=== PATIENT | male | born 1965 | race Caucasian/White ===

== ENCOUNTER 2018-09-25 23:33 | Emergency (ER) | payer SELFPAY ==
--- NOTE | 2018-09-25 23:53 | EDM.PDOC ---
ED HPI GENERAL MEDICAL PROBLEM - General Chief Complaint: Back Pain or Injury Stated Complaint: BACK PAIN Time Seen by Provider: 09/25/18 23:48 - History of Present Illness INITIAL COMMENTS - FREE TEXT/NARRATIVE: HISTORY AND PHYSICAL: History of present illness: History 23-year-old male history of chronic back pain was diagnosed in 2018 with a L1 compression fracture he denies any recent trauma and chief complaint is low back pain Review of systems: As per history of present illness and below otherwise all systems reviewed and negative. Past medical history: As per history of present illness and as reviewed below otherwise noncontributory. Surgical history: As per history of present illness and as reviewed below otherwise noncontributory. Social history: No reported history of drug or alcohol abuse. Family history: As per history of present illness and as reviewed below otherwise noncontributory. Physical exam: HEENT: Atraumatic, normocephalic, pupils reactive, negative for conjunctival pallor or scleral icterus, mucous membranes moist, throat clear, neck supple, nontender, trachea midline. Lungs: Clear to auscultation, breath sounds equal bilaterally, chest nontender. Heart: S1S2, regular, negative for clicks, rubs, or JVD. Abdomen: Soft, nondistended, nontender. Negative for masses or hepatosplenomegaly. Negative for costovertebral tenderness. Pelvis: Stable nontender. Genitourinary: Deferred. Rectal: Deferred. Extremities: Atraumatic, negative for cords or calf pain. Neurovascular unremarkable. Neuro: Awake, alert, oriented. Cranial nerves II through XII unremarkable. Cerebellum unremarkable. Motor and sensory unremarkable throughout. Exam nonfocal. Back: Patient is mild paravertebral tenderness level lumbar spine no vertebral body or point tenderness he is able stand on his toes back on his heels deep tendon reflex motor sensory are normal Diagnostics: CT lumbar spine Therapeutics: Tylenol 975 mg by mouth Impression: #1 chronic back pain #2 L1 compression fracture Definitive disposition and diagnosis as appropriate pending reevaluation and review of above. Lower Back Pain Score (Numeric/FACES): 8 - Related Data Allergies Allergy/AdvReac Type Severity Reaction Status Date / Time No Known Allergies Allergy Verified 09/25/18 23:47 Home Meds: Home Meds . [No Known Home Meds] 09/25/18 [History] Past Medical History HEENT History: Reports: Impaired Vision, Other (See Below) Other HEENT History: uses corrective glasses Cardiovascular History: Reports: None Respiratory History: Reports: None Gastrointestinal History: Reports: Cholelithiasis Genitourinary History: Reports: Prostate Disorder, Other (See Below) Other Genitourinary History: unable to see urologist- no insurance Musculoskeletal History: Reports: None Neurological History: Reports: None Psychiatric History: Reports: Addiction, Other (See Below) Other Psychiatric History: Alcoholic. seasonal depression Endocrine/Metabolic History: Reports: None Hematologic History: Reports: None Immunologic History: Reports: None Oncologic (Cancer) History: Reports: None Dermatologic History: Reports: None, Other (See Below) Other Dermatologic History: claimed he has "acne all over his body" - Infectious Disease History Infectious Disease History: Reports: Chicken Pox - Past Surgical History Head Surgeries/Procedures: Reports: None HEENT Surgical History: Reports: None GI Surgical History: Reports: Cholecystectomy Male Surgical History: Reports: None Musculoskeletal Surgical History: Reports: None Social & Family History - Family History Family Medical History: Noncontributory - Caffeine Use Caffeine Use: Reports: Soda ED ROS GENERAL - Review of Systems Review Of Systems: ROS reveals no pertinent complaints other than HPI. ED EXAM, GENERAL - Physical Exam Exam: See Below (See dictation) Course - Vital Signs Last Recorded V/S: Last Vital Signs Temp 36.4 C 09/26/18 01:59 Pulse 92 09/26/18 01:59 Resp 18 09/26/18 01:59 BP 126/89 09/26/18 01:59 Pulse Ox 97 09/26/18 01:59 - Orders/Labs/Meds Meds: Medications Discontinued Medications Generic Name Dose Route Start Last Admin Trade Name Grabiel PRN Reason Stop Dose Admin Acetaminophen 975 mg 09/25/18 23:51 09/26/18 00:18 Tylenol PO 09/25/18 23:52 Not Given NOW ONE Departure - Departure Time of Disposition: 02:53 Disposition: Home, Self-Care 01 Condition: Good Clinical Impression: Chronic back pain - Discharge Information Instructions: Chronic Back Pain Referrals: PCP,None [Primary Care Provider] - Forms: ED Department Discharge Additional Instructions: The following information is given to patients seen in the emergency department who are being discharged to home. This information is to outline your options for follow-up care. We provide all patients seen in our emergency department with a follow-up referral. The need for follow-up, as well as the timing and circumstances, are variable depending upon the specifics of your emergency department visit. If you don't have a primary care physician on staff, we will provide you with a referral. We always advise you to contact your personal physician following an emergency department visit to inform them of the circumstance of the visit and for follow-up with them and/or the need for any referrals to a consulting specialist. The emergency department will also refer you to a specialist when appropriate. This referral assures that you have the opportunity for followup care with a specialist. All of these measure are taken in an effort to provide you with optimal care, which includes your followup. Under all circumstances we always encourage you to contact your private physician who remains a resource for coordinating your care. When calling for followup care, please make the office aware that this follow-up is from your recent emergency room visit. If for any reason you are refused follow-up, please contact the [facility] emergency department at and asked to speak to the emergency department charge nurse. Follow-up primary medical doctor as needed as discussed Tylenol as directed return as needed as discussed
[2018-09-26] MEDS: Acetaminophen 325 MG Tab PO ONE ×2 (00:16→00:18)
--- NOTE | 2018-09-26 01:02 | CT ---
INDICATION: Back pain. CT LUMBAR SPINE WITHOUT CONTRAST TECHNIQUE: Multidetector axial CT imaging was performed through the lumbar spine, without contrast. Sagittal and coronal reconstructions were generated. FINDINGS: There is an age-indeterminate [id number] compression fracture of the L1 vertebral body which is favored to be subacute to chronic. This fracture is associated with approximately 7 millimeters of retropulsion resulting in mild spinal stenosis at L1. No other fractures are identified. Disc spaces appear preserved. Endplate spurring is seen at L1-2 and L5-S1. Mild degenerative changes are seen in the lower lumbar facet joints and in the right sacroiliac joint. Spondylosis produces mild spinal stenosis at L4-5. Osseous alignment is within normal limits and no subluxation is seen. Paravertebral soft tissues are unremarkable. There is incompletely imaged fatty infiltration of the liver, retroperitoneal fat stranding, and intraperitoneal fluid. Trace right pleural effusion is also noted. IMPRESSION: 1. No acute fracture identified. 2. Moderate to severe compression fracture of L1, favored to be subacute to chronic. 3. Mild lumbar spondylosis as noted above. 4. Incompletely imaged retroperitoneal fat stranding, intraperitoneal free fluid, and small right pleural effusion. CT of the abdomen and pelvis should be considered for further evaluation. MICHELLE MYRICK MD [employer] Dictated by Dandre Myrick MD @ 09/26/2018 12:59:47 AM Dictated by: Dandre Myrick MD @ 09/26/2018 01:00:51 (Electronically Signed)
[2018-09-26 02:10] VITALS: BP 126/89
== END 2018-09-26 02:00 | disposition home or self-care (01) ==
LOC: MW.ED 23:33
DX: M48.56XA Collapsed vertebra, not elsewhere classified, lumbar region, initial encounter for fracture (principal)
CPT/HCPCS: 72131; 72131-26; 99283; 99283-25; A9270-GY

== ENCOUNTER 2018-12-12 16:29 | Observation (INO) | payer OTHER, MEDICAID ==
--- NOTE | 2018-12-12 16:56 | EDM.PDOC ---
ED HPI GENERAL MEDICAL PROBLEM - General Chief Complaint: Abdominal Pain Stated Complaint: STOMACH PAIN AND SWELLING Time Seen by Provider: 12/12/18 16:33 Source of Information: Reports: Patient History Limitations: Reports: No Limitations - History of Present Illness INITIAL COMMENTS - FREE TEXT/NARRATIVE: HISTORY AND PHYSICAL: History of present illness: Patient is a 53-year-old male presents to the ED today with concern of abdominal pain, abdominal swelling, and bilateral lower leg swelling 4 days. Patient states he is a chronic alcohol user since high school and has drank off and on. Patient states he hasn't drink the last 2 days because he does not have an appetite. Patient states he drinks approximately 12 shots a day of hard alcohol. Patient states he is also a smoker and has been since he was a teenager and smoke about half pack a day. Patient states he's never been diagnosed with any health history and is not on any medications. Patient states he's had his abdomen and his lower legs swell in the past but has resolved quickly unlike this time which has been now for 4 days. Patient states he has not been eating and drinking because he does not feel hungry. Patient states he has lost a lot of weight over the past couple weeks but is unsure of how much weight he has lost. Patient denies any other symptoms or concerns. Patient denies fever, chills, chest pain, shortness of breath, or cough. Denies headache, neck stiff ness, change in vision, syncope, or near syncope. Denies nausea, vomiting, diarrhea, constipation, or dysuria. Has not noted any blood in urine or stool. Review of systems: As per history of present illness and below otherwise all systems reviewed and negative. Past medical history: As per history of present illness and as reviewed below otherwise noncontributory. Surgical history: As per history of present illness and as reviewed below otherwise noncontributory. Social history: See social history for further information Family history: As per history of present illness and as reviewed below otherwise noncontributory. Physical exam: General: Patient is alert, oriented, and in no acute distress. Patient laying comfortably on exam table. Patient appears older than stated age and chronically ill / disheveled. HEENT: Atraumatic, normocephalic, pupils equal and reactive bilaterally, negative for conjunctival pallor but positive for bilateral scleral icterus, mucous membranes dry, TMs normal bilaterally, throat clear, neck supple, nontender, trachea midline. No drooling or trismus noted. No meningeal signs. No hot potato voice noted. Lungs: Clear to auscultation, breath sounds equal bilaterally, chest nontender. Heart: S1S2, regular rate and rhythm without overt murmur Abdomen: Exam is limited due to distention. Firm, distended, generalized moderate tenderness to palpation. Negative for costovertebral tenderness. Pelvis: Stable nontender. Genitourinary: Deferred. Rectal: Deferred. Skin: Generalized jaundice. Extremities: Atraumatic, negative for cords or calf pain. Neurovascular unremarkable. 3+ pitting edema of bilateral lower extremities to the knees. Neuro: Awake, alert, oriented. Cranial nerves II through XII unremarkable. Cerebellum unremarkable. Motor and sensory unremarkable throughout. Exam nonfocal. Notes: Dr. Durham consulted on patient Voices understanding and is agreeable to plan of care. Denies any further questions or concerns at this time. Diagnostics: CBC, CMP, UA, EKG, chest x-ray, troponin, amylase, lipase, BMP, PT/INR, ammonia , abdominal pelvic CT Therapeutics: Lactulose Impression: Liver cirrhosis with ascites Elevated Ammonia Pancreatitis Plan: Definitive disposition and diagnosis as appropriate pending reevaluation and review of above. - Related Data Allergies Allergy/AdvReac Type Severity Reaction Status Date / Time No Known Allergies Allergy Verified 09/25/18 23:47 Home Meds: Home Meds . [No Known Home Meds] 09/25/18 [History] Past Medical History HEENT History: Reports: Impaired Vision, Other (See Below) Other HEENT History: uses corrective glasses Cardiovascular History: Reports: None Respiratory History: Reports: None Gastrointestinal History: Reports: Cholelithiasis Genitourinary History: Reports: Prostate Disorder, Other (See Below) Other Genitourinary History: unable to see urologist- no insurance Musculoskeletal History: Reports: None Neurological History: Reports: None Psychiatric History: Reports: Addiction, Other (See Below) Other Psychiatric History: Alcoholic. seasonal depression Endocrine/Metabolic History: Reports: None Hematologic History: Reports: None Immunologic History: Reports: None Oncologic (Cancer) History: Reports: None Dermatologic History: Reports: None, Other (See Below) Other Dermatologic History: claimed he has "acne all over his body" - Infectious Disease History Infectious Disease History: Reports: Chicken Pox - Past Surgical History Head Surgeries/Procedures: Reports: None HEENT Surgical History: Reports: None GI Surgical History: Reports: Cholecystectomy Male Surgical History: Reports: None Musculoskeletal Surgical History: Reports: None Social & Family History - Family History Family Medical History: Noncontributory - Caffeine Use Caffeine Use: Reports: Soda ED ROS GENERAL - Review of Systems Review Of Systems: ROS reveals no pertinent complaints other than HPI. ED EXAM, GENERAL - Physical Exam Exam: See Below (see dictation) Course - Vital Signs Last Recorded V/S: Last Vital Signs Temp 36.4 C 12/12/18 16:41 Pulse 88 12/12/18 20:40 Resp 20 12/12/18 20:40 BP 133/86 12/12/18 20:40 Pulse Ox 97 12/12/18 20:40 - Orders/Labs/Meds Orders: Active Orders 24 hr Category Date Time Status EKG Documentation Completion [RC] STAT Care 12/12/18 16:49 Active Medication Orders Docusate Sodium (Colace) 100 mg PO BID PRN PRN Reason: Constipation Furosemide (Lasix) 20 mg IVPUSH DAILY JOE Heparin Sodium (Porcine) (Heparin Sodium) 5,000 units SUBCUT Q8H JOE Ibuprofen (Motrin) 400 mg PO Q6H PRN PRN Reason: Pain (mild 1-3) Ondansetron HCl (Zofran Odt) 4 mg PO Q4H PRN PRN Reason: nausea, able to take PO Oxycodone HCl (Oxycodone) 5 mg PO Q4H PRN PRN Reason: Pain (moderate 4-6) Labs: Laboratory Tests 12/12/18 12/12/18 12/12/18 Range/Units 16:45 16:45 16:45 WBC 7.59 (4.0-11.0) K/uL RBC 3.63 L (4.50-5.90) M/uL Hgb 12.9 L (13.0-17.0) g/dL Hct 37.8 L (38.0-50.0) % MCV 104.1 H (80.0-98.0) fL MCH 35.5 H (27.0-32.0) pg MCHC 34.1 (31.0-37.0) g/dL RDW Std Deviation 53.5 (28.0-62.0) fl RDW Coeff of Qing 14 (11.0-15.0) % Plt Count 149 L (150-400) K/uL MPV 11.60 (7.40-12.00) fL Neut % (Auto) 66.6 (48.0-80.0) % Lymph % (Auto) 20.0 (16.0-40.0) % Boone % (Auto) 9.6 (0.0-15.0) % Eos % (Auto) 3.3 (0.0-7.0) % Baso % (Auto) 0.5 (0.0-1.5) % Neut # (Auto) 5.1 (1.4-5.7) K/uL Lymph # (Auto) 1.5 (0.6-2.4) K/uL Boone # (Auto) 0.7 (0.0-0.8) K/uL Eos # (Auto) 0.3 (0.0-0.7) K/uL Baso # (Auto) 0.0 (0.0-0.1) K/uL Nucleated RBC % 0.0 /100WBC Nucleated RBCs # 0 K/uL INR Sodium 138 (136-148) mmol/L Potassium 3.8 (3.5-5.1) mmol/L Chloride 103 (98-107) mmol/L Carbon Dioxide 25.0 (21.0-32.0) mmol/L BUN 6 L (7.0-18.0) mg/dL Creatinine 0.8 (0.8-1.3) mg/dL Est Cr Clr Drug Dosing 113.79 mL/min Estimated GFR (MDRD) > 60.0 ml/min Glucose 111 H (74-106) mg/dL Calcium 9.0 (8.5-10.1) mg/dL Phosphorus (2.6-4.7) mg/dL Magnesium (1.8-2.4) mg/dL Total Bilirubin 5.3 H (0.2-1.0) mg/dL AST 79 H (15-37) IU/L ALT 38 (14-63) IU/L Alkaline Phosphatase 125 H (46-116) U/L Ammonia 96 H (19-54) ug/dL Troponin I (0.000-0.056) ng/mL B-Natriuretic Peptide (<100) PG/ML Total Protein 7.9 (6.4-8.2) g/dL Albumin 2.4 L (3.4-5.0) g/dL Globulin 5.5 H (2.6-4.0) g/dL Albumin/Globulin Ratio 0.4 L (0.9-1.6) Amylase 55 (25-115) U/L Lipase 533 H (73-393) U/L Urine Color Urine Appearance Urine pH (5.0-8.0) Ur Specific [place] (1.001-1.035) Urine Protein (NEGATIVE) mg/dL Urine Glucose (UA) (NEGATIVE) mg/dL Urine Ketones (NEGATIVE) mg/dL Urine Occult Blood (NEGATIVE) Urine Nitrite (NEGATIVE) Urine Bilirubin (NEGATIVE) Urine Ictotest Urine Urobilinogen (<2.0) EU/dL Ur Leukocyte Esterase (NEGATIVE) 12/12/18 12/12/18 12/12/18 Range/Units 16:45 16:45 16:45 WBC (4.0-11.0) K/uL RBC (4.50-5.90) M/uL Hgb (13.0-17.0) g/dL Hct (38.0-50.0) % MCV (80.0-98.0) fL MCH (27.0-32.0) pg MCHC (31.0-37.0) g/dL RDW Std Deviation (28.0-62.0) fl RDW Coeff of Qing (11.0-15.0) % Plt Count (150-400) K/uL MPV (7.40-12.00) fL Neut % (Auto) (48.0-80.0) % Lymph % (Auto) (16.0-40.0) % Boone % (Auto) (0.0-15.0) % Eos % (Auto) (0.0-7.0) % Baso % (Auto) (0.0-1.5) % Neut # (Auto) (1.4-5.7) K/uL Lymph # (Auto) (0.6-2.4) K/uL Boone # (Auto) (0.0-0.8) K/uL Eos # (Auto) (0.0-0.7) K/uL Baso # (Auto) (0.0-0.1) K/uL Nucleated RBC % /100WBC Nucleated RBCs # K/uL INR 1.34 Sodium (136-148) mmol/L Potassium (3.5-5.1) mmol/L Chloride (98-107) mmol/L Carbon Dioxide (21.0-32.0) mmol/L BUN (7.0-18.0) mg/dL Creatinine (0.8-1.3) mg/dL Est Cr Clr Drug Dosing mL/min Estimated GFR (MDRD) ml/min Glucose (74-106) mg/dL Calcium (8.5-10.1) mg/dL Phosphorus (2.6-4.7) mg/dL Magnesium (1.8-2.4) mg/dL Total Bilirubin (0.2-1.0) mg/dL AST (15-37) IU/L ALT (14-63) IU/L Alkaline Phosphatase (46-116) U/L Ammonia (19-54) ug/dL Troponin I < 0.050 (0.000-0.056) ng/mL B-Natriuretic Peptide 102 H (<100) PG/ML Total Protein (6.4-8.2) g/dL Albumin (3.4-5.0) g/dL Globulin (2.6-4.0) g/dL Albumin/Globulin Ratio (0.9-1.6) Amylase (25-115) U/L Lipase (73-393) U/L Urine Color Urine Appearance Urine pH (5.0-8.0) Ur Specific [place] (1.001-1.035) Urine Protein (NEGATIVE) mg/dL Urine Glucose (UA) (NEGATIVE) mg/dL Urine Ketones (NEGATIVE) mg/dL Urine Occult Blood (NEGATIVE) Urine Nitrite (NEGATIVE) Urine Bilirubin (NEGATIVE) Urine Ictotest Urine Urobilinogen (<2.0) EU/dL Ur Leukocyte Esterase (NEGATIVE) 12/12/18 12/12/18 Range/Units 16:45 19:00 WBC (4.0-11.0) K/uL RBC (4.50-5.90) M/uL Hgb (13.0-17.0) g/dL Hct (38.0-50.0) % MCV (80.0-98.0) fL MCH (27.0-32.0) pg MCHC (31.0-37.0) g/dL RDW Std Deviation (28.0-62.0) fl RDW Coeff of Qing (11.0-15.0) % Plt Count (150-400) K/uL MPV (7.40-12.00) fL Neut % (Auto) (48.0-80.0) % Lymph % (Auto) (16.0-40.0) % Boone % (Auto) (0.0-15.0) % Eos % (Auto) (0.0-7.0) % Baso % (Auto) (0.0-1.5) % Neut # (Auto) (1.4-5.7) K/uL Lymph # (Auto) (0.6-2.4) K/uL Boone # (Auto) (0.0-0.8) K/uL Eos # (Auto) (0.0-0.7) K/uL Baso # (Auto) (0.0-0.1) K/uL Nucleated RBC % /100WBC Nucleated RBCs # K/uL INR Sodium (136-148) mmol/L Potassium (3.5-5.1) mmol/L Chloride (98-107) mmol/L Carbon Dioxide (21.0-32.0) mmol/L BUN (7.0-18.0) mg/dL Creatinine (0.8-1.3) mg/dL Est Cr Clr Drug Dosing mL/min Estimated GFR (MDRD) ml/min Glucose (74-106) mg/dL Calcium (8.5-10.1) mg/dL Phosphorus 3.7 (2.6-4.7) mg/dL Magnesium 1.9 (1.8-2.4) mg/dL Total Bilirubin (0.2-1.0) mg/dL AST (15-37) IU/L ALT (14-63) IU/L Alkaline Phosphatase (46-116) U/L Ammonia (19-54) ug/dL Troponin I (0.000-0.056) ng/mL B-Natriuretic Peptide (<100) PG/ML Total Protein (6.4-8.2) g/dL Albumin (3.4-5.0) g/dL Globulin (2.6-4.0) g/dL Albumin/Globulin Ratio (0.9-1.6) Amylase (25-115) U/L Lipase (73-393) U/L Urine Color YELLOW Urine Appearance CLEAR Urine pH 7.5 (5.0-8.0) Ur Specific [place] 1.010 (1.001-1.035) Urine Protein NEGATIVE (NEGATIVE) mg/dL Urine Glucose (UA) NEGATIVE (NEGATIVE) mg/dL Urine Ketones NEGATIVE (NEGATIVE) mg/dL Urine Occult Blood NEGATIVE (NEGATIVE) Urine Nitrite NEGATIVE (NEGATIVE) Urine Bilirubin SMALL H (NEGATIVE) Urine Ictotest NEGATIVE Urine Urobilinogen 2.0 H (<2.0) EU/dL Ur Leukocyte Esterase NEGATIVE (NEGATIVE) Meds: Medications Generic Name Dose Route Start Last Admin Trade Name Freq PRN Reason Stop Dose Admin Docusate Sodium 100 mg 12/12/18 19:41 Colace PO BID PRN Constipation Furosemide 20 mg 12/13/18 09:00 Lasix IVPUSH DAILY [facility] Heparin Sodium (Porcine) 5,000 units 12/12/18 19:45 Heparin Sodium SUBCUT Q8H JOE Ibuprofen 400 mg 12/12/18 19:41 Motrin PO Q6H PRN Pain (mild 1-3) Ondansetron HCl 4 mg 12/12/18 19:41 Zofran Odt PO Q4H PRN nausea, able to take PO Oxycodone HCl 5 mg 12/12/18 19:41 Oxycodone PO Q4H PRN Pain (moderate 4-6) Discontinued Medications Generic Name Dose Route Start Last Admin Trade Name Freq PRN Reason Stop Dose Admin Iopamidol 95 ml 12/12/18 18:48 12/12/18 18:49 Isovue Multipack-370 (76%) IVPUSH 12/12/18 18:49 95 ml ONETIME ONE Administration Lactulose 20 gm 12/12/18 19:13 12/12/18 19:24 Chronulac PO 12/12/18 19:14 20 gm ONETIME ONE Administration Departure - Departure Time of Disposition: 21:05 Disposition: Refer to Observation Clinical Impression: Pancreatitis Qualifiers: Chronicity: acute Pancreatitis type: alcohol induced Acute pancreatitis complication: unspecified Qualified Code(s): K85.20 - Alcohol induced acute pancreatitis without necrosis or infection Alcoholic cirrhosis Qualifiers: Ascites presence: with ascites Qualified Code(s): K70.31 - Alcoholic cirrhosis of liver with ascites - Discharge Information - My Orders Last 24 Hours: My Active Orders 12/12/18 16:49 EKG Documentation Completion [RC] STAT - Assessment/Plan Last 24 Hours: My Active Orders 12/12/18 16:49 EKG Documentation Completion [RC] STAT
[2018-12-12 17:18] LABS: BLOOD UREA NITROGEN,BUN 6 mg/dL (7.0-18.0); CHLORIDE,CL 103 mmol/L (98-107); GLUCOSE RANDOM 111 mg/dL (74-106); LIPASE 533 U/L (73-393); POTASSIUM,K 3.8 mmol/L (3.5-5.1); SODIUM,NA 138 mmol/L (136-148)
--- NOTE | 2018-12-12 18:33 | US ---
INDICATION: Back pain TECHNIQUE: Ultrasound abdomen limited. Sonographic images of the right upper quadrant were obtained using ziegler-scale and color Doppler images. COMPARISON: March 30, 2018 FINDINGS: Liver: The liver has a nodular appearance. The liver measures 19.2 cm in length. No focal masses. No intrahepatic biliary dilatation. Gallbladder: Status post cholecystectomy. Common bile duct: Only the proximal common bile duct is visualized and measures 0.5 cm in diameter. Pancreas: Normal. Right kidney: 13.7 cm. Normal echotexture and cortex. No masses, stones, or hydronephrosis. Moderate amount of ascites. IMPRESSION: Status post cholecystectomy. Only the proximal common bile duct is visualized and is normal in diameter. Consider MRCP for further evaluation if clinically indicated. Moderate amount of ascites. The liver has a nodular appearance and there is mild hepatomegaly. Correlate with clinical history and LFTs. Dictated by Delmy Fernandez MD @ Dec 12 2018 6:28PM Signed by Dr. Delmy Fernandez @ Dec 12 2018 6:32PM
[2018-12-12] MEDS ORDERED: Iopamidol 755 MG/ML 500 ML Multipack Bottle IVPUSH ONE (18:48)
--- NOTE | 2018-12-12 18:48 | CT ---
INDICATION: Pain and swelling TECHNIQUE: CT abdomen and pelvis acquired with 95 cc Isovue 370 intravenous contrast. COMPARISON: Right upper quadrant ultrasound 12/12/2018 FINDINGS: Lower chest: Coronary atherosclerosis. Calcified mediastinal and hilar lymph nodes with bilateral calcified pulmonary nodules. Trace left pleural effusion with minimal dependent atelectasis left lower lobe. Discoid atelectasis right lower lobe. Liver: Liver has mild nodularity was contour consistent with a cirrhotic morphology with hepatic cysts, largest measuring 2.2 centimeters. Recanalized paraumbilical vein demonstrated. Portal vein patent. Gallbladder and bile ducts: Status post cholecystectomy. Pancreas: Unremarkable. No mass or inflammation. Spleen: Calcifications within the spleen consistent with old granulomatous disease. Adrenal glands: Unremarkable. No nodules. Kidneys: Unremarkable. No masses, stones, or hydronephrosis. GI tract: The stomach is decompressed and unremarkable. There is no definite evidence of obstruction. No dilated loops of large or small intestine. Vasculature: Atherosclerosis without abdominal aortic aneurysm. Left upper quadrant varices. Omentum/Peritoneum/Abdominal Wall: [id number] amount of ascites which is low density. Pelvis: Bladder unremarkable. Bones: Old compression fracture L1. IMPRESSION: 1. Nodular contour of the liver consistent with a cirrhotic morphology with recanalized paraumbilical vein and upper abdominal varices. 2. Moderate to large amount of ascites, presumed secondary to portal hypertension. 3. Trace left pleural effusion. 4. Old granulomatous disease. Please note that all CT scans at this facility use dose modulation, iterative reconstruction, and/or weight-based dosing when appropriate to reduce radiation dose to as low as reasonably achievable. Dictated by David Roth MD @ Dec 12 2018 6:38PM Signed by Dr. David Roth @ Dec 12 2018 6:47PM
--- NOTE | 2018-12-12 18:48 | CR ---
INDICATION: Retaining fluid TECHNIQUE: Chest 1 view. COMPARISON: 03/29/2018 FINDINGS: Cardiovascular and mediastinum: Heart size and vasculature are normal in caliber and appearance. Mediastinum is within normal limits. Lungs and pleural space: Elevation right hemidiaphragm with adjacent atelectasis. No sign of infiltrate or mass. No sign of pleural effusion. No pneumothorax. Bones and soft tissues: No significant findings. IMPRESSION: Unremarkable chest. Dictated by Sabino Hammonds MD @ 12/12/2018 6:47:16 PM Dictated by: Sabino Hammonds MD @ 12/12/2018 18:47:25 (Electronically Signed)
[2018-12-12] MEDS ORDERED: Lactulose Soln 10 GM/15 ML 15 ML UD Cup PO ONE (19:13)
[2018-12-12] MEDS ORDERED: Ondansetron 4 MG Tab.DIS PO PRN (19:41)
[2018-12-12] MEDS ORDERED: oxyCODONE 5 MG Tab PO PRN (19:41)
[2018-12-12] MEDS ORDERED: Ibuprofen 400 MG Tab PO PRN (19:41)
[2018-12-12] MEDS ORDERED: Docusate Sodium 100 MG Cap PO PRN (19:41)
[2018-12-12] MEDS ORDERED: Heparin Sodium 5,000 Units/ML Vial SUBCUT SCH (19:45)
--- NOTE | 2018-12-12 19:50 | PCM.HP.2 ---
H&P History of Present Illness - General Date of Service: 12/12/18 Admit Problem/Dx: Admission Diagnosis/Problem Admission Diagnosis/Problem Pancreatitis Source of Information: Patient History Limitations: Reports: No Limitations - History of Present Illness Initial Comments - Free Text/Narative: The patient is a 53-year-old gentleman who presented to the emergency department with a complaint of abdominal pain and swelling. The patient says that his abdominal pain is been generalized and he is feeling bloated. He does not have any specific aggravating or relieving factors. The patient says he has not had any hematemesis or easy bruising. The patient was last in hospital in April of this year. This was for alcohol-related seizure disorder. The patient reports that his last drink was probably 2-3 days ago. He has denied any nausea or vomiting. He has not taking any medications chronically. Patient says that he has not been diagnosed with any medical problems. The patient also elicits a poor appetite. The patient has denied any fever or chills. Onset of Symptoms: Reports: Unknown/Unsure Duration of Symptoms: Reports: Week(s):, Chronic, Getting Worse Location: Reports: Abdomen Quality: Reports: Ache, Pressure Severity: Moderate Improves with: Reports: None Worsens with: Reports: Movement Context: Reports: Other (Heavy alcohol use.) Associated Symptoms: Reports: No Other Symptoms - Related Data Allergies/Adverse Reactions: Allergies Allergy/AdvReac Type Severity Reaction Status Date / Time No Known Allergies Allergy Verified 12/12/18 21:34 Home Medications: Home Meds . [No Known Home Meds] 09/25/18 [History] Past Medical History HEENT History: Reports: Impaired Vision, Other (See Below) Other HEENT History: uses corrective glasses Cardiovascular History: Reports: None Respiratory History: Reports: None Gastrointestinal History: Reports: Cholelithiasis Genitourinary History: Reports: Prostate Disorder, Other (See Below) Other Genitourinary History: unable to see urologist- no insurance Musculoskeletal History: Reports: None Neurological History: Reports: None Psychiatric History: Reports: Addiction, Other (See Below) Other Psychiatric History: Alcoholic. seasonal depression Endocrine/Metabolic History: Reports: None Hematologic History: Reports: None Immunologic History: Reports: None Oncologic (Cancer) History: Reports: None Dermatologic History: Reports: None, Other (See Below) Other Dermatologic History: claimed he has "acne all over his body" - Infectious Disease History Infectious Disease History: Reports: Chicken Pox - Past Surgical History Head Surgeries/Procedures: Reports: None HEENT Surgical History: Reports: None GI Surgical History: Reports: Cholecystectomy Male Surgical History: Reports: None Musculoskeletal Surgical History: Reports: None Social & Family History - Family History Family Medical History: Noncontributory - Tobacco Use Smoking Status *Q: Current Every Day Smoker Years of Tobacco use: 33 Packs/Tins Daily: 1 - Caffeine Use Caffeine Use: Reports: Soda - Recreational Drug Use Recreational Drug Use: No - Living Situation & Occupation Living situation: Reports: Single Occupation: Unemployed H&P Review of Systems - Review of Systems: Review Of Systems: See Below General: Reports: Decreased Appetite, Weight Loss HEENT: Reports: No Symptoms Pulmonary: Reports: No Symptoms Cardiovascular: Reports: No Symptoms Gastrointestinal: Reports: Abdominal Pain, Distension, Other (Bloating). Denies : Hematemesis, Hematochezia Genitourinary: Reports: No Symptoms Musculoskeletal: Reports: No Symptoms Skin: Reports: No Symptoms Psychiatric: Reports: No Symptoms Neurological: Reports: No Symptoms Hematologic/Lymphatic: Reports: No Symptoms Immunologic: Reports: No Symptoms Exam - Exam Exam: See Below - Vital Signs Vital Signs: Last Vital Signs Temp 36.4 C 12/12/18 16:41 Pulse 84 12/12/18 18:56 Resp 18 12/12/18 18:56 BP 134/91 H 12/12/18 18:56 Pulse Ox 98 12/12/18 18:56 Weight: 77.111 kg - Exam Quality Assessment: Other (Significant upper body muscle wasting). No: Supplemental Oxygen General: Alert, Oriented, Cooperative HEENT: Conjunctiva Clear, EACs Clear, EOMI, Pupils Equal, Scleral Icterus, PERRLA. No: Mucosa Moist & [place] (Dry) Neck: Supple, Trachea Midline, Carotid Bruit Lungs: Clear to Auscultation Cardiovascular: Regular Rate, Regular Rhythm GI/Abdominal Exam: Normal Bowel Sounds, Soft, Distended, Tender (Epigastrium), Other (Ascites) Back Exam: No: Normal Inspection (Decrease musculature) Extremities: Pedal Edema (+3 pitting edema). No: Normal Inspection Skin: Warm, Dry, Intact Neurological: Cranial Nerves Intact Neuro Extensive - Mental Status: Alert, Oriented x3, Normal Mood/Affect Psychiatric: Alert, Normal Affect, Normal Mood - Patient Data Lab Results Last 24 hrs: Laboratory Results - last 24 hr 12/12/18 12/12/18 12/12/18 Range/Units 16:45 16:45 16:45 WBC 7.59 (4.0-11.0) K/uL RBC 3.63 L (4.50-5.90) M/uL Hgb 12.9 L (13.0-17.0) g/dL Hct 37.8 L (38.0-50.0) % MCV 104.1 H (80.0-98.0) fL MCH 35.5 H (27.0-32.0) pg MCHC 34.1 (31.0-37.0) g/dL RDW Std Deviation 53.5 (28.0-62.0) fl RDW Coeff of Qing 14 (11.0-15.0) % Plt Count 149 L (150-400) K/uL MPV 11.60 (7.40-12.00) fL Neut % (Auto) 66.6 (48.0-80.0) % Lymph % (Auto) 20.0 (16.0-40.0) % [place]ila % (Auto) 9.6 (0.0-15.0) % Eos % (Auto) 3.3 (0.0-7.0) % Baso % (Auto) 0.5 (0.0-1.5) % Neut # (Auto) 5.1 (1.4-5.7) K/uL Lymph # (Auto) 1.5 (0.6-2.4) K/uL [place]ila # (Auto) 0.7 (0.0-0.8) K/uL Eos # (Auto) 0.3 (0.0-0.7) K/uL Baso # (Auto) 0.0 (0.0-0.1) K/uL Nucleated RBC % 0.0 /100WBC Nucleated RBCs # 0 K/uL INR Sodium 138 (136-148) mmol/L Potassium 3.8 (3.5-5.1) mmol/L Chloride 103 (98-107) mmol/L Carbon Dioxide 25.0 (21.0-32.0) mmol/L BUN 6 L (7.0-18.0) mg/dL Creatinine 0.8 (0.8-1.3) mg/dL Est Cr Clr Drug Dosing 113.79 mL/min Estimated GFR (MDRD) > 60.0 ml/min Glucose 111 H (74-106) mg/dL Calcium 9.0 (8.5-10.1) mg/dL Total Bilirubin 5.3 H (0.2-1.0) mg/dL AST 79 H (15-37) IU/L ALT 38 (14-63) IU/L Alkaline Phosphatase 125 H (46-116) U/L Ammonia 96 H (19-54) ug/dL Troponin I (0.000-0.056) ng/mL B-Natriuretic Peptide (<100) PG/ML Total Protein 7.9 (6.4-8.2) g/dL Albumin 2.4 L (3.4-5.0) g/dL Globulin 5.5 H (2.6-4.0) g/dL Albumin/Globulin Ratio 0.4 L (0.9-1.6) Amylase 55 (25-115) U/L Lipase 533 H (73-393) U/L Urine Color Urine Appearance Urine pH (5.0-8.0) Ur Specific [place] (1.001-1.035) Urine Protein (NEGATIVE) mg/dL Urine Glucose (UA) (NEGATIVE) mg/dL Urine Ketones (NEGATIVE) mg/dL Urine Occult Blood (NEGATIVE) Urine Nitrite (NEGATIVE) Urine Bilirubin (NEGATIVE) Urine Ictotest Urine Urobilinogen (<2.0) EU/dL Ur Leukocyte Esterase (NEGATIVE) 12/12/18 12/12/18 12/12/18 Range/Units 16:45 16:45 16:45 WBC (4.0-11.0) K/uL RBC (4.50-5.90) M/uL Hgb (13.0-17.0) g/dL Hct (38.0-50.0) % MCV (80.0-98.0) fL MCH (27.0-32.0) pg MCHC (31.0-37.0) g/dL RDW Std Deviation (28.0-62.0) fl RDW Coeff of Qing (11.0-15.0) % Plt Count (150-400) K/uL MPV (7.40-12.00) fL Neut % (Auto) (48.0-80.0) % Lymph % (Auto) (16.0-40.0) % Gila % (Auto) (0.0-15.0) % Eos % (Auto) (0.0-7.0) % Baso % (Auto) (0.0-1.5) % Neut # (Auto) (1.4-5.7) K/uL Lymph # (Auto) (0.6-2.4) K/uL Gila # (Auto) (0.0-0.8) K/uL Eos # (Auto) (0.0-0.7) K/uL Baso # (Auto) (0.0-0.1) K/uL Nucleated RBC % /100WBC Nucleated RBCs # K/uL INR 1.34 Sodium (136-148) mmol/L Potassium (3.5-5.1) mmol/L Chloride (98-107) mmol/L Carbon Dioxide (21.0-32.0) mmol/L BUN (7.0-18.0) mg/dL Creatinine (0.8-1.3) mg/dL Est Cr Clr Drug Dosing mL/min Estimated GFR (MDRD) ml/min Glucose (74-106) mg/dL Calcium (8.5-10.1) mg/dL Total Bilirubin (0.2-1.0) mg/dL AST (15-37) IU/L ALT (14-63) IU/L Alkaline Phosphatase (46-116) U/L Ammonia (19-54) ug/dL Troponin I < 0.050 (0.000-0.056) ng/mL B-Natriuretic Peptide 102 H (<100) PG/ML Total Protein (6.4-8.2) g/dL Albumin (3.4-5.0) g/dL Globulin (2.6-4.0) g/dL Albumin/Globulin Ratio (0.9-1.6) Amylase (25-115) U/L Lipase (73-393) U/L Urine Color Urine Appearance Urine pH (5.0-8.0) Ur Specific [place] (1.001-1.035) Urine Protein (NEGATIVE) mg/dL Urine Glucose (UA) (NEGATIVE) mg/dL Urine Ketones (NEGATIVE) mg/dL Urine Occult Blood (NEGATIVE) Urine Nitrite (NEGATIVE) Urine Bilirubin (NEGATIVE) Urine Ictotest Urine Urobilinogen (<2.0) EU/dL Ur Leukocyte Esterase (NEGATIVE) 12/12/18 Range/Units 19:00 WBC (4.0-11.0) K/uL RBC (4.50-5.90) M/uL Hgb (13.0-17.0) g/dL Hct (38.0-50.0) % MCV (80.0-98.0) fL MCH (27.0-32.0) pg MCHC (31.0-37.0) g/dL RDW Std Deviation (28.0-62.0) fl RDW Coeff of Qing (11.0-15.0) % Plt Count (150-400) K/uL MPV (7.40-12.00) fL Neut % (Auto) (48.0-80.0) % Lymph % (Auto) (16.0-40.0) % [place]ila % (Auto) (0.0-15.0) % Eos % (Auto) (0.0-7.0) % Baso % (Auto) (0.0-1.5) % Neut # (Auto) (1.4-5.7) K/uL Lymph # (Auto) (0.6-2.4) K/uL [place] # (Auto) (0.0-0.8) K/uL Eos # (Auto) (0.0-0.7) K/uL Baso # (Auto) (0.0-0.1) K/uL Nucleated RBC % /100WBC Nucleated RBCs # K/uL INR Sodium (136-148) mmol/L Potassium (3.5-5.1) mmol/L Chloride (98-107) mmol/L Carbon Dioxide (21.0-32.0) mmol/L BUN (7.0-18.0) mg/dL Creatinine (0.8-1.3) mg/dL Est Cr Clr Drug Dosing mL/min Estimated GFR (MDRD) ml/min Glucose (74-106) mg/dL Calcium (8.5-10.1) mg/dL Total Bilirubin (0.2-1.0) mg/dL AST (15-37) IU/L ALT (14-63) IU/L Alkaline Phosphatase (46-116) U/L Ammonia (19-54) ug/dL Troponin I (0.000-0.056) ng/mL B-Natriuretic Peptide (<100) PG/ML Total Protein (6.4-8.2) g/dL Albumin (3.4-5.0) g/dL Globulin (2.6-4.0) g/dL Albumin/Globulin Ratio (0.9-1.6) Amylase (25-115) U/L Lipase (73-393) U/L Urine Color YELLOW Urine Appearance CLEAR Urine pH 7.5 (5.0-8.0) Ur Specific [place] 1.010 (1.001-1.035) Urine Protein NEGATIVE (NEGATIVE) mg/dL Urine Glucose (UA) NEGATIVE (NEGATIVE) mg/dL Urine Ketones NEGATIVE (NEGATIVE) mg/dL Urine Occult Blood NEGATIVE (NEGATIVE) Urine Nitrite NEGATIVE (NEGATIVE) Urine Bilirubin SMALL H (NEGATIVE) Urine Ictotest NEGATIVE Urine Urobilinogen 2.0 H (<2.0) EU/dL Ur Leukocyte Esterase NEGATIVE (NEGATIVE) Result Diagrams: 12/13/18 06:05 12/12/18 16:45 *Q Meaningful Use (ADM) - VTE *Q VTE Mechanical Contraindications *Q: Bilateral Lower Edema - Problem List (1) Altered mental state SNOMED Code(s): 881415196 ICD Code: R41.82 - ALTERED MENTAL STATUS, UNSPECIFIED Status: Acute Current Visit: No Problem Details: Secondary to hyperammonemia Qualifiers: Altered mental status type: disorientation Qualified Code(s): R41.0 - Disorientation, unspecified (2) Ascites SNOMED Code(s): 947194518 ICD Code: R18.8 - OTHER ASCITES Status: Chronic Priority: High Current Visit: Yes Qualifiers: Ascites type: due to alcoholic cirrhosis Qualified Code(s): K70.31 - Alcoholic cirrhosis of liver with ascites (3) Cirrhosis, alcoholic SNOMED Code(s): 426245001 ICD Code: K70.30 - ALCOHOLIC CIRRHOSIS OF LIVER WITHOUT ASCITES Status: Chronic Priority: High Current Visit: Yes Qualifiers: Ascites presence: with ascites Qualified Code(s): K70.31 - Alcoholic cirrhosis of liver with ascites (4) Hyperammonemia SNOMED Code(s): 4141821 ICD Code: E72.20 - DISORDER OF UREA CYCLE METABOLISM, UNSPECIFIED Status: Chronic Priority: High Current Visit: Yes (5) Hyperbilirubinemia SNOMED Code(s): 65162280 ICD Code: E80.6 - OTHER DISORDERS OF BILIRUBIN METABOLISM Status: Chronic Priority: Medium Current Visit: Yes (6) Portal hypertension with esophageal varices SNOMED Code(s): 35414030 ICD Code: K76.6 - PORTAL HYPERTENSION; I85.00 - ESOPHAGEAL VARICES WITHOUT BLEEDING Status: Chronic Priority: High Current Visit: Yes (7) Thrombocytopenia SNOMED Code(s): 411083425 ICD Code: D69.6 - THROMBOCYTOPENIA, UNSPECIFIED Status: Acute Current Visit: Yes (8) Alcohol abuse SNOMED Code(s): 98018952 ICD Code: F10.10 - ALCOHOL ABUSE, UNCOMPLICATED Status: Chronic Priority : High Current Visit: Yes (9) Severe protein-calorie malnutrition SNOMED Code(s): 603599659, 513834394, 334155361 ICD Code: E43 - UNSPECIFIED SEVERE PROTEIN-CALORIE MALNUTRITION Status: Chronic Priority: Medium Current Visit: Yes Problem List Initiated/Reviewed/Updated: Yes Orders Last 24hrs: Active Orders 24 hr Category Date Time Status Admission Status [Patient Status] [ADT] Stat ADT 12/12/18 19:33 Active EKG Documentation Completion [RC] STAT Care 12/12/18 16:49 Active Notify Provider Consults [RC] ASDIRECTED Care 12/12/18 19:48 Ordered Oxygen Therapy [RC] PRN Care 12/12/18 19:41 Ordered Up With Assistance [RC] ASDIRECTED Care 12/12/18 19:41 Ordered VTE/DVT Education [RC] PER UNIT ROUTINE Care 12/12/18 19:41 Ordered Vital Signs [RC] Q4H Care 12/12/18 19:41 Ordered Consult to Physician [CONS] Routine Cons 12/12/18 19:41 Ordered Regular Diet [DIET] Diet 12/13/18 Breakfast Ordered AMMONIA VENOUS [CHEM] Stat Lab 12/13/18 05:11 Ordered CBC WITH AUTO DIFF [HEME] AM Lab 12/13/18 05:11 Ordered COMPREHENSIVE METABOLIC PN,CMP [CHEM] AM Lab 12/13/18 05:11 Ordered MAGNESIUM [CHEM] Routine Lab 12/12/18 19:41 Ordered PHOSPHORUS [CHEM] Routine Lab 12/12/18 19:41 Ordered Docusate Sodium [Colace] Med 12/12/18 19:41 Ordered 100 mg PO BID PRN Heparin Sodium Med 12/12/18 19:45 Ordered 5,000 units SUBCUT Q8H Ibuprofen [Motrin] Med 12/12/18 19:41 Ordered 400 mg PO Q6H PRN Ondansetron [Zofran ODT] Med 12/12/18 19:41 Ordered 4 mg PO Q4H PRN oxyCODONE Med 12/12/18 19:41 Ordered 5 mg PO Q4H PRN VTE Mechanical Contraindications [AST] Per Unit Routine Oth 12/12/18 19:41 Ordered Resuscitation Status Routine Resus Stat 12/12/18 19:41 Ordered Medication Orders Docusate Sodium (Colace) 100 mg PO BID PRN PRN Reason: Constipation Heparin Sodium (Porcine) (Heparin Sodium) 5,000 units SUBCUT Q8H JOE Ibuprofen (Motrin) 400 mg PO Q6H PRN PRN Reason: Pain (mild 1-3) Ondansetron HCl (Zofran Odt) 4 mg PO Q4H PRN PRN Reason: nausea, able to take PO Oxycodone HCl (Oxycodone) 5 mg PO Q4H PRN PRN Reason: Pain (moderate 4-6) Assessment/Plan Comment:: The patient is a chronically ill 53-year-old gentleman who had been admitted secondary to abdominal pain. The patient does have elevation in his lipase which is likely chronic secondary to his alcohol use. The patient also has significant ascites and surgery has been consulted for paracentesis. CT scan had indicated that the patient had nodular liver contours consistent with cirrhosis. The esophageal varices that had been noted is also an indicator of portal hypertension. The patient does not have any indication of severe thrombocytopenia or coagulopathy at this time. The patient has been admitted primarily to observation and he will have a regular diet as tolerated. The patient does have significant pedal edema emesis secondary to the patient's nutritional status. He does have severe protein calorie malnutrition and this is a consideration to his alcohol consumption and chronic cirrhosis. All indications at this time indicate that this patient is likely suffering from end -stage cirrhosis. Patient's prognosis is guarded at this time. - Mortality Measure Prognosis:: Poor
[2018-12-12] MEDS: Heparin Sodium 5,000 Units/ML Vial SUBCUT SCH (22:30)
[2018-12-13] MEDS: Heparin Sodium 5,000 Units/ML Vial SUBCUT SCH ×2 (06:02→15:10)
[2018-12-13 07:29] LABS: BLOOD UREA NITROGEN,BUN 6 mg/dL (7.0-18.0); CARBON DIOXIDE,CO2 23.3 mmol/L (21.0-32.0); CHLORIDE,CL 102 mmol/L (98-107); GLUCOSE RANDOM 87 mg/dL (74-106); POTASSIUM,K 4.5 mmol/L (3.5-5.1); SODIUM,NA 139 mmol/L (136-148)
[2018-12-13] MEDS ORDERED: LORazepam 2 MG/ML SDV IVPUSH ONE ×3 (08:59→14:45)
[2018-12-13] MEDS ORDERED: Propranolol 20 MG Tab PO SCH (09:00)
[2018-12-13] MEDS ORDERED: Pantoprazole 40 MG Vial IVPUSH SCH (09:00)
[2018-12-13] MEDS ORDERED: Furosemide 20 MG/2 ML VIAL IVPUSH SCH (09:00)
--- NOTE | 2018-12-13 09:56 | PCM.DCSUM1 ---
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 Hospital course: Patient is a 53-year-old male presenting last night with increasing abdominal pain and discomfort with swelling 2-3 days; states for the past week he has been drinking large volumes of vodka; 9-10 Shots per night, after which he noticed some swelling and abdominal discomfort. On presentation to [facility] ED labs showed hyperbilirubinemia, transaminitis, CT abdomen and pelvis: large volume ascites, esophageal varices, liver cirrhosis, meld score 16. Patient was initiated on Lasix, lactulose, propranolol, Ativan per CIWAA scores. General surgery was consulted for possible paracentesis; however , was ultimately decided to discharge transfer patient to high-level care secondary to complex medical picture and worsening bilirubin. Physical examination: scleral icterus, positive fluid wave, asterixis. No current altered mental status. +3+4 pitting edema lower extremity with redness secondary to possible venous congestion. Sensation intact. Mentation intact. Follow-up: transfer to higher level care [facility]. Discharge instructions: transfer to [facility]. - Discharge Data Discharge Date: 12/13/18 Discharge Disposition: DC/Tfer to Acute Hospital 02 Condition: Fair - Referral to Home Health Primary Care Physician: PCP None - Patient Summary/Data Consults: Consultations 12/12/18 19:41 Consult to Physician [CONS] Routine - Discharge Plan *PRESCRIPTION DRUG MONITORING PROGRAM REVIEWED*: Yes *COPY OF PRESCRIPTION DRUG MONITORING REPORT IN PATIENT MIKE: Yes Home Medications: Home Meds . [No Known Home Meds] 09/25/18 [History] - Discharge Summary/Plan Comment DC Time >30 min.: No - Patient Data Vitals - Most Recent: Last Vital Signs Temp 98.2 F 12/13/18 08:36 Pulse 103 H 12/13/18 08:36 Resp 18 12/13/18 08:36 BP 130/73 12/13/18 08:36 Pulse Ox 93 L 12/13/18 08:36 Weight - Most Recent: 170 lb I&O - Last 24 hours: Intake & Output 12/12/18 12/13/18 12/13/18 22:59 06:59 14:59 Intake Total 500 Balance 500 Lab Results - Last 24 hrs: Laboratory Results - last 24 hr 12/12/18 12/12/18 12/12/18 Range/Units 16:45 16:45 16:45 WBC 7.59 (4.0-11.0) K/uL RBC 3.63 L (4.50-5.90) M/uL Hgb 12.9 L (13.0-17.0) g/dL Hct 37.8 L (38.0-50.0) % MCV 104.1 H (80.0-98.0) fL MCH 35.5 H (27.0-32.0) pg MCHC 34.1 (31.0-37.0) g/dL RDW Std Deviation 53.5 (28.0-62.0) fl RDW Coeff of Qing 14 (11.0-15.0) % Plt Count 149 L (150-400) K/uL MPV 11.60 (7.40-12.00) fL Neut % (Auto) 66.6 (48.0-80.0) % Lymph % (Auto) 20.0 (16.0-40.0) % [place] % (Auto) 9.6 (0.0-15.0) % Eos % (Auto) 3.3 (0.0-7.0) % Baso % (Auto) 0.5 (0.0-1.5) % Neut # (Auto) 5.1 (1.4-5.7) K/uL Lymph # (Auto) 1.5 (0.6-2.4) K/uL [place] # (Auto) 0.7 (0.0-0.8) K/uL Eos # (Auto) 0.3 (0.0-0.7) K/uL Baso # (Auto) 0.0 (0.0-0.1) K/uL Nucleated RBC % 0.0 /100WBC Nucleated RBCs # 0 K/uL INR Sodium 138 (136-148) mmol/L Potassium 3.8 (3.5-5.1) mmol/L Chloride 103 (98-107) mmol/L Carbon Dioxide 25.0 (21.0-32.0) mmol/L BUN 6 L (7.0-18.0) mg/dL Creatinine 0.8 (0.8-1.3) mg/dL Est Cr Clr Drug Dosing 113.79 mL/min Estimated GFR (MDRD) > 60.0 ml/min Glucose 111 H (74-106) mg/dL Calcium 9.0 (8.5-10.1) mg/dL Phosphorus (2.6-4.7) mg/dL Magnesium (1.8-2.4) mg/dL Total Bilirubin 5.3 H (0.2-1.0) mg/dL AST 79 H (15-37) IU/L ALT 38 (14-63) IU/L Alkaline Phosphatase 125 H (46-116) U/L Ammonia 96 H (19-54) ug/dL Troponin I (0.000-0.056) ng/mL B-Natriuretic Peptide (<100) PG/ML Total Protein 7.9 (6.4-8.2) g/dL Albumin 2.4 L (3.4-5.0) g/dL Globulin 5.5 H (2.6-4.0) g/dL Albumin/Globulin Ratio 0.4 L (0.9-1.6) Amylase 55 (25-115) U/L Lipase 533 H (73-393) U/L Urine Color Urine Appearance Urine pH (5.0-8.0) Ur Specific [place] (1.001-1.035) Urine Protein (NEGATIVE) mg/dL Urine Glucose (UA) (NEGATIVE) mg/dL Urine Ketones (NEGATIVE) mg/dL Urine Occult Blood (NEGATIVE) Urine Nitrite (NEGATIVE) Urine Bilirubin (NEGATIVE) Urine Ictotest Urine Urobilinogen (<2.0) EU/dL Ur Leukocyte Esterase (NEGATIVE) 12/12/18 12/12/18 12/12/18 Range/Units 16:45 16:45 16:45 WBC (4.0-11.0) K/uL RBC (4.50-5.90) M/uL Hgb (13.0-17.0) g/dL Hct (38.0-50.0) % MCV (80.0-98.0) fL MCH (27.0-32.0) pg MCHC (31.0-37.0) g/dL RDW Std Deviation (28.0-62.0) fl RDW Coeff of Qing (11.0-15.0) % Plt Count (150-400) K/uL MPV (7.40-12.00) fL Neut % (Auto) (48.0-80.0) % Lymph % (Auto) (16.0-40.0) % [place] % (Auto) (0.0-15.0) % Eos % (Auto) (0.0-7.0) % Baso % (Auto) (0.0-1.5) % Neut # (Auto) (1.4-5.7) K/uL Lymph # (Auto) (0.6-2.4) K/uL [place] # (Auto) (0.0-0.8) K/uL Eos # (Auto) (0.0-0.7) K/uL Baso # (Auto) (0.0-0.1) K/uL Nucleated RBC % /100WBC Nucleated RBCs # K/uL INR 1.34 Sodium (136-148) mmol/L Potassium (3.5-5.1) mmol/L Chloride (98-107) mmol/L Carbon Dioxide (21.0-32.0) mmol/L BUN (7.0-18.0) mg/dL Creatinine (0.8-1.3) mg/dL Est Cr Clr Drug Dosing mL/min Estimated GFR (MDRD) ml/min Glucose (74-106) mg/dL Calcium (8.5-10.1) mg/dL Phosphorus (2.6-4.7) mg/dL Magnesium (1.8-2.4) mg/dL Total Bilirubin (0.2-1.0) mg/dL AST (15-37) IU/L ALT (14-63) IU/L Alkaline Phosphatase (46-116) U/L Ammonia (19-54) ug/dL Troponin I < 0.050 (0.000-0.056) ng/mL B-Natriuretic Peptide 102 H (<100) PG/ML Total Protein (6.4-8.2) g/dL Albumin (3.4-5.0) g/dL Globulin (2.6-4.0) g/dL Albumin/Globulin Ratio (0.9-1.6) Amylase (25-115) U/L Lipase (73-393) U/L Urine Color Urine Appearance Urine pH (5.0-8.0) Ur Specific [place] (1.001-1.035) Urine Protein (NEGATIVE) mg/dL Urine Glucose (UA) (NEGATIVE) mg/dL Urine Ketones (NEGATIVE) mg/dL Urine Occult Blood (NEGATIVE) Urine Nitrite (NEGATIVE) Urine Bilirubin (NEGATIVE) Urine Ictotest Urine Urobilinogen (<2.0) EU/dL Ur Leukocyte Esterase (NEGATIVE) 12/12/18 12/12/18 12/13/18 Range/Units 16:45 19:00 06:05 WBC 6.17 (4.0-11.0) K/uL RBC 3.29 L (4.50-5.90) M/uL Hgb 11.6 L (13.0-17.0) g/dL Hct 34.6 L (38.0-50.0) % MCV 105.2 H (80.0-98.0) fL MCH 35.3 H (27.0-32.0) pg MCHC 33.5 (31.0-37.0) g/dL RDW Std Deviation 54.6 (28.0-62.0) fl RDW Coeff of Qing 14 (11.0-15.0) % Plt Count 121 L (150-400) K/uL MPV 11.30 (7.40-12.00) fL Neut % (Auto) 60.9 (48.0-80.0) % Lymph % (Auto) 22.5 (16.0-40.0) % [place] % (Auto) 11.5 (0.0-15.0) % Eos % (Auto) 4.5 (0.0-7.0) % Baso % (Auto) 0.6 (0.0-1.5) % Neut # (Auto) 3.8 (1.4-5.7) K/uL Lymph # (Auto) 1.4 (0.6-2.4) K/uL [place] # (Auto) 0.7 (0.0-0.8) K/uL Eos # (Auto) 0.3 (0.0-0.7) K/uL Baso # (Auto) 0.0 (0.0-0.1) K/uL Nucleated RBC % 0.0 /100WBC Nucleated RBCs # 0 K/uL INR Sodium (136-148) mmol/L Potassium (3.5-5.1) mmol/L Chloride (98-107) mmol/L Carbon Dioxide (21.0-32.0) mmol/L BUN (7.0-18.0) mg/dL Creatinine (0.8-1.3) mg/dL Est Cr Clr Drug Dosing mL/min Estimated GFR (MDRD) ml/min Glucose (74-106) mg/dL Calcium (8.5-10.1) mg/dL Phosphorus 3.7 (2.6-4.7) mg/dL Magnesium 1.9 (1.8-2.4) mg/dL Total Bilirubin (0.2-1.0) mg/dL AST (15-37) IU/L ALT (14-63) IU/L Alkaline Phosphatase (46-116) U/L Ammonia (19-54) ug/dL Troponin I (0.000-0.056) ng/mL B-Natriuretic Peptide (<100) PG/ML Total Protein (6.4-8.2) g/dL Albumin (3.4-5.0) g/dL Globulin (2.6-4.0) g/dL Albumin/Globulin Ratio (0.9-1.6) Amylase (25-115) U/L Lipase (73-393) U/L Urine Color YELLOW Urine Appearance CLEAR Urine pH 7.5 (5.0-8.0) Ur Specific [place] 1.010 (1.001-1.035) Urine Protein NEGATIVE (NEGATIVE) mg/dL Urine Glucose (UA) NEGATIVE (NEGATIVE) mg/dL Urine Ketones NEGATIVE (NEGATIVE) mg/dL Urine Occult Blood NEGATIVE (NEGATIVE) Urine Nitrite NEGATIVE (NEGATIVE) Urine Bilirubin SMALL H (NEGATIVE) Urine Ictotest NEGATIVE Urine Urobilinogen 2.0 H (<2.0) EU/dL Ur Leukocyte Esterase NEGATIVE (NEGATIVE) 12/13/18 12/13/18 Range/Units 06:05 06:05 WBC (4.0-11.0) K/uL RBC (4.50-5.90) M/uL Hgb (13.0-17.0) g/dL Hct (38.0-50.0) % MCV (80.0-98.0) fL MCH (27.0-32.0) pg MCHC (31.0-37.0) g/dL RDW Std Deviation (28.0-62.0) fl RDW Coeff of Qing (11.0-15.0) % Plt Count (150-400) K/uL MPV (7.40-12.00) fL Neut % (Auto) (48.0-80.0) % Lymph % (Auto) (16.0-40.0) % [place] % (Auto) (0.0-15.0) % Eos % (Auto) (0.0-7.0) % Baso % (Auto) (0.0-1.5) % Neut # (Auto) (1.4-5.7) K/uL Lymph # (Auto) (0.6-2.4) K/uL [place] # (Auto) (0.0-0.8) K/uL Eos # (Auto) (0.0-0.7) K/uL Baso # (Auto) (0.0-0.1) K/uL Nucleated RBC % /100WBC Nucleated RBCs # K/uL INR Sodium 139 (136-148) mmol/L Potassium 4.5 (3.5-5.1) mmol/L Chloride 102 (98-107) mmol/L Carbon Dioxide 23.3 (21.0-32.0) mmol/L BUN 6 L (7.0-18.0) mg/dL Creatinine 0.7 L (0.8-1.3) mg/dL Est Cr Clr Drug Dosing 130.05 mL/min Estimated GFR (MDRD) > 60.0 ml/min Glucose 87 (74-106) mg/dL Calcium 8.1 L (8.5-10.1) mg/dL Phosphorus (2.6-4.7) mg/dL Magnesium (1.8-2.4) mg/dL Total Bilirubin 5.3 H (0.2-1.0) mg/dL AST 68 H (15-37) IU/L ALT 33 (14-63) IU/L Alkaline Phosphatase 103 (46-116) U/L Ammonia 34 (19-54) ug/dL Troponin I (0.000-0.056) ng/mL B-Natriuretic Peptide (<100) PG/ML Total Protein 7.0 (6.4-8.2) g/dL Albumin 2.1 L (3.4-5.0) g/dL Globulin 4.9 H (2.6-4.0) g/dL Albumin/Globulin Ratio 0.4 L (0.9-1.6) Amylase (25-115) U/L Lipase (73-393) U/L Urine Color Urine Appearance Urine pH (5.0-8.0) Ur Specific [place] (1.001-1.035) Urine Protein (NEGATIVE) mg/dL Urine Glucose (UA) (NEGATIVE) mg/dL Urine Ketones (NEGATIVE) mg/dL Urine Occult Blood (NEGATIVE) Urine Nitrite (NEGATIVE) Urine Bilirubin (NEGATIVE) Urine Ictotest Urine Urobilinogen (<2.0) EU/dL Ur Leukocyte Esterase (NEGATIVE) Med Orders - Current: Current Medications Docusate Sodium (Colace) 100 mg PO BID PRN PRN Reason: Constipation Furosemide (Lasix) 20 mg IVPUSH DAILY [facility] Last Admin: 12/13/18 08:32 Dose: 20 mg Heparin Sodium (Porcine) (Heparin Sodium) 5,000 units SUBCUT Q8H [facility] Last Admin: 12/13/18 06:02 Dose: 5,000 units Ibuprofen (Motrin) 400 mg PO Q6H PRN PRN Reason: Pain (mild 1-3) Ondansetron HCl (Zofran Odt) 4 mg PO Q4H PRN PRN Reason: nausea, able to take PO Oxycodone HCl (Oxycodone) 5 mg PO Q4H PRN PRN Reason: Pain (moderate 4-6) Pantoprazole Sodium (Protonix Iv) 40 mg IVPUSH BID [facility] Propranolol HCl (Inderal) 20 mg PO BID [facility] Discontinued Medications Heparin Sodium (Porcine) (Heparin Sodium) 5,000 units SUBCUT Q8H [facility] Last Admin: 12/13/18 00:29 Dose: Not Given Iopamidol (Isovue Multipack-370 (76%)) 95 ml IVPUSH ONETIME ONE Stop: 12/12/18 18:49 Last Admin: 12/12/18 18:49 Dose: 95 ml Lactulose (Chronulac) 20 gm PO ONETIME ONE Stop: 12/12/18 19:14 Last Admin: 12/12/18 19:24 Dose: 20 gm Lorazepam (Ativan) 1 mg IVPUSH ONETIME ONE; Protocol Stop: 12/13/18 09:00 *Q Meaningful Use (DIS) - VTE *Q VTE Mechanical Contraindications *Q: Bilateral Lower Edema
[2018-12-13 12:27] VITALS: BP 88/50; PULSE 73
== END 2018-12-13 14:45 ==
LOC: MW.ED 16:29 → MW.MS 19:33
PROVIDERS: ADMIT Internal Medicine; ATTEND Internal Medicine
DX: R10.84 Generalized abdominal pain (principal); K70.30 Alcoholic cirrhosis of liver without ascites; R18.8 Other ascites; E80.6 Other disorders of bilirubin metabolism; K76.6 Portal hypertension; D69.6 Thrombocytopenia, unspecified; F10.10 Alcohol abuse, uncomplicated; F17.210 Nicotine dependence, cigarettes, uncomplicated; R41.82 Altered mental status, unspecified; E43 Unspecified severe protein-calorie malnutrition; R74.0 Nonspecific elevation of levels of transaminase and lactic acid dehydrogenase [LDH]; D50.9 Iron deficiency anemia, unspecified
CPT/HCPCS: 36415; 71045; 74177; 76705; 80053; 81003; 82140; 82150; 83690; 83735; 83880; 84100; 84484; 85025; 85610; 93005; 96372; 96374; 96375; 96376; 99285; A9270; C9113; G0378; J1644; J2060; Q9967

== ENCOUNTER 2019-03-30 21:10 | Inpatient (IN) | payer MEDICAID ==
[2019-03-30] MEDS ORDERED: LORazepam 2 MG/ML SDV IVPUSH ONE (21:14)
[2019-03-30] MEDS ORDERED: Sodium Chloride 0.9% 1,000 ML IV ONE (21:15)
[2019-03-30 22:22] LABS: BLOOD UREA NITROGEN,BUN 6 mg/dL (7.0-18.0); CARBON DIOXIDE,CO2 19.6 mmol/L (21.0-32.0); CHLORIDE,CL 101 mmol/L (98-107); GLUCOSE RANDOM 87 mg/dL (74-106); POTASSIUM,K 3.6 mmol/L (3.5-5.1); SODIUM,NA 137 mmol/L (136-148)
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
[2019-03-31] MEDS ORDERED: Bacitracin Oint 1 GM U/D Packet TOP ONE (00:29)
--- NOTE | 2019-03-31 00:54 | EDM.PDOC ---
ED HPI GENERAL MEDICAL PROBLEM - General Chief Complaint: Trauma Stated Complaint: ACCIDENT mid back area Pain Score (Numeric/FACES): 8 - Related Data Allergies Allergy/AdvReac Type Severity Reaction Status Date / Time No Known Allergies Allergy Verified 03/30/19 23:06 Home Meds: Home Meds . [No Known Home Meds] 09/25/18 [History] Past Medical History HEENT History: Reports: Impaired Vision, Other (See Below) Other HEENT History: uses corrective glasses Cardiovascular History: Reports: None Respiratory History: Reports: None Gastrointestinal History: Reports: Cholelithiasis Genitourinary History: Reports: Prostate Disorder, Other (See Below) Other Genitourinary History: unable to see urologist- no insurance Musculoskeletal History: Reports: None Neurological History: Reports: None Psychiatric History: Reports: Addiction, Other (See Below) Other Psychiatric History: Alcoholic. seasonal depression Endocrine/Metabolic History: Reports: None Insulin Pump Model and Vet Tech: None Hematologic History: Reports: None Immunologic History: Reports: None Oncologic (Cancer) History: Reports: None Dermatologic History: Reports: None, Other (See Below) Other Dermatologic History: claimed he has "acne all over his body" - Infectious Disease History Infectious Disease History: Reports: Chicken Pox - Past Surgical History Head Surgeries/Procedures: Reports: None HEENT Surgical History: Reports: None GI Surgical History: Reports: Cholecystectomy Male Surgical History: Reports: None Musculoskeletal Surgical History: Reports: None Social & Family History - Family History Family Medical History: Noncontributory - Tobacco Use Smoking Status *Q: Current Every Day Smoker Years of Tobacco use: 20 Packs/Tins Daily: 1 - Caffeine Use Caffeine Use: Reports: Soda - Recreational Drug Use Recreational Drug Use: No - Living Situation & Occupation Living situation: Reports: Single Occupation: Unemployed Course - Vital Signs Last Recorded V/S: Last Vital Signs Temp 36.9 C 03/30/19 21:10 Pulse 106 H 03/30/19 21:10 Resp 18 03/30/19 21:10 BP 173/98 H 03/30/19 21:10 Pulse Ox 98 03/30/19 21:10 - Orders/Labs/Meds Labs: Laboratory Tests 03/30/19 03/30/19 03/30/19 Range/Units 21:53 21:53 21:53 WBC 6.66 (4.0-11.0) K/uL RBC 4.11 L (4.50-5.90) M/uL Hgb 13.2 (13.0-17.0) g/dL Hct 38.4 (38.0-50.0) % MCV 93.4 (80.0-98.0) fL MCH 32.1 H (27.0-32.0) pg MCHC 34.4 (31.0-37.0) g/dL RDW Std Deviation 49.2 (28.0-62.0) fl RDW Coeff of Qing 15 (11.0-15.0) % Plt Count 110 L (150-400) K/uL MPV 10.80 (7.40-12.00) fL Neut % (Auto) 77.1 (48.0-80.0) % Lymph % (Auto) 11.1 L (16.0-40.0) % [place] % (Auto) 10.7 (0.0-15.0) % Eos % (Auto) 0.5 (0.0-7.0) % Baso % (Auto) 0.6 (0.0-1.5) % Neut # (Auto) 5.1 (1.4-5.7) K/uL Lymph # (Auto) 0.7 (0.6-2.4) K/uL [place] # (Auto) 0.7 (0.0-0.8) K/uL Eos # (Auto) 0.0 (0.0-0.7) K/uL Baso # (Auto) 0.0 (0.0-0.1) K/uL Nucleated RBC % 0.0 /100WBC Nucleated RBCs # 0 K/uL INR 1.31 Sodium 137 (136-148) mmol/L Potassium 3.6 (3.5-5.1) mmol/L Chloride 101 (98-107) mmol/L Carbon Dioxide 19.6 L (21.0-32.0) mmol/L BUN 6 L (7.0-18.0) mg/dL Creatinine 0.8 (0.8-1.3) mg/dL Est Cr Clr Drug Dosing TNP Estimated GFR (MDRD) > 60.0 ml/min Glucose 87 (74-106) mg/dL Calcium 8.9 (8.5-10.1) mg/dL Total Bilirubin 2.5 H (0.2-1.0) mg/dL AST 70 H (15-37) IU/L ALT 35 (14-63) IU/L Alkaline Phosphatase 116 (46-116) U/L Troponin I < 0.050 (0.000-0.056) ng/mL Total Protein 8.3 H (6.4-8.2) g/dL Albumin 3.4 (3.4-5.0) g/dL Globulin 4.9 H (2.6-4.0) g/dL Albumin/Globulin Ratio 0.7 L (0.9-1.6) Meds: Medications Discontinued Medications Generic Name Dose Route Start Last Admin Trade Name Freq PRN Reason Stop Dose Admin Sodium Chloride 1,000 mls @ 999 mls/hr 03/30/19 21:15 03/30/19 21:48 Normal Saline IV 03/30/19 22:15 999 mls/hr BOLUS ONE Administration Lorazepam 2 mg 03/30/19 21:14 03/30/19 21:49 Ativan IVPUSH 03/30/19 21:15 2 mg ONETIME ONE Administration Departure - Discharge Information Sepsis Event Note - Evaluation Sepsis Screening Result: No Definite Risk - Focused Exam Vital Signs: Vital Signs Temp Pulse Resp BP Pulse Ox 03/30/19 21:10 36.9 C 106 H 18 173/98 H 98 Date Exam was Performed: 03/31/19 Time Exam was Performed: 00:05
[2019-03-31] MEDS: Folic Acid 1 MG Tab PO SCH ×2 (01:49→09:07)
[2019-03-31] MEDS: Thiamine 100 MG Tab PO SCH ×2 (01:49→09:06)
[2019-03-31] MEDS ORDERED: Magnesium Sulfate/Water 2 GM in Premix Bag 1 BAG IV ONE (02:16)
[2019-03-31] MEDS: LORazepam 2 MG/ML SDV IVPUSH PRN ×2 (05:44→19:15)
[2019-03-31 07:06] LABS: BLOOD UREA NITROGEN,BUN 7 mg/dL (7.0-18.0); CARBON DIOXIDE,CO2 24.1 mmol/L (21.0-32.0); CHLORIDE,CL 100 mmol/L (98-107); GLUCOSE RANDOM 99 mg/dL (74-106); POTASSIUM,K 3.3 mmol/L (3.5-5.1); SODIUM,NA 135 mmol/L (136-148)
[2019-03-31] MEDS ORDERED: Potassium Chloride 20 MEQ Tab.ER PO ONE (08:02)
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
[2019-04-01 06:35] LABS: BLOOD UREA NITROGEN,BUN 12 mg/dL (7.0-18.0); CARBON DIOXIDE,CO2 23.7 mmol/L (21.0-32.0); CHLORIDE,CL 104 mmol/L (98-107); GLUCOSE RANDOM 113 mg/dL (74-106); POTASSIUM,K 3.8 mmol/L (3.5-5.1); SODIUM,NA 138 mmol/L (136-148)
[2019-04-01] MEDS: Folic Acid 1 MG Tab PO SCH (09:04)
[2019-04-01] MEDS: Thiamine 100 MG Tab PO SCH (09:04)
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
[2019-04-02 06:15] LABS: BLOOD UREA NITROGEN,BUN 15 mg/dL (7.0-18.0); CHLORIDE,CL 101 mmol/L (98-107); GLUCOSE RANDOM 93 mg/dL (74-106); POTASSIUM,K 4.2 mmol/L (3.5-5.1); SODIUM,NA 133 mmol/L (136-148)
[2019-04-02] MEDS: Folic Acid 1 MG Tab PO SCH (08:13)
[2019-04-02] MEDS: Thiamine 100 MG Tab PO SCH (08:13)
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
[2019-04-02 12:22] VITALS: BP 97/67; PULSE 84
== END 2019-04-02 14:15 | disposition home or self-care (01) | DRG 897 ==
LOC: MW.ED 21:10 → MW.MS 03-31 00:31 → OBSVTOIN 03-31 12:50 → MW.MS 03-31 22:16
PROVIDERS: ADMIT Internal Medicine; ATTEND Internal Medicine
DX: F10.231 Alcohol dependence with withdrawal delirium (principal); M48.56XA Collapsed vertebra, not elsewhere classified, lumbar region, initial encounter for fracture; M48.54XA Collapsed vertebra, not elsewhere classified, thoracic region, initial encounter for fracture; R44.3 Hallucinations, unspecified; R56.9 Unspecified convulsions; H54.7 Unspecified visual loss; F32.9 Major depressive disorder, single episode, unspecified; F17.210 Nicotine dependence, cigarettes, uncomplicated; E87.6 Hypokalemia; S00.91XA Abrasion of unspecified part of head, initial encounter; G89.29 Other chronic pain; M54.9 Dorsalgia, unspecified; R74.0 Nonspecific elevation of levels of transaminase and lactic acid dehydrogenase [LDH]; Z79.899 Other long term (current) drug therapy; Z90.49 Acquired absence of other specified parts of digestive tract; V49.9XXA Car occupant (driver) (passenger) injured in unspecified traffic accident, initial encounter; W22.10XA Striking against or struck by unspecified automobile airbag, initial encounter
CPT/HCPCS: 36415; 70450; 70450-26; 71250; 71250-26; 72125; 72125-26; 72128; 72128-26; 72131; 72131-26; 80048; 80053; 83735; 84100; 84484; 85025; 85610; 93005; 96361; 96374; 99285-25; A9270-GY; J2060; J3475; J7030

== ENCOUNTER 2019-06-03 18:45 | Observation (INO) | payer MEDICAID ==
[2019-06-03] MEDS ORDERED: Sodium Chloride 0.9% 2.5 ML Syringe FLUSH PRN (18:52)
[2019-06-03] MEDS ORDERED: Sodium Chloride 0.9% 1,000 ML IV ONE (18:52)
[2019-06-03] MEDS ORDERED: Sodium Chloride 0.9% 10 ML Syringe FLUSH PRN (18:52)
[2019-06-03] MEDS ORDERED: LORazepam 2 MG/ML SDV IVPUSH ONE ×2 (18:54→20:17)
--- NOTE | 2019-06-03 19:08 | EDM.PDOC ---
<MarcusDarrel Hieu - Last Filed: 06/03/19 19:03> ED HPI GENERAL MEDICAL PROBLEM - General Chief Complaint: Cardiovascular Problem Stated Complaint: SICK Time Seen by Provider: 06/03/19 19:01 Source of Information: Reports: Patient History Limitations: Reports: No Limitations - History of Present Illness INITIAL COMMENTS - FREE TEXT/NARRATIVE: Pt with reported alcoholism presents to the ed with his heart racing. Pt reports feeling that he is having a pain attack. Pt reports that his last drink was tuesday night and he was trying to quit again. Pt reports nausea and anxiety. He also reports marijuana use this morning. Pt reports prior withdrawal with seizures in the past. - Related Data Allergies Allergy/AdvReac Type Severity Reaction Status Date / Time No Known Allergies Allergy Verified 06/03/19 18:52 Home Meds: Home Meds Folic Acid 1 mg PO DAILY tablet 04/02/19 [Rx] Thiamine [Vitamin B-1] 100 mg PO DAILY tablet 04/02/19 [Rx] Past Medical History HEENT History: Reports: Impaired Vision, Other (See Below) Other HEENT History: uses corrective glasses Cardiovascular History: Reports: None Respiratory History: Reports: None Gastrointestinal History: Reports: Cholelithiasis Genitourinary History: Reports: Prostate Disorder, Other (See Below) Other Genitourinary History: unable to see urologist- no insurance Musculoskeletal History: Reports: None Neurological History: Reports: None Psychiatric History: Reports: Addiction, Other (See Below) Other Psychiatric History: Alcoholic. seasonal depression Endocrine/Metabolic History: Reports: None Insulin Pump Model and Hearing Officer: None Hematologic History: Reports: None Immunologic History: Reports: None Oncologic (Cancer) History: Reports: None Dermatologic History: Reports: None, Other (See Below) Other Dermatologic History: claimed he has "acne all over his body" - Infectious Disease History Infectious Disease History: Reports: Chicken Pox - Past Surgical History Head Surgeries/Procedures: Reports: None HEENT Surgical History: Reports: None GI Surgical History: Reports: Cholecystectomy Male Surgical History: Reports: None Musculoskeletal Surgical History: Reports: None Social & Family History - Family History Family Medical History: Noncontributory - Tobacco Use Smoking Status *Q: Current Every Day Smoker Years of Tobacco use: 40 Packs/Tins Daily: 1 - Caffeine Use Caffeine Use: Reports: Coffee - Recreational Drug Use Recreational Drug Use: Yes Recreational Drug Type: Reports: Marijuana/Hashish - Living Situation & Occupation Living situation: Reports: Single Occupation: Unemployed ED ROS GENERAL - Review of Systems Review Of Systems: See Below Constitutional: Reports: Decreased Appetite Cardiovascular: Reports: Palpitations. Denies: Chest Pain GI/Abdominal: Reports: Nausea Skin: Reports: No Symptoms Psychiatric: Reports: Anxiety ED EXAM, GENERAL - Physical Exam Exam: See Below Exam Limited By: No Limitations General Appearance: Alert, Anxious Head: Atraumatic, Normocephalic Respiratory/Chest: No Respiratory Distress, Lungs Clear, Normal Breath Sounds Cardiovascular: Regular Rate, Rhythm (Tachycardic), No JVD, No Murmur, Tachycardia GI/Abdominal: Soft, Non-Tender, No Distention Back Exam: Normal Inspection Extremities: Normal Inspection Neurological: Alert, Oriented Skin Exam: Dry EKG INTERPRETATION Rhythm: Other (Sinus tachcardia) ST-T: Other (no STEMI) Course - Vital Signs Last Recorded V/S: Last Vital Signs Temp 36.6 C 06/03/19 20:11 Pulse 107 H 06/03/19 20:11 Resp 14 06/03/19 20:11 BP 146/83 H 06/03/19 20:11 Pulse Ox 98 06/03/19 20:11 - Orders/Labs/Meds Orders: Active Orders 24 hr Category Date Time Status EKG Documentation Completion [RC] STAT Care 06/03/19 18:53 Active Magnesium Sulfate [Magnesium Sulfate 50%] Med 06/03/19 20:18 Stat 1 gm IV ONETIME STA Sodium Chloride 0.9% [Saline Flush] Med 06/03/19 18:52 Active 10 ml FLUSH ASDIRECTED PRN Sodium Chloride 0.9% [Saline Flush] Med 06/03/19 18:52 Active 2.5 ml FLUSH ASDIRECTED PRN Saline Lock Insert [OM.PC] Stat Oth 06/03/19 18:52 Ordered Medication Orders Magnesium Sulfate (Magnesium Sulfate 50%) 1 gm IV ONETIME STA Stop: 06/03/19 20:19 Sodium Chloride (Saline Flush) 10 ml FLUSH ASDIRECTED PRN PRN Reason: Keep Vein Open Last Admin: 06/03/19 18:56 Dose: 10 ml Sodium Chloride (Saline Flush) 2.5 ml FLUSH ASDIRECTED PRN PRN Reason: Keep Vein Open Last Admin: 06/03/19 18:56 Dose: 2.5 ml Labs: Laboratory Tests 06/03/19 06/03/19 06/03/19 Range/Units 18:50 18:50 18:50 WBC 9.95 (4.0-11.0) K/uL RBC 4.69 (4.50-5.90) M/uL Hgb 14.8 (13.0-17.0) g/dL Hct 43.0 (38.0-50.0) % MCV 91.7 (80.0-98.0) fL MCH 31.6 (27.0-32.0) pg MCHC 34.4 (31.0-37.0) g/dL RDW Std Deviation 48.7 (28.0-62.0) fl RDW Coeff of Qing 15 (11.0-15.0) % Plt Count 165 (150-400) K/uL MPV 11.30 (7.40-12.00) fL Neut % (Auto) 62.8 (48.0-80.0) % Lymph % (Auto) 20.7 (16.0-40.0) % [place] % (Auto) 14.8 (0.0-15.0) % Eos % (Auto) 1.2 (0.0-7.0) % Baso % (Auto) 0.5 (0.0-1.5) % Neut # (Auto) 6.3 H (1.4-5.7) K/uL Lymph # (Auto) 2.1 (0.6-2.4) K/uL [place] # (Auto) 1.5 H (0.0-0.8) K/uL Eos # (Auto) 0.1 (0.0-0.7) K/uL Baso # (Auto) 0.1 (0.0-0.1) K/uL Nucleated RBC % 0.0 /100WBC Nucleated RBCs # 0 K/uL Sodium 138 (136-148) mmol/L Potassium 3.4 L (3.5-5.1) mmol/L Chloride 98 (98-107) mmol/L Carbon Dioxide 24.4 (21.0-32.0) mmol/L BUN 9 (7.0-18.0) mg/dL Creatinine 1.0 (0.8-1.3) mg/dL Est Cr Clr Drug Dosing 85.68 mL/min Estimated GFR (MDRD) > 60.0 ml/min Glucose 169 H (74-106) mg/dL Calcium 9.7 (8.5-10.1) mg/dL Magnesium (1.8-2.4) mg/dL Total Bilirubin 1.4 H (0.2-1.0) mg/dL AST 55 H (15-37) IU/L ALT 36 (14-63) IU/L Alkaline Phosphatase 118 H (46-116) U/L Troponin I < 0.050 (0.000-0.056) ng/mL Total Protein 8.4 H (6.4-8.2) g/dL Albumin 3.9 (3.4-5.0) g/dL Globulin 4.5 H (2.6-4.0) g/dL Albumin/Globulin Ratio 0.9 (0.9-1.6) Lipase 188 (73-393) U/L Urine Opiates Screen (NEGATIVE) Ur Oxycodone Screen (NEGATIVE) Urine Methadone Screen (NEGATIVE) Ur Barbiturates Screen (NEGATIVE) Ur Phencyclidine Scrn (NEGATIVE) Ur Amphetamine Screen (NEGATIVE) U Methamphetamines Scrn (NEGATIVE) U Benzodiazepines Scrn (NEGATIVE) U Cocaine Metab Screen (NEGATIVE) U Marijuana (THC) Screen (NEGATIVE) Ethyl Alcohol <3 mg/dL 06/03/19 06/03/19 Range/Units 18:59 19:20 WBC (4.0-11.0) K/uL RBC (4.50-5.90) M/uL Hgb (13.0-17.0) g/dL Hct (38.0-50.0) % MCV (80.0-98.0) fL MCH (27.0-32.0) pg MCHC (31.0-37.0) g/dL RDW Std Deviation (28.0-62.0) fl RDW Coeff of Qing (11.0-15.0) % Plt Count (150-400) K/uL MPV (7.40-12.00) fL Neut % (Auto) (48.0-80.0) % Lymph % (Auto) (16.0-40.0) % [place] % (Auto) (0.0-15.0) % Eos % (Auto) (0.0-7.0) % Baso % (Auto) (0.0-1.5) % Neut # (Auto) (1.4-5.7) K/uL Lymph # (Auto) (0.6-2.4) K/uL [place] # (Auto) (0.0-0.8) K/uL Eos # (Auto) (0.0-0.7) K/uL Baso # (Auto) (0.0-0.1) K/uL Nucleated RBC % /100WBC Nucleated RBCs # K/uL Sodium (136-148) mmol/L Potassium (3.5-5.1) mmol/L Chloride (98-107) mmol/L Carbon Dioxide (21.0-32.0) mmol/L BUN (7.0-18.0) mg/dL Creatinine (0.8-1.3) mg/dL Est Cr Clr Drug Dosing mL/min Estimated GFR (MDRD) ml/min Glucose (74-106) mg/dL Calcium (8.5-10.1) mg/dL Magnesium 1.7 L (1.8-2.4) mg/dL Total Bilirubin (0.2-1.0) mg/dL AST (15-37) IU/L ALT (14-63) IU/L Alkaline Phosphatase (46-116) U/L Troponin I (0.000-0.056) ng/mL Total Protein (6.4-8.2) g/dL Albumin (3.4-5.0) g/dL Globulin (2.6-4.0) g/dL Albumin/Globulin Ratio (0.9-1.6) Lipase (73-393) U/L Urine Opiates Screen NEGATIVE (NEGATIVE) Ur Oxycodone Screen NEGATIVE (NEGATIVE) Urine Methadone Screen NEGATIVE (NEGATIVE) Ur Barbiturates Screen NEGATIVE (NEGATIVE) Ur Phencyclidine Scrn NEGATIVE (NEGATIVE) Ur Amphetamine Screen NEGATIVE (NEGATIVE) U Methamphetamines Scrn NEGATIVE (NEGATIVE) U Benzodiazepines Scrn NEGATIVE (NEGATIVE) U Cocaine Metab Screen NEGATIVE (NEGATIVE) U Marijuana (THC) Screen NEGATIVE (NEGATIVE) Ethyl Alcohol mg/dL Meds: Medications Generic Name Dose Route Start Last Admin Trade Name Freq PRN Reason Stop Dose Admin Magnesium Sulfate 1 gm 06/03/19 20:18 Magnesium Sulfate 50% IV 06/03/19 20:19 ONETIME STA Sodium Chloride 10 ml 06/03/19 18:52 06/03/19 18:56 Saline Flush FLUSH 10 ml ASDIRECTED PRN Administration Keep Vein Open Sodium Chloride 2.5 ml 06/03/19 18:52 06/03/19 18:56 Saline Flush FLUSH 2.5 ml ASDIRECTED PRN Administration Keep Vein Open Discontinued Medications Generic Name Dose Route Start Last Admin Trade Name Grabiel PRN Reason Stop Dose Admin Sodium Chloride 1,000 mls @ 999 mls/hr 06/03/19 18:52 06/03/19 18:56 Normal Saline IV 06/03/19 19:52 999 mls/hr BOLUS ONE Administration Lorazepam 1 mg 06/03/19 18:54 06/03/19 19:08 Ativan IVPUSH 06/03/19 18:55 1 mg ONETIME ONE Administration Lorazepam 1 mg 06/03/19 20:17 Ativan IVPUSH 06/03/19 20:18 ONETIME ONE Departure - Departure Disposition: Admitted As Inpatient 64 Clinical Impression: Alcohol withdrawal Qualifiers: Complication of substance-induced condition: uncomplicated Qualified Code(s): F10.230 - Alcohol dependence with withdrawal, uncomplicated Referrals: PCP,Unobtain [Primary Care Provider] - Forms: ED Department Discharge Sepsis Event Note - Evaluation Sepsis Screening Result: No Definite Risk - Focused Exam Vital Signs: Vital Signs Temp Pulse Resp BP Pulse Ox 06/03/19 20:11 36.6 C 107 H 14 146/83 H 98 06/03/19 18:51 36.3 C 145 H 16 138/86 98 Date Exam was Performed: 06/03/19 Time Exam was Performed: 19:03 - My Orders Last 24 Hours: My Active Orders 06/03/19 20:18 Magnesium Sulfate [Magnesium Sulfate 50%] 1 gm IV ONETIME STA - Assessment/Plan Last 24 Hours: My Active Orders 06/03/19 20:18 Magnesium Sulfate [Magnesium Sulfate 50%] 1 gm IV ONETIME STA <Kedar Tapia - Last Filed: 06/03/19 20:25> ED HPI GENERAL MEDICAL PROBLEM - History of Present Illness INITIAL COMMENTS - FREE TEXT/NARRATIVE: I assumed care from Dr. Velazquez. Patient's labs have come back and they show no serum alcohol and slightly low magnesium patient is still lightheaded and tachycardic. CBC chemistries are all at the patient's baseline serum alcohol is negative. Patient's heart rate is 101 at this time blood pressure stable. I believe the patient is withdrawing and will admit him to the hospitalist service for medical detoxification Case discussed with Dr. Villatoro who accepts this patient to his service Departure - Departure Time of Disposition: 20:24 Condition: Good Sepsis Event Note - Focused Exam Date Exam was Performed: 06/03/19 Time Exam was Performed: 20:21
--- NOTE | 2019-06-03 19:16 | CR ---
Chest: Frontal view of the chest was obtained. Comparison: Prior chest x-ray of 12/12/18. Small nodule is noted within the right mid to lower lung measuring approximately 6 mm. This is not identified on prior study with certainty. There is a nodule being seen within the left midlung which is stable from prior exam. Lungs otherwise are clear. Slight tortuosity of the thoracic aorta is noted. Bony structures are grossly intact. Impression: 1. Nodule within the right mid chest which is an interval change from prior chest x-ray. Noncontrast chest CT recommended to further evaluate. 2. Nodule within the left mid chest which is stable from prior chest x-ray and most likely represents a granuloma. 3. Nothing acute is otherwise seen on frontal chest x-ray. Diagnostic code #9 This report was dictated in [place] Standard Time
[2019-06-03 19:27] LABS: BLOOD UREA NITROGEN,BUN 9 mg/dL (7.0-18.0); CARBON DIOXIDE,CO2 24.4 mmol/L (21.0-32.0); CHLORIDE,CL 98 mmol/L (98-107); GLUCOSE RANDOM 169 mg/dL (74-106); LIPASE 188 U/L (73-393); POTASSIUM,K 3.4 mmol/L (3.5-5.1); SODIUM,NA 138 mmol/L (136-148)
[2019-06-03] MEDS ORDERED: Magnesium Sulfate (4.06 MEQ/ML) 5 GM/10 ML SDV IV STA (20:18)
[2019-06-03] MEDS ORDERED: Magnesium Sulfate/Water 2 GM in Premix Bag 1 BAG IV ONE (20:45)
[2019-06-03] MEDS ORDERED: Potassium Chloride 20 MEQ Tab.ER PO ONE (22:38)
[2019-06-03] MEDS ORDERED: LORazepam 2 MG/ML SDV IVPUSH PRN (22:39)
[2019-06-03] MEDS: Folic Acid 50 MG/10 ML MDV SUBCUT SCH (23:21)
[2019-06-03] MEDS ORDERED: Ondansetron 4 MG Tab.DIS PO PRN (23:47)
[2019-06-04] MEDS: Thiamine 100 MG in Sodium Chloride 0.9% 100 ML IV SCH ×2 (00:02→09:20)
[2019-06-04] MEDS: Sodium Chloride 0.9% 1,000 ML IV SCH ×2 (00:08→09:21)
--- NOTE | 2019-06-04 00:57 | PCM.HP.2 ---
H&P History of Present Illness - General Date of Service: 06/04/19 Admit Problem/Dx: Admission Diagnosis/Problem Admission Diagnosis/Problem Alcohol withdrawal syndrome - History of Present Illness Initial Comments - Free Text/Narative: 53 yo male with pmh of alcohol abuse. He was last admitted for alcohol withdrawal two months ago when he was experiencing hallucinations and siezures. Patient reports he has been drinking about a liter every other day. He presented to the ED with complaints of palpitations and tremors. His last drink was two days ago. - Related Data Allergies/Adverse Reactions: Allergies Allergy/AdvReac Type Severity Reaction Status Date / Time No Known Allergies Allergy Verified 06/03/19 21:39 Home Medications: Home Meds Folic Acid 1 mg PO DAILY tablet 04/02/19 [Rx] Thiamine [Vitamin B-1] 100 mg PO DAILY tablet 04/02/19 [Rx] Calcium Carbonate [Calcium] 500 mg PO BID 06/03/19 [History] Past Medical History HEENT History: Reports: Impaired Vision, Other (See Below) Other HEENT History: uses corrective glasses Cardiovascular History: Reports: None Respiratory History: Reports: None Gastrointestinal History: Reports: Cholelithiasis, Cirrhosis, Other (See Below) Other Gastrointestinal History: Had Paracentesis done twice November or December 2018 Genitourinary History: Reports: Prostate Disorder, Other (See Below) Other Genitourinary History: unable to see urologist- no insurance. Difficulty emptying his bladder. Stated "it takes forever to empty it." Musculoskeletal History: Reports: None Neurological History: Reports: None Psychiatric History: Reports: Addiction, Depression, Other (See Below) Other Psychiatric History: Alcoholic. seasonal depression Endocrine/Metabolic History: Reports: None Insulin Pump Model and Axle Inspector: None Hematologic History: Reports: None Immunologic History: Reports: None Oncologic (Cancer) History: Reports: None Dermatologic History: Reports: Other (See Below) Other Dermatologic History: claimed he has "acne all over his body" - Infectious Disease History Infectious Disease History: Reports: Chicken Pox - Past Surgical History Head Surgeries/Procedures: Reports: None HEENT Surgical History: Reports: None GI Surgical History: Reports: Cholecystectomy Male Surgical History: Reports: None Musculoskeletal Surgical History: Reports: None Social & Family History - Family History Family Medical History: Noncontributory - Tobacco Use Smoking Status *Q: Current Every Day Smoker Years of Tobacco use: 35 Packs/Tins Daily: 1 - Caffeine Use Caffeine Use: Reports: Coffee Other Caffeine Use: 1 cup coffee - Alcohol Use Days Per Week of Alcohol Use: 7 Number of Drinks Per Day: 20 Total Drinks Per Week: 140 Date of Last Drink: 06/01/19 Time of Last Drink: 23:00 - Recreational Drug Use Recreational Drug Use: Yes Drug Use in Last 12 Months: Yes Recreational Drug Type: Reports: Marijuana/Hashish Recreational Drug Use Frequency: Rarely - Living Situation & Occupation Living situation: Reports: Single Occupation: Unemployed H&P Review of Systems - Review of Systems: Review Of Systems: Comprehensive ROS is negative, except as noted in HPI. Exam - Exam Exam: See Below - Vital Signs Vital Signs: Last Vital Signs Temp 36.4 C 06/03/19 23:59 Pulse 79 06/03/19 23:59 Resp 18 06/03/19 23:59 BP 134/72 06/03/19 23:59 Pulse Ox 96 06/03/19 23:59 Weight: 73.8 kg - Exam General: Alert, Oriented HEENT: Mucosa Moist & [place] Neck: Supple Lungs: Clear to Auscultation, Normal Respiratory Effort Cardiovascular: Regular Rate, Regular Rhythm GI/Abdominal Exam: Normal Bowel Sounds, Soft, Non-Tender Extremities: Non-Tender, No Pedal Edema Skin: Warm, Dry, Intact - Patient Data Lab Results Last 24 hrs: Laboratory Results - last 24 hr 06/03/19 06/03/19 06/03/19 Range/Units 18:50 18:50 18:50 WBC 9.95 (4.0-11.0) K/uL RBC 4.69 (4.50-5.90) M/uL Hgb 14.8 (13.0-17.0) g/dL Hct 43.0 (38.0-50.0) % MCV 91.7 (80.0-98.0) fL MCH 31.6 (27.0-32.0) pg MCHC 34.4 (31.0-37.0) g/dL RDW Std Deviation 48.7 (28.0-62.0) fl RDW Coeff of Qing 15 (11.0-15.0) % Plt Count 165 (150-400) K/uL MPV 11.30 (7.40-12.00) fL Neut % (Auto) 62.8 (48.0-80.0) % Lymph % (Auto) 20.7 (16.0-40.0) % [place] % (Auto) 14.8 (0.0-15.0) % Eos % (Auto) 1.2 (0.0-7.0) % Baso % (Auto) 0.5 (0.0-1.5) % Neut # (Auto) 6.3 H (1.4-5.7) K/uL Lymph # (Auto) 2.1 (0.6-2.4) K/uL [place] # (Auto) 1.5 H (0.0-0.8) K/uL Eos # (Auto) 0.1 (0.0-0.7) K/uL Baso # (Auto) 0.1 (0.0-0.1) K/uL Nucleated RBC % 0.0 /100WBC Nucleated RBCs # 0 K/uL Sodium 138 (136-148) mmol/L Potassium 3.4 L (3.5-5.1) mmol/L Chloride 98 (98-107) mmol/L Carbon Dioxide 24.4 (21.0-32.0) mmol/L BUN 9 (7.0-18.0) mg/dL Creatinine 1.0 (0.8-1.3) mg/dL Est Cr Clr Drug Dosing 85.68 mL/min Estimated GFR (MDRD) > 60.0 ml/min Glucose 169 H (74-106) mg/dL Calcium 9.7 (8.5-10.1) mg/dL Magnesium (1.8-2.4) mg/dL Total Bilirubin 1.4 H (0.2-1.0) mg/dL AST 55 H (15-37) IU/L ALT 36 (14-63) IU/L Alkaline Phosphatase 118 H (46-116) U/L Troponin I < 0.050 (0.000-0.056) ng/mL Total Protein 8.4 H (6.4-8.2) g/dL Albumin 3.9 (3.4-5.0) g/dL Globulin 4.5 H (2.6-4.0) g/dL Albumin/Globulin Ratio 0.9 (0.9-1.6) Lipase 188 (73-393) U/L Urine Opiates Screen (NEGATIVE) Ur Oxycodone Screen (NEGATIVE) Urine Methadone Screen (NEGATIVE) Ur Barbiturates Screen (NEGATIVE) Ur Phencyclidine Scrn (NEGATIVE) Ur Amphetamine Screen (NEGATIVE) U Methamphetamines Scrn (NEGATIVE) U Benzodiazepines Scrn (NEGATIVE) U Cocaine Metab Screen (NEGATIVE) U Marijuana (THC) Screen (NEGATIVE) Ethyl Alcohol <3 mg/dL 06/03/19 06/03/19 Range/Units 18:59 19:20 WBC (4.0-11.0) K/uL RBC (4.50-5.90) M/uL Hgb (13.0-17.0) g/dL Hct (38.0-50.0) % MCV (80.0-98.0) fL MCH (27.0-32.0) pg MCHC (31.0-37.0) g/dL RDW Std Deviation (28.0-62.0) fl RDW Coeff of Qing (11.0-15.0) % Plt Count (150-400) K/uL MPV (7.40-12.00) fL Neut % (Auto) (48.0-80.0) % Lymph % (Auto) (16.0-40.0) % [place] % (Auto) (0.0-15.0) % Eos % (Auto) (0.0-7.0) % Baso % (Auto) (0.0-1.5) % Neut # (Auto) (1.4-5.7) K/uL Lymph # (Auto) (0.6-2.4) K/uL [place] # (Auto) (0.0-0.8) K/uL Eos # (Auto) (0.0-0.7) K/uL Baso # (Auto) (0.0-0.1) K/uL Nucleated RBC % /100WBC Nucleated RBCs # K/uL Sodium (136-148) mmol/L Potassium (3.5-5.1) mmol/L Chloride (98-107) mmol/L Carbon Dioxide (21.0-32.0) mmol/L BUN (7.0-18.0) mg/dL Creatinine (0.8-1.3) mg/dL Est Cr Clr Drug Dosing mL/min Estimated GFR (MDRD) ml/min Glucose (74-106) mg/dL Calcium (8.5-10.1) mg/dL Magnesium 1.7 L (1.8-2.4) mg/dL Total Bilirubin (0.2-1.0) mg/dL AST (15-37) IU/L ALT (14-63) IU/L Alkaline Phosphatase (46-116) U/L Troponin I (0.000-0.056) ng/mL Total Protein (6.4-8.2) g/dL Albumin (3.4-5.0) g/dL Globulin (2.6-4.0) g/dL Albumin/Globulin Ratio (0.9-1.6) Lipase (73-393) U/L Urine Opiates Screen NEGATIVE (NEGATIVE) Ur Oxycodone Screen NEGATIVE (NEGATIVE) Urine Methadone Screen NEGATIVE (NEGATIVE) Ur Barbiturates Screen NEGATIVE (NEGATIVE) Ur Phencyclidine Scrn NEGATIVE (NEGATIVE) Ur Amphetamine Screen NEGATIVE (NEGATIVE) U Methamphetamines Scrn NEGATIVE (NEGATIVE) U Benzodiazepines Scrn NEGATIVE (NEGATIVE) U Cocaine Metab Screen NEGATIVE (NEGATIVE) U Marijuana (THC) Screen NEGATIVE (NEGATIVE) Ethyl Alcohol mg/dL Result Diagrams: 06/04/19 05:05 06/04/19 05:05 Sepsis Event Note - Evaluation Sepsis Screening Result: No Definite Risk - Focused Exam Vital Signs: Vital Signs Temp Pulse Resp BP Pulse Ox 06/03/19 23:59 36.4 C 79 18 134/72 96 06/03/19 21:37 36.7 C 94 16 148/78 H 97 06/03/19 20:11 36.6 C 107 H 14 146/83 H 98 06/03/19 18:51 36.3 C 145 H 16 138/86 98 Date Exam was Performed: 06/07/19 Time Exam was Performed: 15:50 Problem List Initiated/Reviewed/Updated: Yes Orders Last 24hrs: Active Orders 24 hr Category Date Time Status Admission Diagnosis [ADT] Stat ADT 06/03/19 20:26 Ordered Admission Status [Patient Status] [ADT] Stat ADT 06/03/19 20:28 Active Antiembolic Devices [RC] PER UNIT ROUTINE Care 06/03/19 23:48 Active Oxygen Therapy [RC] PRN Care 06/03/19 23:48 Active Up ad Allyssa [RC] ASDIRECTED Care 06/03/19 23:47 Active VTE/DVT Education [RC] PER UNIT ROUTINE Care 06/03/19 23:48 Active Vital Signs [RC] Q4H Care 06/03/19 23:48 Active Regular Diet [DIET] Diet 06/03/19 Breakfast Active CBC WITH AUTO DIFF [HEME] AM Lab 06/04/19 05:11 Ordered COMPREHENSIVE METABOLIC PN,CMP [CHEM] AM Lab 06/04/19 05:11 Ordered Folic Acid Med 06/03/19 22:45 Active 1 mg SUBCUT DAILY LORazepam [Ativan] Med 06/03/19 22:39 Active See Protocol IVPUSH Q4H PRN Ondansetron [Zofran ODT] Med 06/03/19 23:47 Active 4 mg PO Q4H PRN Sodium Chloride 0.9% [Normal Saline] 1,000 ml Med 06/03/19 23:45 Active IV ASDIRECTED Sodium Chloride 0.9% [Saline Flush] Med 06/03/19 18:52 Active 10 ml FLUSH ASDIRECTED PRN Sodium Chloride 0.9% [Saline Flush] Med 06/03/19 18:52 Active 2.5 ml FLUSH ASDIRECTED PRN Thiamine [Vitamin B-1] 100 mg Med 06/03/19 22:45 Active Sodium Chloride 0.9% [Normal Saline] 100 ml IV DAILY Saline Lock Insert [OM.PC] Stat Oth 06/03/19 18:52 Ordered Sequential Compression Device [OM.PC] Per Unit Routine Oth 06/03/19 23:48 Ordered Resuscitation Status Routine Resus Stat 06/03/19 23:47 Ordered Medication Orders Folic Acid (Folic Acid) 1 mg SUBCUT DAILY [facility] Last Admin: 06/03/19 23:21 Dose: 1 mg Thiamine HCl 100 mg/ Sodium (Chloride) 101 mls @ 202 mls/hr IV DAILY [facility] Last Admin: 06/04/19 00:02 Dose: 202 mls/hr Sodium Chloride (Normal Saline) 1,000 mls @ 125 mls/hr IV ASDIRECTED [facility] Last Admin: 06/04/19 00:08 Dose: 125 mls/hr Lorazepam (Ativan) 0 mg IVPUSH Q4H PRN; Protocol PRN Reason: [email or web address] Ondansetron HCl (Zofran Odt) 4 mg PO Q4H PRN PRN Reason: nausea, able to take PO Sodium Chloride (Saline Flush) 10 ml FLUSH ASDIRECTED PRN PRN Reason: Keep Vein Open Last Admin: 06/03/19 18:56 Dose: 10 ml Sodium Chloride (Saline Flush) 2.5 ml FLUSH ASDIRECTED PRN PRN Reason: Keep Vein Open Last Admin: 06/03/19 18:56 Dose: 2.5 ml Assessment/Plan Comment:: 53 yo male admitted for alchol withdrawal. We will place on CIWAA protocol with prn ativan, thiamin and folic acid.
[2019-06-04 06:06] LABS: BLOOD UREA NITROGEN,BUN 8 mg/dL (7.0-18.0); CARBON DIOXIDE,CO2 23.8 mmol/L (21.0-32.0); CHLORIDE,CL 105 mmol/L (98-107); GLUCOSE RANDOM 91 mg/dL (74-106); POTASSIUM,K 3.7 mmol/L (3.5-5.1); SODIUM,NA 138 mmol/L (136-148)
[2019-06-04] MEDS: Folic Acid 50 MG/10 ML MDV SUBCUT SCH (09:24)
[2019-06-04 10:28] VITALS: BP 117/78; PULSE 76
--- NOTE | 2019-06-04 11:08 | PCM.DCSUM1 ---
Discharge Summary - Hospital Course Brief History: 53 yo male with pmh of alcohol abuse. He was last admitted for alcohol withdrawal two months ago when he was experiencing hallucinations and siezures. Patient reports he has been drinking about a liter every other day. He presented to the ED with complaints of palpitations and tremors. His last drink was two days ago. Diagnosis: Stroke: No - Discharge Data Discharge Date: 06/04/19 Discharge Disposition: Home, Self-Care 01 Condition: Good - Referral to Home Health Primary Care Physician: PCP Unobtainable - Patient Instructions Diet: Regular Diet as Tolerated Activity: As Tolerated, No Strenuous Activities Driving: Do Not Drive Showering/Bathing: May Shower Notify Provider of: Fever, Increased Pain, Swelling and Redness, Drainage, Nausea and/or Vomiting Other/Special Instructions: Continue Sobriety. Follow with AA meetings - Discharge Plan *PRESCRIPTION DRUG MONITORING PROGRAM REVIEWED*: Not Applicable *COPY OF PRESCRIPTION DRUG MONITORING REPORT IN PATIENT MIKE: Not Applicable Home Medications: Home Meds Folic Acid 1 mg PO DAILY tablet 04/02/19 [Rx] Thiamine [Vitamin B-1] 100 mg PO DAILY tablet 04/02/19 [Rx] Calcium Carbonate [Calcium] 500 mg PO BID 06/03/19 [History] Oxygen Therapy Mode: Room Air Patient Handouts: Alcohol Withdrawal Syndrome, [id number] Referrals: Maxx Lagunas MD [Resident] - 06/11/19 2:00 pm - Discharge Summary/Plan Comment DC Time >30 min.: No Discharge Summary/Plan Comment: Admitting Diagnoses: Tachycardia Alcohol withdrawal Discharge Diagnoses: Tachycardia- resolved Alcohol withdrawal Other PMH: Alcohol withdrawal seizures Alcohol abuse Paulo was admitted for mild alcohol withdrawal symptoms. He was given 1 dose of Ativan with improvement in symptoms. Today he is feeling better and asking to go home. He is alert and oriented. No seizures overnight. Had episode of heavy drinking then started to feel tachycardic at home. He was encouraged to continue with sobriety and continue attending AA meetings. He is to continue Thiamine and folic acid at home. Return to PCP in 1 week and return to ED or clinic if concerns should arise. - Patient Data Vitals - Most Recent: Last Vital Signs Temp 97.4 F 06/04/19 08:00 Pulse 76 06/04/19 08:00 Resp 16 06/04/19 08:00 BP 117/78 06/04/19 08:00 Pulse Ox 96 06/04/19 08:00 Weight - Most Recent: 73.8 kg I&O - Last 24 hours: Intake & Output 06/03/19 06/04/19 06/04/19 22:59 06:59 14:59 Intake Total 1462 Output Total 500 Balance 962 Lab Results - Last 24 hrs: Laboratory Results - last 24 hr 06/03/19 06/03/19 06/03/19 Range/Units 18:50 18:50 18:50 WBC 9.95 (4.0-11.0) K/uL RBC 4.69 (4.50-5.90) M/uL Hgb 14.8 (13.0-17.0) g/dL Hct 43.0 (38.0-50.0) % MCV 91.7 (80.0-98.0) fL MCH 31.6 (27.0-32.0) pg MCHC 34.4 (31.0-37.0) g/dL RDW Std Deviation 48.7 (28.0-62.0) fl RDW Coeff of Qing 15 (11.0-15.0) % Plt Count 165 (150-400) K/uL MPV 11.30 (7.40-12.00) fL Neut % (Auto) 62.8 (48.0-80.0) % Lymph % (Auto) 20.7 (16.0-40.0) % Adams % (Auto) 14.8 (0.0-15.0) % Eos % (Auto) 1.2 (0.0-7.0) % Baso % (Auto) 0.5 (0.0-1.5) % Neut # (Auto) 6.3 H (1.4-5.7) K/uL Lymph # (Auto) 2.1 (0.6-2.4) K/uL Adams # (Auto) 1.5 H (0.0-0.8) K/uL Eos # (Auto) 0.1 (0.0-0.7) K/uL Baso # (Auto) 0.1 (0.0-0.1) K/uL Nucleated RBC % 0.0 /100WBC Nucleated RBCs # 0 K/uL Sodium 138 (136-148) mmol/L Potassium 3.4 L (3.5-5.1) mmol/L Chloride 98 (98-107) mmol/L Carbon Dioxide 24.4 (21.0-32.0) mmol/L BUN 9 (7.0-18.0) mg/dL Creatinine 1.0 (0.8-1.3) mg/dL Est Cr Clr Drug Dosing 85.68 mL/min Estimated GFR (MDRD) > 60.0 ml/min Glucose 169 H (74-106) mg/dL Calcium 9.7 (8.5-10.1) mg/dL Magnesium (1.8-2.4) mg/dL Total Bilirubin 1.4 H (0.2-1.0) mg/dL AST 55 H (15-37) IU/L ALT 36 (14-63) IU/L Alkaline Phosphatase 118 H (46-116) U/L Troponin I < 0.050 (0.000-0.056) ng/mL Total Protein 8.4 H (6.4-8.2) g/dL Albumin 3.9 (3.4-5.0) g/dL Globulin 4.5 H (2.6-4.0) g/dL Albumin/Globulin Ratio 0.9 (0.9-1.6) Lipase 188 (73-393) U/L Urine Opiates Screen (NEGATIVE) Ur Oxycodone Screen (NEGATIVE) Urine Methadone Screen (NEGATIVE) Ur Barbiturates Screen (NEGATIVE) Ur Phencyclidine Scrn (NEGATIVE) Ur Amphetamine Screen (NEGATIVE) U Methamphetamines Scrn (NEGATIVE) U Benzodiazepines Scrn (NEGATIVE) U Cocaine Metab Screen (NEGATIVE) U Marijuana (THC) Screen (NEGATIVE) Ethyl Alcohol <3 mg/dL 06/03/19 06/03/19 06/04/19 Range/Units 18:59 19:20 05:05 WBC 6.34 (4.0-11.0) K/uL RBC 4.17 L (4.50-5.90) M/uL Hgb 12.8 L (13.0-17.0) g/dL Hct 37.9 L (38.0-50.0) % MCV 90.9 (80.0-98.0) fL MCH 30.7 (27.0-32.0) pg MCHC 33.8 (31.0-37.0) g/dL RDW Std Deviation 48.1 (28.0-62.0) fl RDW Coeff of Qing 14 (11.0-15.0) % Plt Count 104 L (150-400) K/uL MPV 11.70 (7.40-12.00) fL Neut % (Auto) 51.0 (48.0-80.0) % Lymph % (Auto) 32.0 (16.0-40.0) % Adams % (Auto) 12.9 (0.0-15.0) % Eos % (Auto) 3.6 (0.0-7.0) % Baso % (Auto) 0.5 (0.0-1.5) % Neut # (Auto) 3.2 (1.4-5.7) K/uL Lymph # (Auto) 2.0 (0.6-2.4) K/uL Adams # (Auto) 0.8 (0.0-0.8) K/uL Eos # (Auto) 0.2 (0.0-0.7) K/uL Baso # (Auto) 0.0 (0.0-0.1) K/uL Nucleated RBC % 0.0 /100WBC Nucleated RBCs # 0 K/uL Sodium (136-148) mmol/L Potassium (3.5-5.1) mmol/L Chloride (98-107) mmol/L Carbon Dioxide (21.0-32.0) mmol/L BUN (7.0-18.0) mg/dL Creatinine (0.8-1.3) mg/dL Est Cr Clr Drug Dosing mL/min Estimated GFR (MDRD) ml/min Glucose (74-106) mg/dL Calcium (8.5-10.1) mg/dL Magnesium 1.7 L (1.8-2.4) mg/dL Total Bilirubin (0.2-1.0) mg/dL AST (15-37) IU/L ALT (14-63) IU/L Alkaline Phosphatase (46-116) U/L Troponin I (0.000-0.056) ng/mL Total Protein (6.4-8.2) g/dL Albumin (3.4-5.0) g/dL Globulin (2.6-4.0) g/dL Albumin/Globulin Ratio (0.9-1.6) Lipase (73-393) U/L Urine Opiates Screen NEGATIVE (NEGATIVE) Ur Oxycodone Screen NEGATIVE (NEGATIVE) Urine Methadone Screen NEGATIVE (NEGATIVE) Ur Barbiturates Screen NEGATIVE (NEGATIVE) Ur Phencyclidine Scrn NEGATIVE (NEGATIVE) Ur Amphetamine Screen NEGATIVE (NEGATIVE) U Methamphetamines Scrn NEGATIVE (NEGATIVE) U Benzodiazepines Scrn NEGATIVE (NEGATIVE) U Cocaine Metab Screen NEGATIVE (NEGATIVE) U Marijuana (THC) Screen NEGATIVE (NEGATIVE) Ethyl Alcohol mg/dL 06/04/19 06/04/19 Range/Units 05:05 05:05 WBC (4.0-11.0) K/uL RBC (4.50-5.90) M/uL Hgb (13.0-17.0) g/dL Hct (38.0-50.0) % MCV (80.0-98.0) fL MCH (27.0-32.0) pg MCHC (31.0-37.0) g/dL RDW Std Deviation (28.0-62.0) fl RDW Coeff of Qing (11.0-15.0) % Plt Count (150-400) K/uL MPV (7.40-12.00) fL Neut % (Auto) (48.0-80.0) % Lymph % (Auto) (16.0-40.0) % Adams % (Auto) (0.0-15.0) % Eos % (Auto) (0.0-7.0) % Baso % (Auto) (0.0-1.5) % Neut # (Auto) (1.4-5.7) K/uL Lymph # (Auto) (0.6-2.4) K/uL Adams # (Auto) (0.0-0.8) K/uL Eos # (Auto) (0.0-0.7) K/uL Baso # (Auto) (0.0-0.1) K/uL Nucleated RBC % /100WBC Nucleated RBCs # K/uL Sodium 138 (136-148) mmol/L Potassium 3.7 (3.5-5.1) mmol/L Chloride 105 (98-107) mmol/L Carbon Dioxide 23.8 (21.0-32.0) mmol/L BUN 8 (7.0-18.0) mg/dL Creatinine 0.6 L (0.8-1.3) mg/dL Est Cr Clr Drug Dosing 145.21 mL/min Estimated GFR (MDRD) > 60.0 ml/min Glucose 91 (74-106) mg/dL Calcium 8.7 (8.5-10.1) mg/dL Magnesium 2.0 (1.8-2.4) mg/dL Total Bilirubin 1.5 H (0.2-1.0) mg/dL AST 48 H (15-37) IU/L ALT 32 (14-63) IU/L Alkaline Phosphatase 99 (46-116) U/L Troponin I (0.000-0.056) ng/mL Total Protein 7.0 (6.4-8.2) g/dL Albumin 3.2 L (3.4-5.0) g/dL Globulin 3.8 (2.6-4.0) g/dL Albumin/Globulin Ratio 0.8 L (0.9-1.6) Lipase (73-393) U/L Urine Opiates Screen (NEGATIVE) Ur Oxycodone Screen (NEGATIVE) Urine Methadone Screen (NEGATIVE) Ur Barbiturates Screen (NEGATIVE) Ur Phencyclidine Scrn (NEGATIVE) Ur Amphetamine Screen (NEGATIVE) U Methamphetamines Scrn (NEGATIVE) U Benzodiazepines Scrn (NEGATIVE) U Cocaine Metab Screen (NEGATIVE) U Marijuana (THC) Screen (NEGATIVE) Ethyl Alcohol mg/dL Med Orders - Current: Current Medications Folic Acid (Folic Acid) 1 mg SUBCUT DAILY [facility] Last Admin: 06/04/19 09:24 Dose: 1 mg Thiamine HCl 100 mg/ Sodium (Chloride) 101 mls @ 202 mls/hr IV DAILY JOE Last Admin: 06/04/19 09:20 Dose: 202 mls/hr Sodium Chloride (Normal Saline) 1,000 mls @ 125 mls/hr IV ASDIRECTED [facility] Last Admin: 06/04/19 09:21 Dose: 125 mls/hr Lorazepam (Ativan) 0 mg IVPUSH Q4H PRN; Protocol PRN Reason: ciwaa Ondansetron HCl (Zofran Odt) 4 mg PO Q4H PRN PRN Reason: nausea, able to take PO Sodium Chloride (Saline Flush) 10 ml FLUSH ASDIRECTED PRN PRN Reason: Keep Vein Open Last Admin: 06/03/19 18:56 Dose: 10 ml Sodium Chloride (Saline Flush) 2.5 ml FLUSH ASDIRECTED PRN PRN Reason: Keep Vein Open Last Admin: 06/03/19 18:56 Dose: 2.5 ml Discontinued Medications Sodium Chloride (Normal Saline) 1,000 mls @ 999 mls/hr IV BOLUS ONE Stop: 06/03/19 19:52 Last Admin: 06/03/19 18:56 Dose: 999 mls/hr Magnesium Sulfate 2 gm/ Premix 50 mls @ 50 mls/hr IV ONETIME ONE Stop: 06/03/19 21:44 Last Admin: 06/03/19 20:58 Dose: 50 mls/hr Lorazepam (Ativan) 1 mg IVPUSH ONETIME ONE Stop: 06/03/19 18:55 Last Admin: 06/03/19 19:08 Dose: 1 mg Lorazepam (Ativan) 1 mg IVPUSH ONETIME ONE Stop: 06/03/19 20:18 Last Admin: 06/03/19 20:38 Dose: 1 mg Magnesium Sulfate (Magnesium Sulfate 50%) 1 gm IV ONETIME STA Stop: 06/03/19 20:19 Potassium Chloride (Klor-Con M20) 40 meq PO ONETIME ONE Stop: 06/03/19 22:39 Last Admin: 06/03/19 23:20 Dose: 40 meq
== END 2019-06-04 13:37 | disposition home or self-care (01) ==
LOC: MW.ED 18:45 → MW.MS 20:28
PROVIDERS: ADMIT Internal Medicine; ATTEND Internal Medicine
DX: F10.230 Alcohol dependence with withdrawal, uncomplicated (principal); R00.0 Tachycardia, unspecified; F32.9 Major depressive disorder, single episode, unspecified; F17.200 Nicotine dependence, unspecified, uncomplicated; Z79.899 Other long term (current) drug therapy; Y90.0 Blood alcohol level of less than 20 mg/100 ml
CPT/HCPCS: 36415; 71045; 80053; 80305; 80307; 82962; 83690; 83735; 84484; 85025; 93005; 96361; 96374; 99284; A9270; J2060; J3411; J3475; J7030; J7050

== ENCOUNTER 2019-07-23 15:01 | Emergency (ER) | payer MEDICAID ==
--- NOTE | 2019-07-23 15:27 | EDM.PDOC ---
ED HPI GENERAL MEDICAL PROBLEM - General Chief Complaint: Behavioral/Psych Stated Complaint: MENTAL HEALTH CHECK Time Seen by Provider: 07/23/19 15:02 Source of Information: Reports: Patient History Limitations: Reports: No Limitations - History of Present Illness INITIAL COMMENTS - FREE TEXT/NARRATIVE: HISTORY AND PHYSICAL: History of present illness: Patient is a 53-year-old male who presents to the ED today for concern of mental health evaluation. Patient states that he was on the phone with a friend when they were concerned about him so they called the police. Patient states he told a friend that he was not living his life as he should as he drinks too much and the friend was concerned and called the police. Police are not at bedside. Patient states he does not have any suicidal/homicidal thoughts or ideation. Denies hallucinations/delusions. Patient states that he does drink a large amount of alcohol daily and drinks approximately 1 L of hard alcohol every day. Patient states he has been drinking today but this is normal for him. Patient denies fever, chills, chest pain, shortness of breath, or cough. Denies headache, neck stiff ness, change in vision, syncope, or near syncope. Denies nausea, vomiting, abdominal pain, diarrhea, constipation, or dysuria. Has not noted any blood in urine or stool. Patient has been eating and drinking appropriately. Review of systems: As per history of present illness and below otherwise all systems reviewed and negative. Past medical history: As per history of present illness and as reviewed below otherwise noncontributory. Surgical history: As per history of present illness and as reviewed below otherwise noncontributory. Social history: See social history for further information Family history: As per history of present illness and as reviewed below otherwise noncontributory. Physical exam: General: Patient is alert, oriented, and in no acute distress. Patient sitting comfortably on exam table. Does not appear intoxicated on exam. Answers questions appropriately. HEENT: Atraumatic, normocephalic, pupils equal and reactive bilaterally, negative for conjunctival pallor or scleral icterus, mucous membranes moist, TMs normal bilaterally, throat clear, neck supple, nontender, trachea midline. No drooling or trismus noted. No meningeal signs. No hot potato voice noted. Lungs: Clear to auscultation, breath sounds equal bilaterally, chest nontender. Heart: S1S2, regular rate and rhythm without overt murmur Abdomen: Soft, nondistended, nontender. Negative for masses or hepatosplenomegaly. Negative for costovertebral tenderness. Pelvis: Stable nontender. Genitourinary: Deferred. Rectal: Deferred. Skin: Intact, warm, dry. No lesions or rashes noted. Extremities: Atraumatic, negative for cords or calf pain. Neurovascular unremarkable. Neuro: Awake, alert, oriented. Cranial nerves II through XII unremarkable. Cerebellum unremarkable. Motor and sensory unremarkable throughout. Exam nonfocal. Notes: Both nursing staff and myself asked patient in multiple ways about suicidal ideation and patient declines. Clinically patient does not appear intoxicated and answers questions appropriately. Voices understanding and is agreeable to plan of care. Denies any further questions or concerns at this time. Diagnostics: Accucheck Therapeutics: None Prescription: None Impression: Medical screening exam Plan: 1. Follow up with a primary care provider as discussed. Return to the ED as needed and as discussed. Definitive disposition and diagnosis as appropriate pending reevaluation and review of above. - Related Data Allergies Allergy/AdvReac Type Severity Reaction Status Date / Time No Known Allergies Allergy Verified 07/23/19 15:20 Home Meds: Home Meds . [No Known Home Meds] 07/23/19 [History] Past Medical History HEENT History: Reports: Impaired Vision, Other (See Below) Other HEENT History: uses corrective glasses Cardiovascular History: Reports: None Respiratory History: Reports: None Gastrointestinal History: Reports: Cholelithiasis, Cirrhosis, Other (See Below) Other Gastrointestinal History: Had Paracentesis done twice November or December 2018 Genitourinary History: Reports: Prostate Disorder, Other (See Below) Other Genitourinary History: unable to see urologist- no insurance. Difficulty emptying his bladder. Stated "it takes forever to empty it." Musculoskeletal History: Reports: None Neurological History: Reports: None Psychiatric History: Reports: Addiction, Depression, Other (See Below) Other Psychiatric History: Alcoholic. seasonal depression Endocrine/Metabolic History: Reports: None Insulin Pump Model and Wildlife Ecology Professor: None Hematologic History: Reports: None Immunologic History: Reports: None Oncologic (Cancer) History: Reports: None Dermatologic History: Reports: Other (See Below) Other Dermatologic History: claimed he has "acne all over his body" - Infectious Disease History Infectious Disease History: Reports: Chicken Pox - Past Surgical History Head Surgeries/Procedures: Reports: None HEENT Surgical History: Reports: None GI Surgical History: Reports: Cholecystectomy Male Surgical History: Reports: None Musculoskeletal Surgical History: Reports: None Social & Family History - Family History Family Medical History: Noncontributory - Caffeine Use Caffeine Use: Reports: Coffee Other Caffeine Use: 1 cup coffee - Living Situation & Occupation Living situation: Reports: Single Occupation: Unemployed ED ROS GENERAL - Review of Systems Review Of Systems: Comprehensive ROS is negative, except as noted in HPI. ED EXAM, GENERAL - Physical Exam Exam: See Below (see dictation) Course - Vital Signs Last Recorded V/S: Last Vital Signs Temp 97.7 F 07/23/19 15:10 Pulse 101 H 07/23/19 15:10 Resp 18 07/23/19 15:10 BP 141/95 H 07/23/19 15:10 Pulse Ox 97 07/23/19 15:10 - Orders/Labs/Meds Orders: Active Orders 24 hr Category Date Time Status Glucose [Blood Glucose Check, Bedside] [RC] ONETIME Care 07/23/19 15:22 Active Labs: Laboratory Tests 07/23/19 Range/Units 15:27 POC Glucose 76 (60-110) mg/dL Departure - Departure Time of Disposition: 15:34 Disposition: Home, Self-Care 01 Clinical Impression: Encounter for medical screening examination - Discharge Information Referrals: PCP,Unknown [Primary Care Provider] - Forms: ED Department Discharge Additional Instructions: The following information is given to patients seen in the emergency department who are being discharged to home. This information is to outline your options for follow-up care. We provide all patients seen in our emergency department with a follow-up referral. The need for follow-up, as well as the timing and circumstances, are variable depending upon the specifics of your emergency department visit. If you don't have a primary care physician on staff, we will provide you with a referral. We always advise you to contact your personal physician following an emergency department visit to inform them of the circumstance of the visit and for follow-up with them and/or the need for any referrals to a consulting specialist. The emergency department will also refer you to a specialist when appropriate. This referral assures that you have the opportunity for follow-up care with a specialist. All of these measure are taken in an effort to provide you with optimal care, which includes your follow-up. Under all circumstances we always encourage you to contact your private physician who remains a resource for coordinating your care. When calling for follow-up care, please make the office aware that this follow-up is from your recent emergency room visit. If for any reason you are refused follow-up, please contact the [facility] Emergency Department at and asked to speak to the emergency department charge nurse. [facility] [address] [place] [id number] [facility] [address] [place] [address] 1. Follow up with a primary care provider as discussed. Return to the ED as needed and as discussed. Sepsis Event Note - Focused Exam Vital Signs: Vital Signs Temp Pulse Resp BP Pulse Ox 07/23/19 15:10 97.7 F 101 H 18 141/95 H 97 Date Exam was Performed: 07/23/19 Time Exam was Performed: 15:34 - My Orders Last 24 Hours: My Active Orders 07/23/19 15:22 Glucose [Blood Glucose Check, Bedside] [RC] ONETIME - Assessment/Plan Last 24 Hours: My Active Orders 07/23/19 15:22 Glucose [Blood Glucose Check, Bedside] [RC] ONETIME
[2019-07-23 15:48] VITALS: BP 128/83; PULSE 74
== END 2019-07-23 15:45 | disposition home or self-care (01) ==
LOC: MW.ED 15:01
DX: Z00.8 Encounter for other general examination (principal)
CPT/HCPCS: 82962; 99282; 99283

== ENCOUNTER 2019-12-06 15:31 | Observation (INO) | payer MEDICAID ==
[2019-12-06] MEDS ORDERED: Sodium Chloride 0.9% 2.5 ML Syringe FLUSH PRN (16:08)
[2019-12-06] MEDS ORDERED: Sodium Chloride 0.9% 1,000 ML IV ONE (16:08)
[2019-12-06] MEDS ORDERED: Sodium Chloride 0.9% 10 ML Syringe FLUSH PRN (16:08)
--- NOTE | 2019-12-06 16:08 | EDM.PDOC ---
ED HPI GENERAL MEDICAL PROBLEM - General Chief Complaint: Neuro Symptoms/Deficits Stated Complaint: LT EYE Time Seen by Provider: 12/06/19 15:54 Source of Information: Reports: Patient - History of Present Illness INITIAL COMMENTS - FREE TEXT/NARRATIVE: History of present illness: 54-year-old male presented with multiple symptoms of varying onset times. He currently has vision blurring of his left eye which he reports has been ongoing for the last 2 weeks. He was going to try to see an e learning designer but he has no money and therefore he has not been able to get in to see anybody. He also reports that he has been very weak and fatigued and dizzy over the last few days to weeks and yesterday he was only able to work a couple hours before he had to stop due to fatigue and feeling dizzy and felt off balance. That symptom has continued today. Apparently he hitchhiked to the hospital here today when he finally decided that he could wait no longer needed medical care. He does have a visible cough and reports that has been ongoing for a while to cannot say an exact start time. Does not have any difficulty breathing or chest pain. Review of systems: As per history of present illness and below otherwise all systems reviewed and negative. Past medical history: As per history of present illness and as reviewed below otherwise noncontributory. History of alcohol abuse and withdrawal Surgical history: As per history of present illness and as reviewed below otherwise noncontributory. Cholecystectomy Social history: Alcohol abuse, daily smoker, occasional marijuana Family history: As per history of present illness and as reviewed below otherwise noncontributory. Physical exam: GEN: no acute distress, chronically ill appearing HEENT: Atraumatic, normocephalic, mucous membranes dry, EOMI, left eye appears to have discharge from the eye. When he covers his left eye he sees normally from the right eye. Covering the right eye he sees blurred through the left eye. Neck: supple, nontender, trachea midline. Lungs: No respiratory distress. Coarse cough. Heart: RRR Abdomen: Soft, nondistended, nontender. Back: nontender Extremities: Atraumatic. Neurovascularly intact. Neuro: Awake, alert, oriented. Neuro Exam nonfocal. Intact strength bilaterally in both arms and legs. No facial droop. No sensory deficit. Does seem slow to answer questions, however speech is not aphasic and clear without any dysarthria. Skin: warm, dry, no lesions Psych: Appears to have normal mood and affect Diagnostics: Labs, CT, chest x-ray, UA, drug screen Therapeutics: [] MDM: Impression: [] Plan: [] Definitive disposition and diagnosis as appropriate pending reevaluation and review of above. - Related Data Allergies Allergy/AdvReac Type Severity Reaction Status Date / Time No Known Allergies Allergy Verified 12/06/19 20:02 Home Meds: Home Meds . [No Known Home Meds] 07/23/19 [History] Past Medical History HEENT History: Reports: Impaired Vision, Other (See Below) Other HEENT History: uses corrective glasses Cardiovascular History: Reports: None Respiratory History: Reports: None Gastrointestinal History: Reports: Cholelithiasis, Cirrhosis, Other (See Below) Other Gastrointestinal History: Had Paracentesis done twice November or December 2018 Genitourinary History: Reports: Prostate Disorder, Other (See Below) Other Genitourinary History: unable to see urologist- no insurance. Difficulty emptying his bladder. Stated "it takes forever to empty it." Musculoskeletal History: Reports: None Neurological History: Reports: None Psychiatric History: Reports: Addiction, Depression, Other (See Below) Other Psychiatric History: Alcoholic. seasonal depression Endocrine/Metabolic History: Reports: None Insulin Pump Model and Social Media Editor: None Hematologic History: Reports: None Immunologic History: Reports: None Oncologic (Cancer) History: Reports: None Dermatologic History: Reports: Other (See Below) Other Dermatologic History: claimed he has "acne all over his body" - Infectious Disease History Infectious Disease History: Reports: Chicken Pox - Past Surgical History Head Surgeries/Procedures: Reports: None HEENT Surgical History: Reports: None GI Surgical History: Reports: Cholecystectomy Male Surgical History: Reports: None Musculoskeletal Surgical History: Reports: None Social & Family History - Family History Family Medical History: Noncontributory - Tobacco Use Smoking Status *Q: Current Every Day Smoker Years of Tobacco use: 30 Packs/Tins Daily: 1 - Caffeine Use Caffeine Use: Reports: Coffee Other Caffeine Use: 1 cup coffee - Alcohol Use Days Per Week of Alcohol Use: 7 Number of Drinks Per Day: 20 Total Drinks Per Week: 140 - Recreational Drug Use Recreational Drug Use: Yes Drug Use in Last 12 Months: Yes Recreational Drug Type: Reports: Marijuana/Hashish Recreational Drug Use Frequency: Monthly - Living Situation & Occupation Living situation: Reports: Single Occupation: Unemployed ED ROS GENERAL - Review of Systems Review Of Systems: See Below (See HPI) ED EXAM, NEURO - Physical Exam Exam: See Below (See HPI) EKG INTERPRETATION EKG Interpretation Comments: EKG performed today at 3:57 PM, sinus rhythm, rate 79, PVCs, QTC 464, no acute ischemia, no STEMI. Independently interpreted by me. *Q Meaningful Use (ADM) - Stroke *Q Aspirin Contraindications Stroke *Q: Other (Use Special Inst) (N/A) Course - Vital Signs Text/Narrative:: Left eye blurring ongoing for 2 weeks, normal vision from the right eye. Does appear to have some clear discharge from the eye Also generally weak and dizzy/off balance. +cough Differential diagnosis: Conjunctivitis, corneal abrasion, eye trauma, vision loss due to stroke, cerebellar ischemia or hemorrhage, electrolyte abnormality, pneumonia, coronavirus, dehydration Workup largely unremarkable, Slightly low potassium and hypomagnesemia as well on labs. CT brain negative for acute findings, chest x-ray with no acute findings, COVID swab negative, EKG nonischemic with PVCs, alcohol is elevated. Drug screen negative. Will admit the patient due to confusion/weakness though no focalized neurologic deficits and no indication for TPA at this time as symptoms are longstanding/outside of any window. Discussed with admitting physician. Resident came down to evaluate the patient and reports that patient is actually slightly improved from previous hospital visit when he was here for alcohol withdrawal seizure/delirium Last Recorded V/S: Last Vital Signs Temp 97.7 F 12/07/19 07:30 Pulse 65 12/07/19 07:30 Resp 17 12/07/19 07:30 BP 154/92 H 12/07/19 07:30 Pulse Ox 98 12/07/19 07:30 - Orders/Labs/Meds Orders: Active Orders 24 hr Category Date Time Status EKG Documentation Completion [RC] STAT Care 12/06/19 16:09 Active CULTURE BLOOD [BC] Stat Lab 12/06/19 16:04 Received CULTURE BLOOD [BC] Stat Lab 12/06/19 16:52 Received Sodium Chloride 0.9% [Saline Flush] Med 12/06/19 16:08 Active 10 ml FLUSH ASDIRECTED PRN Sodium Chloride 0.9% [Saline Flush] Med 12/06/19 16:08 Active 2.5 ml FLUSH ASDIRECTED PRN Blood Culture x2 Reflex Set [OM.PC] Stat Oth 12/06/19 16:10 Ordered Saline Lock Insert [OM.PC] Stat Ot 12/06/19 16:08 Ordered Medication Orders Thiamine HCl 100 mg/ Sodium (Chloride) 101 mls @ 202 mls/hr IV DAILY JOE Last Admin: 12/06/19 22:36 Dose: 202 mls/hr Documented by: VALENTINO Pantoprazole Sodium 40 mg/ (Sodium Chloride) 10 mls @ 300 mls/hr IV Q24H JOE Last Admin: 12/06/19 20:24 Dose: 300 mls/hr Documented by: ABHILASH Lorazepam (Ativan) 0 mg IVPUSH Q4H PRN; Protocol PRN Reason: Withdrawal Symptoms Last Admin: 12/07/19 02:39 Dose: 2 mg Documented by: Admin: 12/06/19 22:42 Dose: 2 mg Documented by: VALENTINO Multivit/Ca Carb/B Cmplx/FA/Prenat (Renal Caps Softgel) 1 cap PO DAILY JOE Last Admin: 12/07/19 08:44 Dose: 1 cap Documented by: ELIZABETH Sodium Chloride (Saline Flush) 10 ml FLUSH ASDIRECTED PRN PRN Reason: Keep Vein Open Last Admin: 12/06/19 16:21 Dose: 10 ml Documented by: ARMANDO Sodium Chloride (Saline Flush) 2.5 ml FLUSH ASDIRECTED PRN PRN Reason: Keep Vein Open Last Admin: 12/06/19 16:21 Dose: 2.5 ml Documented by: ARMANDO Labs: Laboratory Tests 12/06/19 12/06/19 12/06/19 Range/Units 16:01 16:04 16:04 WBC 4.14 (4.0-11.0) K/uL RBC 4.69 (4.50-5.90) M/uL Hgb 14.8 (13.0-17.0) g/dL Hct 43.0 (38.0-50.0) % MCV 91.7 (80.0-98.0) fL MCH 31.6 (27.0-32.0) pg MCHC 34.4 (31.0-37.0) g/dL RDW Std Deviation 47.9 (28.0-62.0) fl RDW Coeff of Qing 14 (11.0-15.0) % Plt Count 138 L (150-400) K/uL MPV 11.00 (7.40-12.00) fL Neut % (Auto) 51.4 (48.0-80.0) % Lymph % (Auto) 30.9 (16.0-40.0) % [place] % (Auto) 13.3 (0.0-15.0) % Eos % (Auto) 3.4 (0.0-7.0) % Baso % (Auto) 1.0 (0.0-1.5) % Neut # (Auto) 2.1 (1.4-5.7) K/uL Lymph # (Auto) 1.3 (0.6-2.4) K/uL [place] # (Auto) 0.6 (0.0-0.8) K/uL Eos # (Auto) 0.1 (0.0-0.7) K/uL Baso # (Auto) 0.0 (0.0-0.1) K/uL Nucleated RBC % 0.0 /100WBC Nucleated RBCs # 0 K/uL INR 1.18 Sodium (136-148) mmol/L Potassium (3.5-5.1) mmol/L Chloride (98-107) mmol/L Carbon Dioxide (21.0-32.0) mmol/L BUN (7.0-18.0) mg/dL Creatinine (0.8-1.3) mg/dL Est Cr Clr Drug Dosing mL/min Estimated GFR (MDRD) ml/min Glucose (74-106) mg/dL Calcium (8.5-10.1) mg/dL Magnesium (1.8-2.4) mg/dL Total Bilirubin (0.2-1.0) mg/dL AST (15-37) IU/L ALT (14-63) IU/L Alkaline Phosphatase (46-116) U/L Creatine Kinase (26-308) U/L Troponin I (0.000-0.056) ng/mL Total Protein (6.4-8.2) g/dL Albumin (3.4-5.0) g/dL Globulin (2.6-4.0) g/dL Albumin/Globulin Ratio (0.9-1.6) TSH 3rd Generation (0.36-3.74) uIU/mL Prolactin 5.1 ng/mL Urine Color Urine Appearance Urine pH (5.0-8.0) Ur Specific [place] (1.001-1.035) Urine Protein (NEGATIVE) mg/dL Urine Glucose (UA) (NEGATIVE) mg/dL Urine Ketones (NEGATIVE) mg/dL Urine Occult Blood (NEGATIVE) Urine Nitrite (NEGATIVE) Urine Bilirubin (NEGATIVE) Urine Urobilinogen (<2.0) EU/dL Ur Leukocyte Esterase (NEGATIVE) Urine RBC (0-2/HPF) Urine WBC (0-5/HPF) Ur Epithelial Cells (NONE-FEW) Urine Bacteria (NEGATIVE) Urine Opiates Screen (NEGATIVE) Ur Oxycodone Screen (NEGATIVE) Urine Methadone Screen (NEGATIVE) Ur Barbiturates Screen (NEGATIVE) Ur Phencyclidine Scrn (NEGATIVE) Ur Amphetamine Screen (NEGATIVE) U Methamphetamines Scrn (NEGATIVE) U Benzodiazepines Scrn (NEGATIVE) U Cocaine Metab Screen (NEGATIVE) U Marijuana (THC) Screen (NEGATIVE) Ethyl Alcohol mg/dL SARS Virus RNA (PCR) (NEGATIVE) 12/06/19 12/06/19 12/06/19 Range/Units 16:04 17:44 18:10 WBC (4.0-11.0) K/uL RBC (4.50-5.90) M/uL Hgb (13.0-17.0) g/dL Hct (38.0-50.0) % MCV (80.0-98.0) fL MCH (27.0-32.0) pg MCHC (31.0-37.0) g/dL RDW Std Deviation (28.0-62.0) fl RDW Coeff of Qing (11.0-15.0) % Plt Count (150-400) K/uL MPV (7.40-12.00) fL Neut % (Auto) (48.0-80.0) % Lymph % (Auto) (16.0-40.0) % [place] % (Auto) (0.0-15.0) % Eos % (Auto) (0.0-7.0) % Baso % (Auto) (0.0-1.5) % Neut # (Auto) (1.4-5.7) K/uL Lymph # (Auto) (0.6-2.4) K/uL [place] # (Auto) (0.0-0.8) K/uL Eos # (Auto) (0.0-0.7) K/uL Baso # (Auto) (0.0-0.1) K/uL Nucleated RBC % /100WBC Nucleated RBCs # K/uL INR Sodium 142 (136-148) mmol/L Potassium 3.4 L (3.5-5.1) mmol/L Chloride 103 (98-107) mmol/L Carbon Dioxide 22.8 (21.0-32.0) mmol/L BUN 8 (7.0-18.0) mg/dL Creatinine 0.9 (0.8-1.3) mg/dL Est Cr Clr Drug Dosing 94.08 mL/min Estimated GFR (MDRD) > 60.0 ml/min Glucose 89 (74-106) mg/dL Calcium 8.9 (8.5-10.1) mg/dL Magnesium 1.5 L (1.8-2.4) mg/dL Total Bilirubin 0.9 (0.2-1.0) mg/dL AST 85 H (15-37) IU/L ALT 45 (14-63) IU/L Alkaline Phosphatase 85 (46-116) U/L Creatine Kinase 192 (26-308) U/L Troponin I < 0.050 (0.000-0.056) ng/mL Total Protein 7.9 (6.4-8.2) g/dL Albumin 3.9 (3.4-5.0) g/dL Globulin 4.0 (2.6-4.0) g/dL Albumin/Globulin Ratio 1.0 (0.9-1.6) TSH 3rd Generation 1.89 (0.36-3.74) uIU/mL Prolactin ng/mL Urine Color YELLOW Urine Appearance CLEAR Urine pH 6.0 (5.0-8.0) Ur Specific [place] 1.025 (1.001-1.035) Urine Protein TRACE H (NEGATIVE) mg/dL Urine Glucose (UA) NEGATIVE (NEGATIVE) mg/dL Urine Ketones 15 H (NEGATIVE) mg/dL Urine Occult Blood NEGATIVE (NEGATIVE) Urine Nitrite NEGATIVE (NEGATIVE) Urine Bilirubin NEGATIVE (NEGATIVE) Urine Urobilinogen 1.0 (<2.0) EU/dL Ur Leukocyte Esterase NEGATIVE (NEGATIVE) Urine RBC 0-1 (0-2/HPF) Urine WBC 0-1 (0-5/HPF) Ur Epithelial Cells RARE (NONE-FEW) Urine Bacteria RARE (NEGATIVE) Urine Opiates Screen (NEGATIVE) Ur Oxycodone Screen (NEGATIVE) Urine Methadone Screen (NEGATIVE) Ur Barbiturates Screen (NEGATIVE) Ur Phencyclidine Scrn (NEGATIVE) Ur Amphetamine Screen (NEGATIVE) U Methamphetamines Scrn (NEGATIVE) U Benzodiazepines Scrn (NEGATIVE) U Cocaine Metab Screen (NEGATIVE) U Marijuana (THC) Screen (NEGATIVE) Ethyl Alcohol 191 mg/dL SARS Virus RNA (PCR) NEGATIVE (NEGATIVE) 12/06/19 Range/Units 18:10 WBC (4.0-11.0) K/uL RBC (4.50-5.90) M/uL Hgb (13.0-17.0) g/dL Hct (38.0-50.0) % MCV (80.0-98.0) fL MCH (27.0-32.0) pg MCHC (31.0-37.0) g/dL RDW Std Deviation (28.0-62.0) fl RDW Coeff of Qing (11.0-15.0) % Plt Count (150-400) K/uL MPV (7.40-12.00) fL Neut % (Auto) (48.0-80.0) % Lymph % (Auto) (16.0-40.0) % [place] % (Auto) (0.0-15.0) % Eos % (Auto) (0.0-7.0) % Baso % (Auto) (0.0-1.5) % Neut # (Auto) (1.4-5.7) K/uL Lymph # (Auto) (0.6-2.4) K/uL [place] # (Auto) (0.0-0.8) K/uL Eos # (Auto) (0.0-0.7) K/uL Baso # (Auto) (0.0-0.1) K/uL Nucleated RBC % /100WBC Nucleated RBCs # K/uL INR Sodium (136-148) mmol/L Potassium (3.5-5.1) mmol/L Chloride (98-107) mmol/L Carbon Dioxide (21.0-32.0) mmol/L BUN (7.0-18.0) mg/dL Creatinine (0.8-1.3) mg/dL Est Cr Clr Drug Dosing mL/min Estimated GFR (MDRD) ml/min Glucose (74-106) mg/dL Calcium (8.5-10.1) mg/dL Magnesium (1.8-2.4) mg/dL Total Bilirubin (0.2-1.0) mg/dL AST (15-37) IU/L ALT (14-63) IU/L Alkaline Phosphatase (46-116) U/L Creatine Kinase (26-308) U/L Troponin I (0.000-0.056) ng/mL Total Protein (6.4-8.2) g/dL Albumin (3.4-5.0) g/dL Globulin (2.6-4.0) g/dL Albumin/Globulin Ratio (0.9-1.6) TSH 3rd Generation (0.36-3.74) uIU/mL Prolactin ng/mL Urine Color Urine Appearance Urine pH (5.0-8.0) Ur Specific [place] (1.001-1.035) Urine Protein (NEGATIVE) mg/dL Urine Glucose (UA) (NEGATIVE) mg/dL Urine Ketones (NEGATIVE) mg/dL Urine Occult Blood (NEGATIVE) Urine Nitrite (NEGATIVE) Urine Bilirubin (NEGATIVE) Urine Urobilinogen (<2.0) EU/dL Ur Leukocyte Esterase (NEGATIVE) Urine RBC (0-2/HPF) Urine WBC (0-5/HPF) Ur Epithelial Cells (NONE-FEW) Urine Bacteria (NEGATIVE) Urine Opiates Screen NEGATIVE (NEGATIVE) Ur Oxycodone Screen NEGATIVE (NEGATIVE) Urine Methadone Screen NEGATIVE (NEGATIVE) Ur Barbiturates Screen NEGATIVE (NEGATIVE) Ur Phencyclidine Scrn NEGATIVE (NEGATIVE) Ur Amphetamine Screen NEGATIVE (NEGATIVE) U Methamphetamines Scrn NEGATIVE (NEGATIVE) U Benzodiazepines Scrn NEGATIVE (NEGATIVE) U Cocaine Metab Screen NEGATIVE (NEGATIVE) U Marijuana (THC) Screen NEGATIVE (NEGATIVE) Ethyl Alcohol mg/dL SARS Virus RNA (PCR) (NEGATIVE) Meds: Medications Generic Name Dose Route Start Last Admin Trade Name Freq PRN Reason Stop Dose Admin Thiamine HCl 100 mg/ Sodium 101 mls @ 202 mls/hr 09/03/20 19:15 12/06/19 22:36 Chloride IV 202 mls/hr DAILY JOE Administration Pantoprazole Sodium 40 mg/ 10 mls @ 300 mls/hr 12/06/19 20:00 12/06/19 20:24 Sodium Chloride IV 300 mls/hr Q24H JOE Administration Lorazepam 0 mg 12/06/19 21:43 12/07/19 02:39 Ativan IVPUSH 2 mg Q4H PRN Administration Withdrawal Symptoms Protocol Multivit/Ca Carb/B Cmplx/FA/Prenat 1 cap 12/07/19 09:00 12/07/19 08:44 Renal Caps Softgel PO 1 cap DAILY JOE Administration Sodium Chloride 10 ml 12/06/19 16:08 12/06/19 16:21 Saline Flush FLUSH 10 ml ASDIRECTED PRN Administration Keep Vein Open Sodium Chloride 2.5 ml 12/06/19 16:08 12/06/19 16:21 Saline Flush FLUSH 2.5 ml ASDIRECTED PRN Administration Keep Vein Open Discontinued Medications Generic Name Dose Route Start Last Admin Trade Name Freq PRN Reason Stop Dose Admin Gadobenate Dimeglumine 20 ml 12/07/19 07:22 12/07/19 07:22 Multihance IVPUSH 12/07/19 07:23 14 ml ONETIME STA Administration Sodium Chloride 1,000 mls @ 999 mls/hr 12/06/19 16:08 12/06/19 16:21 Normal Saline IV 12/06/19 17:08 999 mls/hr .Bolus ONE Administration Magnesium Sulfate 2 gm/ Premix 50 mls @ 50 mls/hr 12/06/19 18:30 12/06/19 19:12 IV 12/06/19 19:29 50 mls/hr ONETIME ONE Administration Magnesium Sulfate 2 gm/ Premix 50 mls @ 50 mls/hr 12/07/19 07:38 12/07/19 08:44 IV 12/07/19 08:37 50 mls/hr ONETIME ONE Administration Lorazepam 0 mg 12/06/19 19:01 Ativan IVPUSH Q4H PRN Agitation Protocol Potassium Chloride 40 meq 12/06/19 19:30 12/06/19 19:41 Klor-Con M20 PO 12/06/19 19:31 40 meq ONETIME ONE Administration - Re-Assessments/Exams Free Text/Narrative Re-Assessment/Exam: 12/06/19 18:23 Dr. Villatoro called back and accepts the case. Request to put the patient under telemetry/observation. Departure - Departure Time of Disposition: 18:23 Disposition: Refer to Observation Clinical Impression: Dizziness, Blurred vision, left eye Altered mental status Qualifiers: Altered mental status type: disorientation Qualified Code(s): R41.0 - Disorientation, unspecified - Discharge Information Sepsis Event Note (ED) - Evaluation Sepsis Screening Result: No Definite Risk - My Orders Last 24 Hours: My Active Orders 12/06/19 16:04 CULTURE BLOOD [BC] Stat 12/06/19 16:08 Sodium Chloride 0.9% [Saline Flush] 10 ml FLUSH ASDIRECTED PRN Sodium Chloride 0.9% [Saline Flush] 2.5 ml FLUSH ASDIRECTED PRN Saline Lock Insert [OM.PC] Stat 12/06/19 16:09 EKG Documentation Completion [RC] STAT 12/06/19 16:10 Blood Culture x2 Reflex Set [OM.PC] Stat 12/06/19 16:52 CULTURE BLOOD [BC] Stat - Assessment/Plan Last 24 Hours: My Active Orders 12/06/19 16:04 CULTURE BLOOD [BC] Stat 12/06/19 16:08 Sodium Chloride 0.9% [Saline Flush] 10 ml FLUSH ASDIRECTED PRN Sodium Chloride 0.9% [Saline Flush] 2.5 ml FLUSH ASDIRECTED PRN Saline Lock Insert [OM.PC] Stat 12/06/19 16:09 EKG Documentation Completion [RC] STAT 12/06/19 16:10 Blood Culture x2 Reflex Set [OM.PC] Stat 12/06/19 16:52 CULTURE BLOOD [BC] Stat
--- NOTE | 2019-12-06 16:43 | CR ---
Chest: AP view of the chest was obtained. Stacy: Prior chest x-ray of 06/03/19. Stable granulomas are noted within the chest. No acute parenchymal change is seen. Heart size and mediastinum are within normal limits for AP technique. No acute parenchymal change is seen within either lung. Bony structures are grossly intact. There is a portion of the inferior left lateral chest that was not included on the study. Impression: 1. Findings as noted above. 2. Nothing acute is seen on AP chest x-ray. Diagnostic code #2 This report was dictated in MDT
[2019-12-06 16:52] LABS: BLOOD UREA NITROGEN,BUN 8 mg/dL (7.0-18.0); CARBON DIOXIDE,CO2 22.8 mmol/L (21.0-32.0); CHLORIDE,CL 103 mmol/L (98-107); GLUCOSE RANDOM 89 mg/dL (74-106); POTASSIUM,K 3.4 mmol/L (3.5-5.1); SODIUM,NA 142 mmol/L (136-148)
--- NOTE | 2019-12-06 16:55 | CT ---
Head CT Technique: Multiple axial sections through the brain were obtained. Intravenous contrast was not utilized. [place]: No prior intracranial imaging is available. Findings: Ventricles along with basal cisterns and sulci over the convexities appear within normal limits for the patient's age. No abnormal parenchymal densities are seen. No evidence of intracranial hemorrhage. No midline shift or mass-effect is seen. Right and left globes are symmetric. No discrete retrobulbar abnormality is noted. Bone window settings were reviewed. No acute calvarial finding is seen. Visualized mastoid sinuses show nothing acute. Minimal areas of scattered mucosal thickening are seen within the left frontal, ethmoid and left maxillary sinus. Impression: 1. Minimal paranasal sinus finding most likely chronic. 2. No acute intracranial abnormality is appreciated. Diagnostic code #2 This report was dictated in MDT
[2019-12-06] MEDS ORDERED: Magnesium Sulfate (4.06 MEQ/ML) 5 GM/10 ML SDV IV ONE (18:12)
[2019-12-06] MEDS ORDERED: Magnesium Sulfate/Water 2 GM in Premix Bag 1 BAG IV ONE (18:30)
--- NOTE | 2019-12-06 18:58 | PCM.HP.2 ---
H&P History of Present Illness - General Date of Service: 12/06/19 Admit Problem/Dx: Admission Diagnosis/Problem Admission Diagnosis/Problem Dizziness Source of Information: Patient History Limitations: Reports: No Limitations - History of Present Illness Initial Comments - Free Text/Narative: 54 y.o male with significant history of ETOH abuse, seizures secondary to chronic ETOH abuse and liver dysfunction; presenting today to ED with worsening fatigue and left wye blurriness. Mentions for the past week changes in vision of his left eye but mentioned today his fatigue and tiredness were getting worse and proceeded to the ED. Mentions vision change was thought to be a FB or irritant but cannot recall anything getting in there. Of note pt. endorses drinking many 12-14 ounce drinks per night for the past week and possibly longer. Denies any CP,SOB, head trauma, recent seizures, palpitations, dysuria, head aches, or other acute symptoms. ED course: CXR negative Head CT negative Mild hypokalemia Mild hypomagnesemia: received 2gms IV +AMBROSE of >120 UA + for trace protein/ketones Nothing acute appreciated. Bedside: endorses continued blurry vision. Denies nay pain. +mild non-productive cough; endorses smoking 1 PPD . +fatigue and tremulousness - Related Data Allergies/Adverse Reactions: Allergies Allergy/AdvReac Type Severity Reaction Status Date / Time No Known Allergies Allergy Verified 12/06/19 15:53 Home Medications: Home Meds . [No Known Home Meds] 07/23/19 [History] Past Medical History HEENT History: Reports: Impaired Vision, Other (See Below) Other HEENT History: uses corrective glasses Cardiovascular History: Reports: None Respiratory History: Reports: None Gastrointestinal History: Reports: Cholelithiasis, Cirrhosis, Other (See Below) Other Gastrointestinal History: Had Paracentesis done twice November or December 2018 Genitourinary History: Reports: Prostate Disorder, Other (See Below) Other Genitourinary History: unable to see urologist- no insurance. Difficulty emptying his bladder. Stated "it takes forever to empty it." Musculoskeletal History: Reports: None Neurological History: Reports: None Psychiatric History: Reports: Addiction, Depression, Other (See Below) Other Psychiatric History: Alcoholic. seasonal depression Endocrine/Metabolic History: Reports: None Insulin Pump Model and Certified Veterinary Technician: None Hematologic History: Reports: None Immunologic History: Reports: None Oncologic (Cancer) History: Reports: None Dermatologic History: Reports: Other (See Below) Other Dermatologic History: claimed he has "acne all over his body" - Infectious Disease History Infectious Disease History: Reports: Chicken Pox - Past Surgical History Head Surgeries/Procedures: Reports: None HEENT Surgical History: Reports: None GI Surgical History: Reports: Cholecystectomy Male Surgical History: Reports: None Musculoskeletal Surgical History: Reports: None Social & Family History - Family History Family Medical History: Noncontributory - Tobacco Use Smoking Status *Q: Current Every Day Smoker Years of Tobacco use: 30 Packs/Tins Daily: 1 - Caffeine Use Caffeine Use: Reports: Coffee Other Caffeine Use: 1 cup coffee - Alcohol Use Days Per Week of Alcohol Use: 7 Number of Drinks Per Day: 20 Total Drinks Per Week: 140 - Recreational Drug Use Recreational Drug Use: Yes Drug Use in Last 12 Months: Yes Recreational Drug Type: Reports: Marijuana/Hashish Recreational Drug Use Frequency: Monthly - Living Situation & Occupation Living situation: Reports: Single Occupation: Unemployed H&P Review of Systems - Review of Systems: Review Of Systems: See Below General: Reports: Weakness, Fatigue. Denies: Fever, Chills, Decreased Appetite HEENT: Reports: Glasses, Visual Changes (blurry left eye vision ). Denies: Eye Pain, Headaches, Hearing Changes, Sore Throat, Vertigo Pulmonary: Reports: Cough. Denies: Shortness of Breath, Wheezing Cardiovascular: Reports: No Symptoms Gastrointestinal: Reports: No Symptoms. Denies: Constipation, Diarrhea, Nausea Genitourinary: Reports: No Symptoms Musculoskeletal: Reports: No Symptoms Skin: Reports: No Symptoms Psychiatric: Reports: No Symptoms. Denies: Anxiety, Agitation, Hallucinations, Suicidal Ideation, Homicidal Ideation Neurological: Reports: Tremors, Difficulty Walking. Denies: Confusion, Dizziness, Headache, Seizure, Syncope, Trouble Speaking, Change in Speech, Gait Disturbance Exam - Exam Exam: See Below - Vital Signs Vital Signs: Last Vital Signs Temp 97.1 F 12/06/19 15:50 Pulse 80 12/06/19 18:04 Resp 18 12/06/19 18:04 BP 159/99 H 12/06/19 18:04 Pulse Ox 97 12/06/19 18:04 Weight: 72.575 kg - Exam Quality Assessment: No: Supplemental Oxygen General: Alert, Oriented, Cooperative HEENT: EOMI, Hearing Intact, Mucosa Moist & [place], Pupils Equal, Pupils Reactive, TMs Clear, Other (no nystagmus appreciated ), PERRLA Neck: Supple, Trachea Midline Lungs: Clear to Auscultation, Normal Respiratory Effort Cardiovascular: Regular Rate, Regular Rhythm GI/Abdominal Exam: Soft, Non-Tender, No Organomegaly Back Exam: Normal Inspection, Full Range of Motion Extremities: Normal Inspection, Normal Range of Motion, Non-Tender Skin: Warm Neurological: Cranial Nerves Intact, Reflexes Equal Bilateral, Strength Equal Bilateral, Normal Speech. No: Normal Gait, Focal Deficit Neuro Extensive - Mental Status: Alert, Oriented x3, Normal Mood/Affect, Normal Cognition, Memory Intact Neuro Extensive - Motor, Sensory, Reflexes: Abnormal Gait. No: Normal Gait Psychiatric: Alert, Normal Affect, Normal Mood - Patient Data Lab Results Last 24 hrs: Laboratory Results - last 24 hr 12/06/19 12/06/19 12/06/19 Range/Units 16:04 16:04 16:04 WBC 4.14 (4.0-11.0) K/uL RBC 4.69 (4.50-5.90) M/uL Hgb 14.8 (13.0-17.0) g/dL Hct 43.0 (38.0-50.0) % MCV 91.7 (80.0-98.0) fL MCH 31.6 (27.0-32.0) pg MCHC 34.4 (31.0-37.0) g/dL RDW Std Deviation 47.9 (28.0-62.0) fl RDW Coeff of Qing 14 (11.0-15.0) % Plt Count 138 L (150-400) K/uL MPV 11.00 (7.40-12.00) fL Neut % (Auto) 51.4 (48.0-80.0) % Lymph % (Auto) 30.9 (16.0-40.0) % [place] % (Auto) 13.3 (0.0-15.0) % Eos % (Auto) 3.4 (0.0-7.0) % Baso % (Auto) 1.0 (0.0-1.5) % Neut # (Auto) 2.1 (1.4-5.7) K/uL Lymph # (Auto) 1.3 (0.6-2.4) K/uL [place] # (Auto) 0.6 (0.0-0.8) K/uL Eos # (Auto) 0.1 (0.0-0.7) K/uL Baso # (Auto) 0.0 (0.0-0.1) K/uL Nucleated RBC % 0.0 /100WBC Nucleated RBCs # 0 K/uL INR 1.18 Sodium 142 (136-148) mmol/L Potassium 3.4 L (3.5-5.1) mmol/L Chloride 103 (98-107) mmol/L Carbon Dioxide 22.8 (21.0-32.0) mmol/L BUN 8 (7.0-18.0) mg/dL Creatinine 0.9 (0.8-1.3) mg/dL Est Cr Clr Drug Dosing 94.08 mL/min Estimated GFR (MDRD) > 60.0 ml/min Glucose 89 (74-106) mg/dL Calcium 8.9 (8.5-10.1) mg/dL Magnesium 1.5 L (1.8-2.4) mg/dL Total Bilirubin 0.9 (0.2-1.0) mg/dL AST 85 H (15-37) IU/L ALT 45 (14-63) IU/L Alkaline Phosphatase 85 (46-116) U/L Creatine Kinase 192 (26-308) U/L Troponin I < 0.050 (0.000-0.056) ng/mL Total Protein 7.9 (6.4-8.2) g/dL Albumin 3.9 (3.4-5.0) g/dL Globulin 4.0 (2.6-4.0) g/dL Albumin/Globulin Ratio 1.0 (0.9-1.6) TSH 3rd Generation 1.89 (0.36-3.74) uIU/mL Urine Color Urine Appearance Urine pH (5.0-8.0) Ur Specific [place] (1.001-1.035) Urine Protein (NEGATIVE) mg/dL Urine Glucose (UA) (NEGATIVE) mg/dL Urine Ketones (NEGATIVE) mg/dL Urine Occult Blood (NEGATIVE) Urine Nitrite (NEGATIVE) Urine Bilirubin (NEGATIVE) Urine Urobilinogen (<2.0) EU/dL Ur Leukocyte Esterase (NEGATIVE) Urine RBC (0-2/HPF) Urine WBC (0-5/HPF) Ur Epithelial Cells (NONE-FEW) Urine Bacteria (NEGATIVE) Urine Opiates Screen (NEGATIVE) Ur Oxycodone Screen (NEGATIVE) Urine Methadone Screen (NEGATIVE) Ur Barbiturates Screen (NEGATIVE) Ur Phencyclidine Scrn (NEGATIVE) Ur Amphetamine Screen (NEGATIVE) U Methamphetamines Scrn (NEGATIVE) U Benzodiazepines Scrn (NEGATIVE) U Cocaine Metab Screen (NEGATIVE) U Marijuana (THC) Screen (NEGATIVE) Ethyl Alcohol 191 mg/dL SARS Virus RNA (PCR) (NEGATIVE) 12/06/19 12/06/19 12/06/19 Range/Units 17:44 18:10 18:10 WBC (4.0-11.0) K/uL RBC (4.50-5.90) M/uL Hgb (13.0-17.0) g/dL Hct (38.0-50.0) % MCV (80.0-98.0) fL MCH (27.0-32.0) pg MCHC (31.0-37.0) g/dL RDW Std Deviation (28.0-62.0) fl RDW Coeff of Qing (11.0-15.0) % Plt Count (150-400) K/uL MPV (7.40-12.00) fL Neut % (Auto) (48.0-80.0) % Lymph % (Auto) (16.0-40.0) % [place] % (Auto) (0.0-15.0) % Eos % (Auto) (0.0-7.0) % Baso % (Auto) (0.0-1.5) % Neut # (Auto) (1.4-5.7) K/uL Lymph # (Auto) (0.6-2.4) K/uL [place] # (Auto) (0.0-0.8) K/uL Eos # (Auto) (0.0-0.7) K/uL Baso # (Auto) (0.0-0.1) K/uL Nucleated RBC % /100WBC Nucleated RBCs # K/uL INR Sodium (136-148) mmol/L Potassium (3.5-5.1) mmol/L Chloride (98-107) mmol/L Carbon Dioxide (21.0-32.0) mmol/L BUN (7.0-18.0) mg/dL Creatinine (0.8-1.3) mg/dL Est Cr Clr Drug Dosing mL/min Estimated GFR (MDRD) ml/min Glucose (74-106) mg/dL Calcium (8.5-10.1) mg/dL Magnesium (1.8-2.4) mg/dL Total Bilirubin (0.2-1.0) mg/dL AST (15-37) IU/L ALT (14-63) IU/L Alkaline Phosphatase (46-116) U/L Creatine Kinase (26-308) U/L Troponin I (0.000-0.056) ng/mL Total Protein (6.4-8.2) g/dL Albumin (3.4-5.0) g/dL Globulin (2.6-4.0) g/dL Albumin/Globulin Ratio (0.9-1.6) TSH 3rd Generation (0.36-3.74) uIU/mL Urine Color YELLOW Urine Appearance CLEAR Urine pH 6.0 (5.0-8.0) Ur Specific [place] 1.025 (1.001-1.035) Urine Protein TRACE H (NEGATIVE) mg/dL Urine Glucose (UA) NEGATIVE (NEGATIVE) mg/dL Urine Ketones 15 H (NEGATIVE) mg/dL Urine Occult Blood NEGATIVE (NEGATIVE) Urine Nitrite NEGATIVE (NEGATIVE) Urine Bilirubin NEGATIVE (NEGATIVE) Urine Urobilinogen 1.0 (<2.0) EU/dL Ur Leukocyte Esterase NEGATIVE (NEGATIVE) Urine RBC 0-1 (0-2/HPF) Urine WBC 0-1 (0-5/HPF) Ur Epithelial Cells RARE (NONE-FEW) Urine Bacteria RARE (NEGATIVE) Urine Opiates Screen NEGATIVE (NEGATIVE) Ur Oxycodone Screen NEGATIVE (NEGATIVE) Urine Methadone Screen NEGATIVE (NEGATIVE) Ur Barbiturates Screen NEGATIVE (NEGATIVE) Ur Phencyclidine Scrn NEGATIVE (NEGATIVE) Ur Amphetamine Screen NEGATIVE (NEGATIVE) U Methamphetamines Scrn NEGATIVE (NEGATIVE) U Benzodiazepines Scrn NEGATIVE (NEGATIVE) U Cocaine Metab Screen NEGATIVE (NEGATIVE) U Marijuana (THC) Screen NEGATIVE (NEGATIVE) Ethyl Alcohol mg/dL SARS Virus RNA (PCR) NEGATIVE (NEGATIVE) Result Diagrams: 12/06/19 16:04 12/06/19 16:04 Sepsis Event Note - Evaluation Sepsis Screening Result: No Definite Risk - Focused Exam Vital Signs: Vital Signs Temp Pulse Resp BP Pulse Ox 12/06/19 18:04 80 18 159/99 H 97 12/06/19 17:49 77 17 150/97 H 98 12/06/19 17:34 58 L 16 159/97 H 97 12/06/19 17:19 55 L 163/96 H 96 12/06/19 17:04 64 17 162/97 H 96 12/06/19 16:20 72 18 152/104 H 96 12/06/19 16:04 81 17 157/96 H 96 12/06/19 15:50 97.1 F 81 18 150/104 H 96 Problem List Initiated/Reviewed/Updated: Yes Orders Last 24hrs: Active Orders 24 hr Category Date Time Status Patient Status [ADT] Routine ADT 12/06/19 18:24 Active EKG Documentation Completion [RC] STAT Care 12/06/19 16:09 Active CULTURE BLOOD [BC] Stat Lab 12/06/19 16:04 Received CULTURE BLOOD [BC] Stat Lab 12/06/19 16:52 Received Magnesium Sulfate/Water [Magnesium Sulfate in Water Med 12/06/19 18:30 Active Premix] 2 gm Premix Bag 1 bag IV ONETIME Sodium Chloride 0.9% [Saline Flush] Med 12/06/19 16:08 Active 10 ml FLUSH ASDIRECTED PRN Sodium Chloride 0.9% [Saline Flush] Med 12/06/19 16:08 Active 2.5 ml FLUSH ASDIRECTED PRN Blood Culture x2 Reflex Set [OM.PC] Stat Oth 12/06/19 16:10 Ordered Saline Lock Insert [OM.PC] Stat Oth 12/06/19 16:08 Ordered Medication Orders Magnesium Sulfate 2 gm/ Premix 50 mls @ 50 mls/hr IV ONETIME ONE Stop: 12/06/19 19:29 Sodium Chloride (Saline Flush) 10 ml FLUSH ASDIRECTED PRN PRN Reason: Keep Vein Open Last Admin: 12/06/19 16:21 Dose: 10 ml Documented by: ARMANDO Sodium Chloride (Saline Flush) 2.5 ml FLUSH ASDIRECTED PRN PRN Reason: Keep Vein Open Last Admin: 12/06/19 16:21 Dose: 2.5 ml Documented by: JIMMIEDNIC Assessment/Plan Comment:: Asessment: 1. Elevated ETOH levels with impending withdrawal 2. Acute change in vision w. concerns for TIA/Stroke in setting of ETOH abuse/Wernicke /Seizure 3. Chronic ETOH abuse 4. Hypokalemia 5. Hypomagnesia 6. history of ETOH induced seizures 7. Tobacco abuse Plan Admit to obs. Full code. I/o's per routine. Seizure precautions ; up with assist ance . Diet regular. (post thiamine infusion) DVT: SCD ..GI:pantoprazole Vitals per routine 1. Change in vision + fatigue: no signs of anemia ; head CT negative; MRI brain w+wo contrast ordered for AM Prolactin ordered to assess for possible recent seizure activity. Currently no focal deficits; subjective change in vision 2. Impending withdrawal: ativan-CIWAA protocol. Seizure precautions. Daily thiamine and folate supplementation. 3. Replace electrolytes PRN ; recheck labs in AM including Mag + phos 4. Continue to monitor and reassess as needed
[2019-12-06] MEDS ORDERED: LORazepam 2 MG/ML SDV IVPUSH PRN (19:01)
[2019-12-06] MEDS ORDERED: Potassium Chloride 20 MEQ Tab.ER PO ONE (19:30)
[2019-12-06] MEDS ORDERED: Pantoprazole 40 MG in Sodium Chloride 0.9% 10 ML IV SCH (20:00)
[2019-12-06] MEDS: Thiamine 100 MG in Sodium Chloride 0.9% 100 ML IV SCH (22:36)
[2019-12-06] MEDS: LORazepam 2 MG/ML SDV IVPUSH PRN (22:42)
[2019-12-07] MEDS: LORazepam 2 MG/ML SDV IVPUSH PRN (02:39)
[2019-12-07] MEDS ORDERED: Gadobenate Dimeglumine 529 MG/ML 20 ML SDV IVPUSH STA (07:22)
[2019-12-07 07:25] LABS: BLOOD UREA NITROGEN,BUN 7 mg/dL (7.0-18.0); CARBON DIOXIDE,CO2 21.4 mmol/L (21.0-32.0); CHLORIDE,CL 99 mmol/L (98-107); GLUCOSE RANDOM 79 mg/dL (74-106); POTASSIUM,K 3.8 mmol/L (3.5-5.1); SODIUM,NA 134 mmol/L (136-148)
--- NOTE | 2019-12-07 07:35 | PCM.PN ---
- General Info Date of Service: 12/07/19 - Patient Data Vitals - Most Recent: Last Vital Signs Temp 98.5 F 12/07/19 04:40 Pulse 76 12/07/19 04:40 Resp 17 12/07/19 04:40 BP 152/94 H 12/07/19 04:40 Pulse Ox 98 12/07/19 04:40 Weight - Most Recent: 74 kg Lab Results Last 24 Hours: Laboratory Results - last 24 hr 12/06/19 12/06/19 12/06/19 Range/Units 16:01 16:04 16:04 WBC 4.14 (4.0-11.0) K/uL RBC 4.69 (4.50-5.90) M/uL Hgb 14.8 (13.0-17.0) g/dL Hct 43.0 (38.0-50.0) % MCV 91.7 (80.0-98.0) fL MCH 31.6 (27.0-32.0) pg MCHC 34.4 (31.0-37.0) g/dL RDW Std Deviation 47.9 (28.0-62.0) fl RDW Coeff of Qing 14 (11.0-15.0) % Plt Count 138 L (150-400) K/uL MPV 11.00 (7.40-12.00) fL Neut % (Auto) 51.4 (48.0-80.0) % Lymph % (Auto) 30.9 (16.0-40.0) % [place] % (Auto) 13.3 (0.0-15.0) % Eos % (Auto) 3.4 (0.0-7.0) % Baso % (Auto) 1.0 (0.0-1.5) % Neut # (Auto) 2.1 (1.4-5.7) K/uL Lymph # (Auto) 1.3 (0.6-2.4) K/uL [place] # (Auto) 0.6 (0.0-0.8) K/uL Eos # (Auto) 0.1 (0.0-0.7) K/uL Baso # (Auto) 0.0 (0.0-0.1) K/uL Nucleated RBC % 0.0 /100WBC Nucleated RBCs # 0 K/uL INR 1.18 Sodium (136-148) mmol/L Potassium (3.5-5.1) mmol/L Chloride (98-107) mmol/L Carbon Dioxide (21.0-32.0) mmol/L BUN (7.0-18.0) mg/dL Creatinine (0.8-1.3) mg/dL Est Cr Clr Drug Dosing mL/min Estimated GFR (MDRD) ml/min Glucose (74-106) mg/dL Calcium (8.5-10.1) mg/dL Phosphorus (2.6-4.7) mg/dL Magnesium (1.8-2.4) mg/dL Total Bilirubin (0.2-1.0) mg/dL AST (15-37) IU/L ALT (14-63) IU/L Alkaline Phosphatase (46-116) U/L Creatine Kinase (26-308) U/L Troponin I (0.000-0.056) ng/mL Total Protein (6.4-8.2) g/dL Albumin (3.4-5.0) g/dL Globulin (2.6-4.0) g/dL Albumin/Globulin Ratio (0.9-1.6) TSH 3rd Generation (0.36-3.74) uIU/mL Prolactin 5.1 ng/mL Urine Color Urine Appearance Urine pH (5.0-8.0) Ur Specific [place] (1.001-1.035) Urine Protein (NEGATIVE) mg/dL Urine Glucose (UA) (NEGATIVE) mg/dL Urine Ketones (NEGATIVE) mg/dL Urine Occult Blood (NEGATIVE) Urine Nitrite (NEGATIVE) Urine Bilirubin (NEGATIVE) Urine Urobilinogen (<2.0) EU/dL Ur Leukocyte Esterase (NEGATIVE) Urine RBC (0-2/HPF) Urine WBC (0-5/HPF) Ur Epithelial Cells (NONE-FEW) Urine Bacteria (NEGATIVE) Urine Opiates Screen (NEGATIVE) Ur Oxycodone Screen (NEGATIVE) Urine Methadone Screen (NEGATIVE) Ur Barbiturates Screen (NEGATIVE) Ur Phencyclidine Scrn (NEGATIVE) Ur Amphetamine Screen (NEGATIVE) U Methamphetamines Scrn (NEGATIVE) U Benzodiazepines Scrn (NEGATIVE) U Cocaine Metab Screen (NEGATIVE) U Marijuana (THC) Screen (NEGATIVE) Ethyl Alcohol mg/dL SARS Virus RNA (PCR) (NEGATIVE) 12/06/19 12/06/19 12/06/19 Range/Units 16:04 17:44 18:10 WBC (4.0-11.0) K/uL RBC (4.50-5.90) M/uL Hgb (13.0-17.0) g/dL Hct (38.0-50.0) % MCV (80.0-98.0) fL MCH (27.0-32.0) pg MCHC (31.0-37.0) g/dL RDW Std Deviation (28.0-62.0) fl RDW Coeff of Qing (11.0-15.0) % Plt Count (150-400) K/uL MPV (7.40-12.00) fL Neut % (Auto) (48.0-80.0) % Lymph % (Auto) (16.0-40.0) % [place] % (Auto) (0.0-15.0) % Eos % (Auto) (0.0-7.0) % Baso % (Auto) (0.0-1.5) % Neut # (Auto) (1.4-5.7) K/uL Lymph # (Auto) (0.6-2.4) K/uL [place] # (Auto) (0.0-0.8) K/uL Eos # (Auto) (0.0-0.7) K/uL Baso # (Auto) (0.0-0.1) K/uL Nucleated RBC % /100WBC Nucleated RBCs # K/uL INR Sodium 142 (136-148) mmol/L Potassium 3.4 L (3.5-5.1) mmol/L Chloride 103 (98-107) mmol/L Carbon Dioxide 22.8 (21.0-32.0) mmol/L BUN 8 (7.0-18.0) mg/dL Creatinine 0.9 (0.8-1.3) mg/dL Est Cr Clr Drug Dosing 94.08 mL/min Estimated GFR (MDRD) > 60.0 ml/min Glucose 89 (74-106) mg/dL Calcium 8.9 (8.5-10.1) mg/dL Phosphorus (2.6-4.7) mg/dL Magnesium 1.5 L (1.8-2.4) mg/dL Total Bilirubin 0.9 (0.2-1.0) mg/dL AST 85 H (15-37) IU/L ALT 45 (14-63) IU/L Alkaline Phosphatase 85 (46-116) U/L Creatine Kinase 192 (26-308) U/L Troponin I < 0.050 (0.000-0.056) ng/mL Total Protein 7.9 (6.4-8.2) g/dL Albumin 3.9 (3.4-5.0) g/dL Globulin 4.0 (2.6-4.0) g/dL Albumin/Globulin Ratio 1.0 (0.9-1.6) TSH 3rd Generation 1.89 (0.36-3.74) uIU/mL Prolactin ng/mL Urine Color YELLOW Urine Appearance CLEAR Urine pH 6.0 (5.0-8.0) Ur Specific [place] 1.025 (1.001-1.035) Urine Protein TRACE H (NEGATIVE) mg/dL Urine Glucose (UA) NEGATIVE (NEGATIVE) mg/dL Urine Ketones 15 H (NEGATIVE) mg/dL Urine Occult Blood NEGATIVE (NEGATIVE) Urine Nitrite NEGATIVE (NEGATIVE) Urine Bilirubin NEGATIVE (NEGATIVE) Urine Urobilinogen 1.0 (<2.0) EU/dL Ur Leukocyte Esterase NEGATIVE (NEGATIVE) Urine RBC 0-1 (0-2/HPF) Urine WBC 0-1 (0-5/HPF) Ur Epithelial Cells RARE (NONE-FEW) Urine Bacteria RARE (NEGATIVE) Urine Opiates Screen (NEGATIVE) Ur Oxycodone Screen (NEGATIVE) Urine Methadone Screen (NEGATIVE) Ur Barbiturates Screen (NEGATIVE) Ur Phencyclidine Scrn (NEGATIVE) Ur Amphetamine Screen (NEGATIVE) U Methamphetamines Scrn (NEGATIVE) U Benzodiazepines Scrn (NEGATIVE) U Cocaine Metab Screen (NEGATIVE) U Marijuana (THC) Screen (NEGATIVE) Ethyl Alcohol 191 mg/dL SARS Virus RNA (PCR) NEGATIVE (NEGATIVE) 12/06/19 12/07/19 12/07/19 Range/Units 18:10 06:11 06:11 WBC 4.97 (4.0-11.0) K/uL RBC 4.36 L (4.50-5.90) M/uL Hgb 13.4 (13.0-17.0) g/dL Hct 39.8 (38.0-50.0) % MCV 91.3 (80.0-98.0) fL MCH 30.7 (27.0-32.0) pg MCHC 33.7 (31.0-37.0) g/dL RDW Std Deviation 47.1 (28.0-62.0) fl RDW Coeff of Qing 14 (11.0-15.0) % Plt Count 100 L (150-400) K/uL MPV 12.20 H (7.40-12.00) fL Neut % (Auto) 51.1 (48.0-80.0) % Lymph % (Auto) 30.0 (16.0-40.0) % [place] % (Auto) 14.7 (0.0-15.0) % Eos % (Auto) 3.6 (0.0-7.0) % Baso % (Auto) 0.6 (0.0-1.5) % Neut # (Auto) 2.5 (1.4-5.7) K/uL Lymph # (Auto) 1.5 (0.6-2.4) K/uL [place] # (Auto) 0.7 (0.0-0.8) K/uL Eos # (Auto) 0.2 (0.0-0.7) K/uL Baso # (Auto) 0.0 (0.0-0.1) K/uL Nucleated RBC % 0.0 /100WBC Nucleated RBCs # 0 K/uL INR Sodium 134 L (136-148) mmol/L Potassium 3.8 (3.5-5.1) mmol/L Chloride 99 (98-107) mmol/L Carbon Dioxide 21.4 (21.0-32.0) mmol/L BUN 7 (7.0-18.0) mg/dL Creatinine 0.7 L (0.8-1.3) mg/dL Est Cr Clr Drug Dosing 123.33 mL/min Estimated GFR (MDRD) > 60.0 ml/min Glucose 79 (74-106) mg/dL Calcium 8.7 (8.5-10.1) mg/dL Phosphorus 2.6 (2.6-4.7) mg/dL Magnesium 1.7 L (1.8-2.4) mg/dL Total Bilirubin 2.3 H (0.2-1.0) mg/dL AST 76 H (15-37) IU/L ALT 40 (14-63) IU/L Alkaline Phosphatase 81 (46-116) U/L Creatine Kinase (26-308) U/L Troponin I (0.000-0.056) ng/mL Total Protein 7.4 (6.4-8.2) g/dL Albumin 3.8 (3.4-5.0) g/dL Globulin 3.6 (2.6-4.0) g/dL Albumin/Globulin Ratio 1.1 (0.9-1.6) TSH 3rd Generation (0.36-3.74) uIU/mL Prolactin ng/mL Urine Color Urine Appearance Urine pH (5.0-8.0) Ur Specific [place] (1.001-1.035) Urine Protein (NEGATIVE) mg/dL Urine Glucose (UA) (NEGATIVE) mg/dL Urine Ketones (NEGATIVE) mg/dL Urine Occult Blood (NEGATIVE) Urine Nitrite (NEGATIVE) Urine Bilirubin (NEGATIVE) Urine Urobilinogen (<2.0) EU/dL Ur Leukocyte Esterase (NEGATIVE) Urine RBC (0-2/HPF) Urine WBC (0-5/HPF) Ur Epithelial Cells (NONE-FEW) Urine Bacteria (NEGATIVE) Urine Opiates Screen NEGATIVE (NEGATIVE) Ur Oxycodone Screen NEGATIVE (NEGATIVE) Urine Methadone Screen NEGATIVE (NEGATIVE) Ur Barbiturates Screen NEGATIVE (NEGATIVE) Ur Phencyclidine Scrn NEGATIVE (NEGATIVE) Ur Amphetamine Screen NEGATIVE (NEGATIVE) U Methamphetamines Scrn NEGATIVE (NEGATIVE) U Benzodiazepines Scrn NEGATIVE (NEGATIVE) U Cocaine Metab Screen NEGATIVE (NEGATIVE) U Marijuana (THC) Screen NEGATIVE (NEGATIVE) Ethyl Alcohol mg/dL SARS Virus RNA (PCR) (NEGATIVE) Med Orders - Current: Current Medications Thiamine HCl 100 mg/ Sodium (Chloride) 101 mls @ 202 mls/hr IV DAILY JOE Last Admin: 12/06/19 22:36 Dose: 202 mls/hr Documented by: Pantoprazole Sodium 40 mg/ (Sodium Chloride) 10 mls @ 300 mls/hr IV Q24H JOE Last Admin: 12/06/19 20:24 Dose: 300 mls/hr Documented by: Lorazepam (Ativan) 0 mg IVPUSH Q4H PRN; Protocol PRN Reason: Withdrawal Symptoms Last Admin: 12/07/19 02:39 Dose: 2 mg Documented by: Sodium Chloride (Saline Flush) 10 ml FLUSH ASDIRECTED PRN PRN Reason: Keep Vein Open Last Admin: 12/06/19 16:21 Dose: 10 ml Documented by: Sodium Chloride (Saline Flush) 2.5 ml FLUSH ASDIRECTED PRN PRN Reason: Keep Vein Open Last Admin: 12/06/19 16:21 Dose: 2.5 ml Documented by: Discontinued Medications Gadobenate Dimeglumine (Multihance) 20 ml IVPUSH ONETIME STA Stop: 12/07/19 07:23 Last Admin: 12/07/19 07:22 Dose: 14 ml Documented by: Sodium Chloride (Normal Saline) 1,000 mls @ 999 mls/hr IV .Bolus ONE Stop: 12/06/19 17:08 Last Admin: 12/06/19 16:21 Dose: 999 mls/hr Documented by: Magnesium Sulfate 2 gm/ Premix 50 mls @ 50 mls/hr IV ONETIME ONE Stop: 12/06/19 19:29 Last Admin: 12/06/19 19:12 Dose: 50 mls/hr Documented by: Lorazepam (Ativan) 0 mg IVPUSH Q4H PRN; Protocol PRN Reason: Agitation Potassium Chloride (Klor-Con M20) 40 meq PO ONETIME ONE Stop: 12/06/19 19:31 Last Admin: 12/06/19 19:41 Dose: 40 meq Documented by: Sepsis Event Note - Evaluation Sepsis Screening Result: No Definite Risk - Focused Exam Vital Signs: Vital Signs Temp Pulse Resp BP Pulse Ox 12/07/19 04:40 98.5 F 76 17 152/94 H 98 12/06/19 23:41 98.7 F 73 18 137/73 97 12/06/19 21:00 99.2 F 84 16 145/90 H 99 12/06/19 19:42 97.3 F 78 18 144/97 H 97 - My Orders Last 24 Hours: My Active Orders 12/06/19 18:58 Intake and Output [RC] Q12H Seizure Precautions [OM.PC] Routine Code Status [Resuscitation Status] Routine 12/06/19 19:00 Telemetry Monitoring [Cardiac Monitoring] [RC] Q8H Up With Assistance [RC] ASDIRECTED 12/06/19 19:01 CIWAA Assessment [RC] Q4H 12/06/19 19:02 Brain wo Cont [MR] Routine 12/06/19 19:12 Brain w wo Cont [MR] Urgent 12/06/19 19:15 Thiamine [Vitamin B-1] 100 mg Sodium Chloride 0.9% [Normal Saline] 100 ml IV DAILY 12/06/19 19:17 Antiembolic Devices [RC] PER UNIT ROUTINE Sequential Compression Device [OM.PC] Routine 12/06/19 19:33 Vital Signs [RC] PER UNIT ROUTINE 12/06/19 20:00 Pantoprazole [ProTONIX IV] 40 mg Sodium Chloride 0.9% [Normal Saline] 10 ml IV Q24H 12/08/19 05:11 CBC WITH AUTO DIFF [HEME] AM COMPREHENSIVE METABOLIC PN,CMP [CHEM] AM MAGNESIUM [CHEM] AM PHOSPHORUS [CHEM] AM 12/09/19 05:11 CBC WITH AUTO DIFF [HEME] AM COMPREHENSIVE METABOLIC PN,CMP [CHEM] AM MAGNESIUM [CHEM] AM PHOSPHORUS [CHEM] AM - Plan Plan:: Asessment: 1. Elevated ETOH levels with impending withdrawal 2. Acute change in vision w. concerns for TIA/Stroke in setting of ETOH abuse/Wernicke /Seizure 3. Chronic ETOH abuse 4. Hypokalemia 5. Hypomagnesia 6. history of ETOH induced seizures 7. Tobacco abuse Plan Admit to obs. Full code. I/o's per routine. Seizure precautions ; up with assistance . Diet regular. (post thiamine infusion) DVT: SCD ..GI:pantoprazole Vitals per routine 1. Change in vision + fatigue: no signs of anemia ; head CT negative; MRI brain w+wo contrast ordered for AM Prolactin ordered to assess for possible recent seizure activity. Currently no focal deficits; subjective change in vision 2. Impending withdrawal: ativan-CIWAA protocol. Seizure precautions. Daily thiamine and folate supplementation. 3. Replace electrolytes PRN ; recheck labs in AM including Mag + phos 4. Continue to monitor and reassess as needed
[2019-12-07] MEDS ORDERED: Magnesium Sulfate/Water 2 GM in Premix Bag 1 BAG IV ONE (07:38)
--- NOTE | 2019-12-07 08:13 | MR ---
Indication: Changes in vision. Chronic ethanol abuse. Technique: Noncontrast sagittal T1, axial FLAIR, T2, diffusion weighted sequences with high-resolution coronal FLAIR, SWI, T2 and T1 weighted sequences are provided. Supplemental postcontrast axial coronal T1 weighted sequences are provided after administration of 14 cc MultiHance gadolinium based IV contrast. Comparison: CT 12/06/2019 Findings: Motion artifact degrades image quality and results in suboptimal evaluation. The ventricles, sulci and gyri are normal size, shape and contour for age. The midline structures are centrally located with no evidence of shift. There are no suspicious intra or extra-axial fluid collections. No region of restricted diffusion. Mild parenchymal volume loss. A few small discrete foci of T2 prolongation are present in the subcortical white matter, nonspecific but most commonly noted in the setting of migraines, hypertension, diabetes, or collagen vascular disease. The hippocampal formations grossly bilaterally appear symmetric with no evidence of abnormal signal within the substance. Ponce-white differentiation appears well maintained. No suspicious regions of abnormal contrast enhancement. Expected flow voids in the cavernous carotids and basilar artery. Mild polypoid mucosal thickening the anterior ethmoid air cells and left maxillary sinus.. Impression: 1. No evidence of acute intracranial abnormality. 2. Mild parenchymal volume loss. 3. Motion artifact degrades image quality and results in suboptimal evaluation. Dictated by Sabino Staley MD @ Dec 07 2019 8:06AM Signed by Dr. Sabino Staley @ Dec 07 2019 8:13AM
[2019-12-07] MEDS ORDERED: Folic Acid/Vitamin B Complex With C Cap PO SCH (09:00)
[2019-12-07 09:38] VITALS: BP 154/92; PULSE 65
[2019-12-07] MEDS: Thiamine 100 MG in Sodium Chloride 0.9% 100 ML IV SCH (10:01)
[2019-12-07] MEDS ORDERED: Sodium Chloride 0.9% 1,000 ML IV ONE ×2 (10:19→12:44)
--- NOTE | 2019-12-07 12:01 | US ---
Limited abdominal ultrasound: Multiple real-time images of the upper right abdomen were obtained. Comparison: No prior abdominal imaging is available. Findings: Cyst is noted within the liver anteriorly measuring 3.0 cm. Liver is generous in size and shows echogenicity compatible with fatty infiltration. Previous cholecystectomy is noted. No biliary duct dilatation is seen. Right kidney shows no hydronephrosis or mass and has a length of 12.9 cm. Inferior vena cava is patent. Proximal and mid aorta shows no aneurysm. Distal aorta not visualized due to bowel gas. Pancreas that is seen appears unremarkable. Impression: 1. Echogenic liver compatible with fatty infiltration. Liver is also generous in size. 2. Previous cholecystectomy with no biliary duct dilatation. 3. Cyst within the liver. 4. No additional abnormality is appreciated. Diagnostic code #3 This report was dictated in MDT
--- NOTE | 2019-12-07 12:43 | PCM.DCSUM1 ---
<Yi Jackson - Last Filed: 12/07/19 21:00> Discharge Summary - Hospital Course Free Text/Narrative:: Patient is a 54-year-old male with a significant past medical history of alcohol induced seizures presenting to ED yesterday for increasing fatigue and left eye blurriness. States for the past week he has been drinking multiple 12 ounces of alcohol including vodka and beer; states worsening vision in left eye for the past week however worsening fatigue in the past 2 days prompted him to present to the ED. ED course mild hypomagnesemia negative UA head CT negative for any acute processes. Patient was admitted for concerns of a TIA versus stroke. Started on aspirin. elevated AMBROSE; pt. however lucid and mentating well Hospital course: brain MRI did not show any acute signs of ischemic foci. Abdominal ultrasound ordered secondary to history of continues alcohol abuse: Fatty liver appreciated with with a cyst formation; pt states this is chronic from previous transfer and ETOH abuse Discussed at length with patient need to discontinue alcohol use; patient howev er deferred recommendation and requested discharge. Patient endorsed vision improving and denies any hallucinations and or suicidal homicidal ideation. Patient was recommended and discharged with aspirin and daily statin and advised to discontinue alcohol use. Daily MV also recommended Patient requesting discharge; ambulation was monitored and patient was stable. Advised not to drive. - Discharge Data Discharge Date: 12/07/19 Discharge Disposition: Home, Self-Care 01 Condition: Fair - Referral to Home Health Primary Care Physician: PCP None - Patient Instructions Diet: Heart Healthy Diet, No Alcoholic Beverages Driving: Do Not Drive Notify Provider of: Fever, Nausea and/or Vomiting - Discharge Plan Prescriptions/Med Rec: Aspirin [Aspirin EC] 81 mg PO DAILY 14 Days #14 tablet. Simvastatin 20 mg PO DAILY 30 Days #30 tablet Home Medications: Home Meds Aspirin [Aspirin EC] 81 mg PO DAILY 14 Days #14 tablet. 12/07/19 [Rx] Folic Acid/Vitamin B Comp W-C [Renal Caps Softgel] 1 cap PO DAILY cap 12/07/19 [Rx] Simvastatin 20 mg PO DAILY 30 Days #30 tablet 12/07/19 [Rx] Oxygen Therapy Mode: Room Air Patient Handouts: Blurred Vision, Adult, Aspirin, ASA chewable tablets, Alcohol Use Disorder, Alcohol Abuse and Dependence Information, Adult, Simvastatin tablets Referrals: Abida Sawyer NP [Nurse Practitioner] - 12/17/19 11:00 am - Discharge Summary/Plan Comment DC Time >30 min.: No - Patient Data Vitals - Most Recent: Last Vital Signs Temp 97.7 F 12/07/19 07:30 Pulse 65 12/07/19 07:30 Resp 17 12/07/19 07:30 BP 154/92 H 12/07/19 07:30 Pulse Ox 98 12/07/19 07:30 Weight - Most Recent: 74 kg I&O - Last 24 hours: Intake & Output 12/06/19 12/07/19 12/07/19 22:59 06:59 14:59 Intake Total 300 Output Total 1020 Balance -720 Lab Results - Last 24 hrs: Laboratory Results - last 24 hr 12/06/19 12/06/19 12/06/19 Range/Units 16:01 16:04 16:04 WBC 4.14 (4.0-11.0) K/uL RBC 4.69 (4.50-5.90) M/uL Hgb 14.8 (13.0-17.0) g/dL Hct 43.0 (38.0-50.0) % MCV 91.7 (80.0-98.0) fL MCH 31.6 (27.0-32.0) pg MCHC 34.4 (31.0-37.0) g/dL RDW Std Deviation 47.9 (28.0-62.0) fl RDW Coeff of Qing 14 (11.0-15.0) % Plt Count 138 L (150-400) K/uL MPV 11.00 (7.40-12.00) fL Neut % (Auto) 51.4 (48.0-80.0) % Lymph % (Auto) 30.9 (16.0-40.0) % [place] % (Auto) 13.3 (0.0-15.0) % Eos % (Auto) 3.4 (0.0-7.0) % Baso % (Auto) 1.0 (0.0-1.5) % Neut # (Auto) 2.1 (1.4-5.7) K/uL Lymph # (Auto) 1.3 (0.6-2.4) K/uL [place] # (Auto) 0.6 (0.0-0.8) K/uL Eos # (Auto) 0.1 (0.0-0.7) K/uL Baso # (Auto) 0.0 (0.0-0.1) K/uL Nucleated RBC % 0.0 /100WBC Nucleated RBCs # 0 K/uL INR 1.18 Sodium (136-148) mmol/L Potassium (3.5-5.1) mmol/L Chloride (98-107) mmol/L Carbon Dioxide (21.0-32.0) mmol/L BUN (7.0-18.0) mg/dL Creatinine (0.8-1.3) mg/dL Est Cr Clr Drug Dosing mL/min Estimated GFR (MDRD) ml/min Glucose (74-106) mg/dL Calcium (8.5-10.1) mg/dL Phosphorus (2.6-4.7) mg/dL Magnesium (1.8-2.4) mg/dL Total Bilirubin (0.2-1.0) mg/dL AST (15-37) IU/L ALT (14-63) IU/L Alkaline Phosphatase (46-116) U/L Creatine Kinase (26-308) U/L Troponin I (0.000-0.056) ng/mL Total Protein (6.4-8.2) g/dL Albumin (3.4-5.0) g/dL Globulin (2.6-4.0) g/dL Albumin/Globulin Ratio (0.9-1.6) TSH 3rd Generation (0.36-3.74) uIU/mL Prolactin 5.1 ng/mL Urine Color Urine Appearance Urine pH (5.0-8.0) Ur Specific [place] (1.001-1.035) Urine Protein (NEGATIVE) mg/dL Urine Glucose (UA) (NEGATIVE) mg/dL Urine Ketones (NEGATIVE) mg/dL Urine Occult Blood (NEGATIVE) Urine Nitrite (NEGATIVE) Urine Bilirubin (NEGATIVE) Urine Urobilinogen (<2.0) EU/dL Ur Leukocyte Esterase (NEGATIVE) Urine RBC (0-2/HPF) Urine WBC (0-5/HPF) Ur Epithelial Cells (NONE-FEW) Urine Bacteria (NEGATIVE) Urine Opiates Screen (NEGATIVE) Ur Oxycodone Screen (NEGATIVE) Urine Methadone Screen (NEGATIVE) Ur Barbiturates Screen (NEGATIVE) Ur Phencyclidine Scrn (NEGATIVE) Ur Amphetamine Screen (NEGATIVE) U Methamphetamines Scrn (NEGATIVE) U Benzodiazepines Scrn (NEGATIVE) U Cocaine Metab Screen (NEGATIVE) U Marijuana (THC) Screen (NEGATIVE) Ethyl Alcohol mg/dL SARS Virus RNA (PCR) (NEGATIVE) 12/06/19 12/06/19 12/06/19 Range/Units 16:04 17:44 18:10 WBC (4.0-11.0) K/uL RBC (4.50-5.90) M/uL Hgb (13.0-17.0) g/dL Hct (38.0-50.0) % MCV (80.0-98.0) fL MCH (27.0-32.0) pg MCHC (31.0-37.0) g/dL RDW Std Deviation (28.0-62.0) fl RDW Coeff of Qing (11.0-15.0) % Plt Count (150-400) K/uL MPV (7.40-12.00) fL Neut % (Auto) (48.0-80.0) % Lymph % (Auto) (16.0-40.0) % [place] % (Auto) (0.0-15.0) % Eos % (Auto) (0.0-7.0) % Baso % (Auto) (0.0-1.5) % Neut # (Auto) (1.4-5.7) K/uL Lymph # (Auto) (0.6-2.4) K/uL [place] # (Auto) (0.0-0.8) K/uL Eos # (Auto) (0.0-0.7) K/uL Baso # (Auto) (0.0-0.1) K/uL Nucleated RBC % /100WBC Nucleated RBCs # K/uL INR Sodium 142 (136-148) mmol/L Potassium 3.4 L (3.5-5.1) mmol/L Chloride 103 (98-107) mmol/L Carbon Dioxide 22.8 (21.0-32.0) mmol/L BUN 8 (7.0-18.0) mg/dL Creatinine 0.9 (0.8-1.3) mg/dL Est Cr Clr Drug Dosing 94.08 mL/min Estimated GFR (MDRD) > 60.0 ml/min Glucose 89 (74-106) mg/dL Calcium 8.9 (8.5-10.1) mg/dL Phosphorus (2.6-4.7) mg/dL Magnesium 1.5 L (1.8-2.4) mg/dL Total Bilirubin 0.9 (0.2-1.0) mg/dL AST 85 H (15-37) IU/L ALT 45 (14-63) IU/L Alkaline Phosphatase 85 (46-116) U/L Creatine Kinase 192 (26-308) U/L Troponin I < 0.050 (0.000-0.056) ng/mL Total Protein 7.9 (6.4-8.2) g/dL Albumin 3.9 (3.4-5.0) g/dL Globulin 4.0 (2.6-4.0) g/dL Albumin/Globulin Ratio 1.0 (0.9-1.6) TSH 3rd Generation 1.89 (0.36-3.74) uIU/mL Prolactin ng/mL Urine Color YELLOW Urine Appearance CLEAR Urine pH 6.0 (5.0-8.0) Ur Specific [place] 1.025 (1.001-1.035) Urine Protein TRACE H (NEGATIVE) mg/dL Urine Glucose (UA) NEGATIVE (NEGATIVE) mg/dL Urine Ketones 15 H (NEGATIVE) mg/dL Urine Occult Blood NEGATIVE (NEGATIVE) Urine Nitrite NEGATIVE (NEGATIVE) Urine Bilirubin NEGATIVE (NEGATIVE) Urine Urobilinogen 1.0 (<2.0) EU/dL Ur Leukocyte Esterase NEGATIVE (NEGATIVE) Urine RBC 0-1 (0-2/HPF) Urine WBC 0-1 (0-5/HPF) Ur Epithelial Cells RARE (NONE-FEW) Urine Bacteria RARE (NEGATIVE) Urine Opiates Screen (NEGATIVE) Ur Oxycodone Screen (NEGATIVE) Urine Methadone Screen (NEGATIVE) Ur Barbiturates Screen (NEGATIVE) Ur Phencyclidine Scrn (NEGATIVE) Ur Amphetamine Screen (NEGATIVE) U Methamphetamines Scrn (NEGATIVE) U Benzodiazepines Scrn (NEGATIVE) U Cocaine Metab Screen (NEGATIVE) U Marijuana (THC) Screen (NEGATIVE) Ethyl Alcohol 191 mg/dL SARS Virus RNA (PCR) NEGATIVE (NEGATIVE) 12/06/19 12/07/19 12/07/19 Range/Units 18:10 06:11 06:11 WBC 4.97 (4.0-11.0) K/uL RBC 4.36 L (4.50-5.90) M/uL Hgb 13.4 (13.0-17.0) g/dL Hct 39.8 (38.0-50.0) % MCV 91.3 (80.0-98.0) fL MCH 30.7 (27.0-32.0) pg MCHC 33.7 (31.0-37.0) g/dL RDW Std Deviation 47.1 (28.0-62.0) fl RDW Coeff of Qing 14 (11.0-15.0) % Plt Count 100 L (150-400) K/uL MPV 12.20 H (7.40-12.00) fL Neut % (Auto) 51.1 (48.0-80.0) % Lymph % (Auto) 30.0 (16.0-40.0) % [place] % (Auto) 14.7 (0.0-15.0) % Eos % (Auto) 3.6 (0.0-7.0) % Baso % (Auto) 0.6 (0.0-1.5) % Neut # (Auto) 2.5 (1.4-5.7) K/uL Lymph # (Auto) 1.5 (0.6-2.4) K/uL [place] # (Auto) 0.7 (0.0-0.8) K/uL Eos # (Auto) 0.2 (0.0-0.7) K/uL Baso # (Auto) 0.0 (0.0-0.1) K/uL Nucleated RBC % 0.0 /100WBC Nucleated RBCs # 0 K/uL INR Sodium 134 L (136-148) mmol/L Potassium 3.8 (3.5-5.1) mmol/L Chloride 99 (98-107) mmol/L Carbon Dioxide 21.4 (21.0-32.0) mmol/L BUN 7 (7.0-18.0) mg/dL Creatinine 0.7 L (0.8-1.3) mg/dL Est Cr Clr Drug Dosing 123.33 mL/min Estimated GFR (MDRD) > 60.0 ml/min Glucose 79 (74-106) mg/dL Calcium 8.7 (8.5-10.1) mg/dL Phosphorus 2.6 (2.6-4.7) mg/dL Magnesium 1.7 L (1.8-2.4) mg/dL Total Bilirubin 2.3 H (0.2-1.0) mg/dL AST 76 H (15-37) IU/L ALT 40 (14-63) IU/L Alkaline Phosphatase 81 (46-116) U/L Creatine Kinase (26-308) U/L Troponin I (0.000-0.056) ng/mL Total Protein 7.4 (6.4-8.2) g/dL Albumin 3.8 (3.4-5.0) g/dL Globulin 3.6 (2.6-4.0) g/dL Albumin/Globulin Ratio 1.1 (0.9-1.6) TSH 3rd Generation (0.36-3.74) uIU/mL Prolactin ng/mL Urine Color Urine Appearance Urine pH (5.0-8.0) Ur Specific [place] (1.001-1.035) Urine Protein (NEGATIVE) mg/dL Urine Glucose (UA) (NEGATIVE) mg/dL Urine Ketones (NEGATIVE) mg/dL Urine Occult Blood (NEGATIVE) Urine Nitrite (NEGATIVE) Urine Bilirubin (NEGATIVE) Urine Urobilinogen (<2.0) EU/dL Ur Leukocyte Esterase (NEGATIVE) Urine RBC (0-2/HPF) Urine WBC (0-5/HPF) Ur Epithelial Cells (NONE-FEW) Urine Bacteria (NEGATIVE) Urine Opiates Screen NEGATIVE (NEGATIVE) Ur Oxycodone Screen NEGATIVE (NEGATIVE) Urine Methadone Screen NEGATIVE (NEGATIVE) Ur Barbiturates Screen NEGATIVE (NEGATIVE) Ur Phencyclidine Scrn NEGATIVE (NEGATIVE) Ur Amphetamine Screen NEGATIVE (NEGATIVE) U Methamphetamines Scrn NEGATIVE (NEGATIVE) U Benzodiazepines Scrn NEGATIVE (NEGATIVE) U Cocaine Metab Screen NEGATIVE (NEGATIVE) U Marijuana (THC) Screen NEGATIVE (NEGATIVE) Ethyl Alcohol mg/dL SARS Virus RNA (PCR) (NEGATIVE) Med Orders - Current: Current Medications Thiamine HCl 100 mg/ Sodium (Chloride) 101 mls @ 202 mls/hr IV DAILY JOE Last Admin: 12/07/19 10:01 Dose: 202 mls/hr Documented by: Pantoprazole Sodium 40 mg/ (Sodium Chloride) 10 mls @ 300 mls/hr IV Q24H JOE Last Admin: 12/06/19 20:24 Dose: 300 mls/hr Documented by: Lorazepam (Ativan) 0 mg IVPUSH Q4H PRN; Protocol PRN Reason: Withdrawal Symptoms Last Admin: 12/07/19 02:39 Dose: 2 mg Documented by: Multivit/Ca Carb/B Cmplx/FA/Prenat (Renal Caps Softgel) 1 cap PO DAILY JOE Last Admin: 12/07/19 08:44 Dose: 1 cap Documented by: Sodium Chloride (Saline Flush) 10 ml FLUSH ASDIRECTED PRN PRN Reason: Keep Vein Open Last Admin: 12/06/19 16:21 Dose: 10 ml Documented by: Sodium Chloride (Saline Flush) 2.5 ml FLUSH ASDIRECTED PRN PRN Reason: Keep Vein Open Last Admin: 12/06/19 16:21 Dose: 2.5 ml Documented by: Discontinued Medications Gadobenate Dimeglumine (Multihance) 20 ml IVPUSH ONETIME STA Stop: 12/07/19 07:23 Last Admin: 12/07/19 07:22 Dose: 14 ml Documented by: Sodium Chloride (Normal Saline) 1,000 mls @ 999 mls/hr IV .Bolus ONE Stop: 12/06/19 17:08 Last Admin: 12/06/19 16:21 Dose: 999 mls/hr Documented by: Magnesium Sulfate 2 gm/ Premix 50 mls @ 50 mls/hr IV ONETIME ONE Stop: 12/06/19 19:29 Last Admin: 12/06/19 19:12 Dose: 50 mls/hr Documented by: Magnesium Sulfate 2 gm/ Premix 50 mls @ 50 mls/hr IV ONETIME ONE Stop: 12/07/19 08:37 Last Admin: 12/07/19 08:44 Dose: 50 mls/hr Documented by: Sodium Chloride (Normal Saline) 1,000 mls @ 999 mls/hr IV STAT ONE Stop: 12/07/19 11:19 Last Admin: 12/07/19 10:49 Dose: 999 mls/hr Documented by: Lorazepam (Ativan) 0 mg IVPUSH Q4H PRN; Protocol PRN Reason: Agitation Potassium Chloride (Klor-Con M20) 40 meq PO ONETIME ONE Stop: 12/06/19 19:31 Last Admin: 12/06/19 19:41 Dose: 40 meq Documented by: *Q Meaningful Use (DIS) - Stroke *Q Aspirin Contraindications Stroke *Q: Other (Use Special Inst) (N/A) <Bal Banuelos - Last Filed: 12/10/19 11:33> Discharge Summary - Hospital Course Free Text/Narrative:: I have seen and evaluated the patient and agree with the residents note unless specified in my note - Referral to Home Health Primary Care Physician: PCP None - Patient Data Vitals - Most Recent: Last Vital Signs Temp 36.5 C 12/07/19 07:30 Pulse 65 12/07/19 07:30 Resp 17 12/07/19 07:30 BP 154/92 H 12/07/19 07:30 Pulse Ox 98 12/07/19 07:30 ANTONINO Results - Last 24 hrs: Microbiology 12/06/19 16:52 Aerobic Blood Culture - Preliminary Blood - Venous - Lab Draw NO GROWTH AFTER 3 DAYS Anaerobic Blood Culture - Preliminary NO GROWTH AFTER 3 DAYS 12/06/19 16:04 Aerobic Blood Culture - Preliminary Blood - Venous NO GROWTH AFTER 3 DAYS Anaerobic Blood Culture - Preliminary NO GROWTH AFTER 3 DAYS Med Orders - Current: Current Medications Discontinued Medications Gadobenate Dimeglumine (Multihance) 20 ml IVPUSH ONETIME STA Stop: 12/07/19 07:23 Last Admin: 12/07/19 07:22 Dose: 14 ml Documented by: Sodium Chloride (Normal Saline) 1,000 mls @ 999 mls/hr IV .Bolus ONE Stop: 12/06/19 17:08 Last Admin: 12/06/19 16:21 Dose: 999 mls/hr Documented by: Magnesium Sulfate 2 gm/ Premix 50 mls @ 50 mls/hr IV ONETIME ONE Stop: 12/06/19 19:29 Last Admin: 12/06/19 19:12 Dose: 50 mls/hr Documented by: Thiamine HCl 100 mg/ Sodium (Chloride) 101 mls @ 202 mls/hr IV DAILY JOE Last Admin: 12/07/19 10:01 Dose: 202 mls/hr Documented by: Pantoprazole Sodium 40 mg/ (Sodium Chloride) 10 mls @ 300 mls/hr IV Q24H JOE Last Admin: 12/06/19 20:24 Dose: 300 mls/hr Documented by: Magnesium Sulfate 2 gm/ Premix 50 mls @ 50 mls/hr IV ONETIME ONE Stop: 12/07/19 08:37 Last Admin: 12/07/19 08:44 Dose: 50 mls/hr Documented by: Sodium Chloride (Normal Saline) 1,000 mls @ 999 mls/hr IV STAT ONE Stop: 12/07/19 11:19 Last Admin: 12/07/19 10:49 Dose: 999 mls/hr Documented by: Sodium Chloride (Normal Saline) 1,000 mls @ 999 mls/hr IV STAT ONE Stop: 12/07/19 13:44 Lorazepam (Ativan) 0 mg IVPUSH Q4H PRN; Protocol PRN Reason: Agitation Lorazepam (Ativan) 0 mg IVPUSH Q4H PRN; Protocol PRN Reason: Withdrawal Symptoms Last Admin: 12/07/19 02:39 Dose: 2 mg Documented by: Multivit/Ca Carb/B Cmplx/FA/Prenat (Renal Caps Softgel) 1 cap PO DAILY [facility] Last Admin: 12/07/19 08:44 Dose: 1 cap Documented by: Potassium Chloride (Klor-Con M20) 40 meq PO ONETIME ONE Stop: 12/06/19 19:31 Last Admin: 12/06/19 19:41 Dose: 40 meq Documented by: Sodium Chloride (Saline Flush) 10 ml FLUSH ASDIRECTED PRN PRN Reason: Keep Vein Open Last Admin: 12/06/19 16:21 Dose: 10 ml Documented by: Sodium Chloride (Saline Flush) 2.5 ml FLUSH ASDIRECTED PRN PRN Reason: Keep Vein Open Last Admin: 12/06/19 16:21 Dose: 2.5 ml Documented by:
== END 2019-12-07 13:45 | disposition home or self-care (01) ==
LOC: MW.ED 15:31 → MW.MS 18:24
PROVIDERS: ADMIT Internal Medicine; ATTEND Internal Medicine
DX: H53.8 Other visual disturbances (principal); R42 Dizziness and giddiness; R41.0 Disorientation, unspecified; R53.83 Other fatigue; K76.0 Fatty (change of) liver, not elsewhere classified; F10.239 Alcohol dependence with withdrawal, unspecified; F32.9 Major depressive disorder, single episode, unspecified; F17.210 Nicotine dependence, cigarettes, uncomplicated; E87.6 Hypokalemia; E83.42 Hypomagnesemia; Z86.59 Personal history of other mental and behavioral disorders; Z79.82 Long term (current) use of aspirin; Z20.828 Contact with and (suspected) exposure to other viral communicable diseases; Z79.899 Other long term (current) drug therapy; Y90.0 Blood alcohol level of less than 20 mg/100 ml
CPT/HCPCS: 36415; 70450; 70553; 71045; 76705; 80053; 80305; 80307; 81001; 82550; 83735; 84100; 84146; 84443; 84484; 85025; 85610; 87040; 87635; 93005; 96361; 96365; 96375; 99285; A9270; A9577; C9113; J2060; J3411; J3475; J7030; J7050; 99284; U0002

== ENCOUNTER 2019-12-16 17:13 | Inpatient (IN) | payer SELFPAY ==
[2019-12-16] MEDS ORDERED: Sodium Chloride 0.9% 10 ML Syringe FLUSH PRN (17:21)
[2019-12-16] MEDS ORDERED: Sodium Chloride 0.9% 2.5 ML Syringe FLUSH PRN (17:21)
[2019-12-16] MEDS ORDERED: Sodium Chloride 0.9% 1,000 ML IV ONE ×2 (17:21→17:59)
[2019-12-16] MEDS ORDERED: Folic Acid 1 MG Tab PO ONE (17:23)
[2019-12-16] MEDS ORDERED: Thiamine 100 MG Tab PO ONE (17:23)
[2019-12-16] MEDS ORDERED: LORazepam 2 MG/ML SDV IVPUSH ONE (17:30)
[2019-12-16] MEDS ORDERED: Ondansetron 4 MG/2 ML SDV IVPUSH ONE (17:35)
--- NOTE | 2019-12-16 17:35 | EDM.PDOC ---
ED HPI GENERAL MEDICAL PROBLEM - General Chief Complaint: General Stated Complaint: SEIZURES Time Seen by Provider: 12/16/19 17:13 Source of Information: Reports: Patient, EMS History Limitations: Reports: No Limitations - History of Present Illness INITIAL COMMENTS - FREE TEXT/NARRATIVE: 54M presents for apparent seizure. PMHx alcoholism, cirrhosis, alcohol withdrawal requiring hospitalization, seizures 2/2 alcohol withdrawal. Patient states that he drinks pretty much every night with last drink last night. He has not cut back recently on drinking. He has a cloudy memory of this morning and doesn't recall feeling unwell prior to the seizure. He's uncertain how long it lasted and next memory was waking up with EMS bringing him here. He endorses anxiety, nausea without vomiting, and feels shaky/restless. He denies visual/auditory hallucinations. He does not have a known epilepsy disorder and is not on AEDs; only seizures have been 2/2 alcohol withdrawal. - Related Data Allergies Allergy/AdvReac Type Severity Reaction Status Date / Time No Known Allergies Allergy Verified 12/16/19 17:17 Home Meds: Home Meds . [No Known Home Meds] 12/16/19 [History] Past Medical History - Past Health History Medical/Surgical History: Denies Medical/Surgical History HEENT History: Reports: Impaired Vision, Other (See Below) Other HEENT History: uses corrective glasses Cardiovascular History: Reports: None Respiratory History: Reports: None Gastrointestinal History: Reports: Cholelithiasis, Cirrhosis, Other (See Below) Other Gastrointestinal History: Had Paracentesis done twice November or December 2018 Genitourinary History: Reports: Prostate Disorder, Other (See Below) Other Genitourinary History: unable to see urologist- no insurance. Difficulty emptying his bladder. Stated "it takes forever to empty it." Musculoskeletal History: Reports: None Neurological History: Reports: None Psychiatric History: Reports: Addiction, Depression, Other (See Below) Other Psychiatric History: Alcoholic. seasonal depression Endocrine/Metabolic History: Reports: None Insulin Pump Model and Video Specialist: None Hematologic History: Reports: None Immunologic History: Reports: None Oncologic (Cancer) History: Reports: None Dermatologic History: Reports: Other (See Below) Other Dermatologic History: claimed he has "acne all over his body" - Infectious Disease History Infectious Disease History: Reports: Chicken Pox - Past Surgical History Head Surgeries/Procedures: Reports: None HEENT Surgical History: Reports: None GI Surgical History: Reports: Cholecystectomy Male Surgical History: Reports: None Musculoskeletal Surgical History: Reports: None Social & Family History - Family History Family Medical History: Noncontributory HEENT: Reports: None Cardiac: Reports: Bypass, CAD, [place], Other (See Below) Other Cardiac Family History: pt states, "my brother dropped over from a heart attack, my dad has had several bypasses and heart failure." GI: Reports: Irritable Bowel Syndrome Psychiatric: Reports: Anxiety, Depression, Panic Attack, Psych Hospitalization(s), Psychosis, Schizophrenia, Suicide Attempt Oncologic: Reports: Leukemia, Other (See Below) Other Oncologic Family History: brother and dad had leukemia, pt states, "my brother had it twice and my dad because of it." - Caffeine Use Caffeine Use: Reports: None Other Caffeine Use: 1 cup coffee - Recreational Drug Use Recreational Drug Use: No - Living Situation & Occupation Living situation: Reports: Single Occupation: Unemployed ED ROS GENERAL - Review of Systems Review Of Systems: Comprehensive ROS is negative, except as noted in HPI. ED EXAM, GENERAL - Physical Exam Exam: See Below Exam Limited By: No Limitations General Appearance: Alert, WD/WN, No Apparent Distress, Other (generalized tremors) Eye Exam: Bilateral Eye: EOMI, PERRL Ears: Normal External Exam Nose: Normal Inspection Throat/Mouth: Normal Inspection, Normal Lips, Normal Teeth, Normal Gums, Normal Oropharynx, Normal Voice, No Airway Compromise Head: Atraumatic, Normocephalic Neck: Normal Inspection, Other (mild diffuse C-spine TTP without step-offs or deformity noted) Respiratory/Chest: No Respiratory Distress, Lungs Clear, Normal Breath Sounds, No Accessory Muscle Use Cardiovascular: Normal Peripheral Pulses, Tachycardia GI/Abdominal: Soft, Non-Tender Extremities: Normal Inspection, Other (avulsion injury to R forearm) Psychiatric: Anxious Skin Exam: Warm, Dry EKG INTERPRETATION EKG Date: 12/16/19 Time: 18:25 Course - Vital Signs Last Recorded V/S: Last Vital Signs Temp 97.8 F 12/16/19 17:18 Pulse 116 H 12/16/19 17:18 Resp 20 12/16/19 17:18 BP 173/105 H 12/16/19 17:18 Pulse Ox 97 12/16/19 17:18 - Orders/Labs/Meds Orders: Active Orders 24 hr Category Date Time Status Blood Glucose Check, Bedside [RC] ONETIME Care 12/16/19 17:22 Active Cardiac Monitoring [RC] . DIRECTED Care 12/16/19 17:21 Active EKG Documentation Completion [RC] STAT Care 12/16/19 17:21 Active Pulse Oximetry [RC] ASDIRECTED Care 12/16/19 17:21 Active Cervical Spine wo Cont [CT] Stat Exams 12/16/19 17:32 Taken Head wo Cont [CT] Stat Exams 12/16/19 17:32 Taken DRUG SCREEN, URINE [URCHEM] Stat Lab 12/16/19 17:22 Ordered INR,PT,PROTHROMBIN TIME [COAG] Stat Lab 12/16/19 17:36 Received PTT,PARTIAL THROMBOPLSTIN TIME [COAG] Stat Lab 12/16/19 17:36 Received Magnesium Sulfate/Water [Magnesium Sulfate in Water Med 12/16/19 18:30 Active Premix] 50 ml IV ONETIME Sodium Chloride 0.9% [Normal Saline] 1,000 ml Med 12/16/19 17:59 Active IV .BOLUS Sodium Chloride 0.9% [Saline Flush] Med 12/16/19 17:21 Active 10 ml FLUSH ASDIRECTED PRN Sodium Chloride 0.9% [Saline Flush] Med 12/16/19 17:21 Active 2.5 ml FLUSH ASDIRECTED PRN Saline Lock Insert [OM.PC] Stat Oth 12/16/19 17:21 Ordered Medication Orders Sodium Chloride (Normal Saline) 1,000 mls @ 999 mls/hr IV .BOLUS ONE Stop: 12/16/19 18:59 Magnesium Sulfate (Magnesium Sulfate In Water Premix) 50 mls @ 50 mls/hr IV ONETIME ONE Stop: 12/16/19 19:29 Sodium Chloride (Saline Flush) 10 ml FLUSH ASDIRECTED PRN PRN Reason: Keep Vein Open Last Admin: 12/16/19 17:43 Dose: 10 ml Documented by: CHARU Sodium Chloride (Saline Flush) 2.5 ml FLUSH ASDIRECTED PRN PRN Reason: Keep Vein Open Last Admin: 12/16/19 17:43 Dose: 2.5 ml Documented by: CHARU Labs: Laboratory Tests 09/13/20 09/13/20 09/13/20 Range/Units 17:36 17:36 17:36 WBC 5.71 (4.0-11.0) K/uL RBC 4.29 L (4.50-5.90) M/uL Hgb 13.6 (13.0-17.0) g/dL Hct 39.4 (38.0-50.0) % MCV 91.8 (80.0-98.0) fL MCH 31.7 (27.0-32.0) pg MCHC 34.5 (31.0-37.0) g/dL RDW Std Deviation 45.8 (28.0-62.0) fl RDW Coeff of Qing 14 (11.0-15.0) % Plt Count 80 L (150-400) K/uL MPV 11.30 (7.40-12.00) fL Neut % (Auto) 69.0 (48.0-80.0) % Lymph % (Auto) 16.1 (16.0-40.0) % King % (Auto) 11.9 (0.0-15.0) % Eos % (Auto) 2.5 (0.0-7.0) % Baso % (Auto) 0.5 (0.0-1.5) % Neut # (Auto) 3.9 (1.4-5.7) K/uL Lymph # (Auto) 0.9 (0.6-2.4) K/uL King # (Auto) 0.7 (0.0-0.8) K/uL Eos # (Auto) 0.1 (0.0-0.7) K/uL Baso # (Auto) 0.0 (0.0-0.1) K/uL Lactate 9.0 H* (0.20-2.00) mmol/L Sodium 137 (136-148) mmol/L Potassium 3.3 L (3.5-5.1) mmol/L Chloride 100 (98-107) mmol/L Carbon Dioxide 14.7 L (21.0-32.0) mmol/L BUN 10 (7.0-18.0) mg/dL Creatinine 0.8 (0.8-1.3) mg/dL Est Cr Clr Drug Dosing 104.52 mL/min Estimated GFR (MDRD) > 60.0 ml/min Glucose 120 H (74-106) mg/dL Calcium 8.8 (8.5-10.1) mg/dL Magnesium 1.5 L (1.8-2.4) mg/dL Total Bilirubin 1.2 H (0.2-1.0) mg/dL AST 94 H (15-37) IU/L ALT 60 (14-63) IU/L Alkaline Phosphatase 92 (46-116) U/L Total Protein 8.1 (6.4-8.2) g/dL Albumin 4.1 (3.4-5.0) g/dL Globulin 4.0 (2.6-4.0) g/dL Albumin/Globulin Ratio 1.0 (0.9-1.6) Ethyl Alcohol 18 mg/dL Meds: Medications Generic Name Dose Route Start Last Admin Trade Name Grabiel PRN Reason Stop Dose Admin Sodium Chloride 1,000 mls @ 999 mls/hr 12/16/19 17:59 Normal Saline IV 12/16/19 18:59 .BOLUS ONE Magnesium Sulfate 50 mls @ 50 mls/hr 12/16/19 18:30 Magnesium Sulfate In Water Premix IV 12/16/19 19:29 ONETIME ONE Sodium Chloride 10 ml 12/16/19 17:21 12/16/19 17:43 Saline Flush FLUSH 10 ml ASDIRECTED PRN Administration Keep Vein Open Sodium Chloride 2.5 ml 12/16/19 17:21 12/16/19 17:43 Saline Flush FLUSH 2.5 ml ASDIRECTED PRN Administration Keep Vein Open Discontinued Medications Generic Name Dose Route Start Last Admin Trade Name Grabiel PRN Reason Stop Dose Admin Folic Acid 1 mg 12/16/19 17:23 12/16/19 17:47 Folic Acid PO 12/16/19 17:24 1 mg ONETIME ONE Administration Sodium Chloride 1,000 mls @ 999 mls/hr 12/16/19 17:21 12/16/19 17:43 Normal Saline IV 12/16/19 18:21 999 mls/hr .Bolus ONE Administration Lorazepam 2 mg 12/16/19 17:30 12/16/19 17:43 Ativan IVPUSH 12/16/19 17:31 2 mg ONETIME ONE Administration Magnesium Sulfate 2 gm 12/16/19 18:20 Magnesium Sulfate 50% IV 12/16/19 18:21 ONETIME ONE Ondansetron HCl 4 mg 12/16/19 17:35 12/16/19 17:43 Zofran IVPUSH 12/16/19 17:36 4 mg ONETIME ONE Administration Potassium Chloride 40 meq 12/16/19 18:20 Klor-Con M20 PO 12/16/19 18:21 ONETIME ONE Thiamine HCl 100 mg 12/16/19 17:23 12/16/19 17:47 Vitamin B-1 PO 12/16/19 17:24 100 mg ONETIME ONE Administration - Re-Assessments/Exams Free Text/Narrative Re-Assessment/Exam: 12/16/19 17:31 CIWA = 9; will give ativan 2mg while working up. Will f/u labs, reassess, dispo accordingly. 12/16/19 18:00 Lactate elevated at 9 consistent with recent seizure. Additional 1-L IVFB ordered. Mild tachycardia also in setting of EtOH w/d; low suspicion sepsis as patient has no fever or symptoms suggestive of infectious illness. 12/16/19 18:21 Hypomagnesemia and hypokalemia; repletion ordered. 12/16/19 18:30 Dr. Villatoro agrees to admit for EtOH w/d. Patient is much more comfortable s/p 2mg ativan Departure - Departure Time of Disposition: 18:30 Disposition: Admitted As Inpatient 64 Condition: Fair Clinical Impression: Alcohol withdrawal seizure Qualifiers: Complication of substance-induced condition: uncomplicated Qualified Code(s): F10.230 - Alcohol dependence with withdrawal, uncomplicated - Discharge Information Referrals: PCP,None [Primary Care Provider] - Forms: ED Department Discharge Sepsis Event Note (ED) - Evaluation Sepsis Screening Result: No Definite Risk - Focused Exam Vital Signs: Vital Signs Temp Pulse Resp BP Pulse Ox 12/16/19 17:18 97.8 F 116 H 20 173/105 H 97 - My Orders Last 24 Hours: My Active Orders 12/16/19 17:21 Cardiac Monitoring [RC] . DIRECTED EKG Documentation Completion [RC] STAT Pulse Oximetry [RC] ASDIRECTED Sodium Chloride 0.9% [Saline Flush] 10 ml FLUSH ASDIRECTED PRN Sodium Chloride 0.9% [Saline Flush] 2.5 ml FLUSH ASDIRECTED PRN Saline Lock Insert [OM.PC] Stat 12/16/19 17:22 Blood Glucose Check, Bedside [RC] ONETIME DRUG SCREEN, URINE [URCHEM] Stat 12/16/19 17:32 Cervical Spine wo Cont [CT] Stat Head wo Cont [CT] Stat 12/16/19 17:36 INR,PT,PROTHROMBIN TIME [COAG] Stat PTT,PARTIAL THROMBOPLSTIN TIME [COAG] Stat 12/16/19 17:59 Sodium Chloride 0.9% [Normal Saline] 1,000 ml IV .BOLUS 12/16/19 18:30 Magnesium Sulfate/Water [Magnesium Sulfate in Water Premix] 50 ml IV ONETIME - Assessment/Plan Last 24 Hours: My Active Orders 12/16/19 17:21 Cardiac Monitoring [RC] . DIRECTED EKG Documentation Completion [RC] STAT Pulse Oximetry [RC] ASDIRECTED Sodium Chloride 0.9% [Saline Flush] 10 ml FLUSH ASDIRECTED PRN Sodium Chloride 0.9% [Saline Flush] 2.5 ml FLUSH ASDIRECTED PRN Saline Lock Insert [OM.PC] Stat 12/16/19 17:22 Blood Glucose Check, Bedside [RC] ONETIME DRUG SCREEN, URINE [URCHEM] Stat 12/16/19 17:32 Cervical Spine wo Cont [CT] Stat Head wo Cont [CT] Stat 12/16/19 17:36 INR,PT,PROTHROMBIN TIME [COAG] Stat PTT,PARTIAL THROMBOPLSTIN TIME [COAG] Stat 12/16/19 17:59 Sodium Chloride 0.9% [Normal Saline] 1,000 ml IV .BOLUS 12/16/19 18:30 Magnesium Sulfate/Water [Magnesium Sulfate in Water Premix] 50 ml IV ONETIME
[2019-12-16 18:06] LABS: BLOOD UREA NITROGEN,BUN 10 mg/dL (7.0-18.0); CARBON DIOXIDE,CO2 14.7 mmol/L (21.0-32.0); CHLORIDE,CL 100 mmol/L (98-107); GLUCOSE RANDOM 120 mg/dL (74-106); POTASSIUM,K 3.3 mmol/L (3.5-5.1); SODIUM,NA 137 mmol/L (136-148)
[2019-12-16] MEDS ORDERED: Potassium Chloride 20 MEQ Tab.ER PO ONE (18:20)
[2019-12-16] MEDS ORDERED: Magnesium Sulfate (4.06 MEQ/ML) 5 GM/10 ML SDV IV ONE (18:20)
[2019-12-16] MEDS ORDERED: Magnesium Sulfate/Water 50 ML IV ONE (18:30)
--- NOTE | 2019-12-16 18:42 | CT ---
Indication: Seizure. Fell. Alcohol use. Technique: CT head without IV contrast Comparison: CT head 12/06/2019 Findings: No intracranial hemorrhage edema, mass effect. Mild cerebral atrophy stable. Minimal cerebellar atrophy stable. Remainder negative. Impression: Stable head CT without acute intracranial disease. Chronic intracranial findings as above. Please note that all CT scans at this facility use dose modulation, iterative reconstruction, and/or weight-based dosing when appropriate to reduce radiation dose to as low as reasonably achievable. Dictated by Dwain Lopes MD @ Dec 16 2019 6:35PM Signed by Dr. Dwain Lopes @ Dec 16 2019 6:40PM
--- NOTE | 2019-12-16 18:50 | CT ---
Indication : Seizure. Fell. Alcohol use. Technique: CT cervical spine performed IV contrast including in axial, coronal and sagittal images Comparison: CT 03/30/2019 Findings: Ossification adjacent to posterior aspect of T1 spinous process may be degenerative or related to prior trauma/fracture and is stable. No acute fracture or dislocation in the cervical spine. Mild osteopenia. [id number] degenerative changes in the cervical spine with mild hypertrophic changes stable. Moderate narrowing C6 interspace is slightly greater. Small amounts of fluid and mucosal nodularity and a left maxillary sinus. Mild cervical curve. Mild emphysema and scarring in the upper lungs. Moderate vascular calcifications. Small sclerotic foci within the skeleton stable on likely bone islands. Mild to moderate foraminal narrowing at scattered levels in the cervical spine. Remainder negative. Impression: No acute fracture or subluxation cervical spine. Stable ossific density along the posterior aspect of the T1 spinous process either related to an old fracture and/or degenerative change. Mild to moderate degenerative changes in the cervical spine some of which have progressed mildly since 2019. Mild emphysema. Please note that all CT scans at this facility use dose modulation, iterative reconstruction, and/or weight-based dosing when appropriate to reduce radiation dose to as low as reasonably achievable. Dictated by Dwain Lopes MD @ Dec 16 2019 6:46PM Signed by Dr. Dwain Lopes @ Dec 16 2019 6:49PM
[2019-12-16] MEDS ORDERED: LORazepam 2 MG/ML SDV IVPUSH PRN (19:34)
--- NOTE | 2019-12-16 19:39 | PCM.HP.2 ---
H&P History of Present Illness - General Date of Service: 12/16/19 Admit Problem/Dx: Admission Diagnosis/Problem Admission Diagnosis/Problem Alcohol withdrawal seizure - History of Present Illness Initial Comments - Free Text/Narative: 54 male admitted for alcohol withdrawal with seizures. Patient states that he was at work and believes he had a seizure. Past medical history includes alcohol abuse, alcohol withdrawal with seizures, cirrhosis Patient states that his last drink was yesterday evening at which time he had a 750ml of vodka. Patient has been drinking every night and states that "I probably shouldn't be doing that". Patient does not recall the events of today or yesterday very well. He knows th at he was at work, and was admitted for a seizure but his recollection to today events are vague. Patient does recall that he was admitted to the hospital previously for alcohol withdrawal. Patient states that he fells dizzy, has slight SOB and chest pain. Denies nausea, vomiting, fever, chills. - Related Data Allergies/Adverse Reactions: Allergies Allergy/AdvReac Type Severity Reaction Status Date / Time No Known Allergies Allergy Verified 12/16/19 17:17 Home Medications: Home Meds . [No Known Home Meds] 12/16/19 [History] Past Medical History - Past Health History Medical/Surgical History: Denies Medical/Surgical History HEENT History: Reports: Impaired Vision, Other (See Below) Other HEENT History: uses corrective glasses Cardiovascular History: Reports: None Respiratory History: Reports: None Gastrointestinal History: Reports: Cholelithiasis, Cirrhosis, Other (See Below) Other Gastrointestinal History: Had Paracentesis done twice November or December 2018 Genitourinary History: Reports: Prostate Disorder, Other (See Below) Other Genitourinary History: unable to see urologist- no insurance. Difficulty emptying his bladder. Stated "it takes forever to empty it." Musculoskeletal History: Reports: None Neurological History: Reports: None Psychiatric History: Reports: Addiction, Depression, Other (See Below) Other Psychiatric History: Alcoholic. seasonal depression Endocrine/Metabolic History: Reports: None Insulin Pump Model and Va Underwriter: None Hematologic History: Reports: None Immunologic History: Reports: None Oncologic (Cancer) History: Reports: None Dermatologic History: Reports: Other (See Below) Other Dermatologic History: claimed he has "acne all over his body" - Infectious Disease History Infectious Disease History: Reports: Chicken Pox - Past Surgical History Head Surgeries/Procedures: Reports: None HEENT Surgical History: Reports: None GI Surgical History: Reports: Cholecystectomy Male Surgical History: Reports: None Musculoskeletal Surgical History: Reports: None Social & Family History - Family History Family Medical History: Noncontributory HEENT: Reports: None Cardiac: Reports: Bypass, CAD, [place], Other (See Below) Other Cardiac Family History: pt states, "my brother dropped over from a heart attack, my dad has had several bypasses and heart failure." GI: Reports: Irritable Bowel Syndrome Psychiatric: Reports: Anxiety, Depression, Panic Attack, Psych Hospitalization(s), Psychosis, Schizophrenia, Suicide Attempt Oncologic: Reports: Leukemia, Other (See Below) Other Oncologic Family History: brother and dad had leukemia, pt states, "my brother had it twice and my dad because of it." - Caffeine Use Caffeine Use: Reports: None Other Caffeine Use: 1 cup coffee - Recreational Drug Use Recreational Drug Use: No - Living Situation & Occupation Living situation: Reports: Single Occupation: Unemployed H&P Review of Systems - Review of Systems: Review Of Systems: See Below General: Denies: Fever, Weakness HEENT: Denies: Headaches, Visual Changes Pulmonary: Reports: Shortness of Breath. Denies: Wheezing, Pleuritic Chest Pain, Cough Cardiovascular: Denies: Chest Pain, Palpitations, Dyspnea on Exertion, Orthopnea Gastrointestinal: Denies: Abdominal Pain, Diarrhea, Nausea Musculoskeletal: Denies: Back Pain Psychiatric: Denies: Confusion, Depression, Anxiety Neurological: Reports: Dizziness, Seizure, Trouble Speaking (speech is slow and slurred), Weakness Exam - Exam Exam: See Below - Vital Signs Vital Signs: Last Vital Signs Temp 97.8 F 12/16/19 17:18 Pulse 116 H 12/16/19 17:18 Resp 20 12/16/19 17:18 BP 173/105 H 12/16/19 17:18 Pulse Ox 97 12/16/19 17:18 Weight: 158 lb - Exam General: Alert, Oriented, Lethargic Lungs: Clear to Auscultation, Normal Respiratory Effort. No: Crackles, Wheezing Cardiovascular: Regular Rate, Regular Rhythm GI/Abdominal Exam: Soft, No Distention Extremities: No Pedal Edema. No: Leg Pain Neuro Extensive - Mental Status: Alert, Oriented x3, Opens Eyes to Commands, Slow Response to Commands. No: Nl Response to Commands Psychiatric: Alert - Patient Data Lab Results Last 24 hrs: Laboratory Results - last 24 hr 12/16/19 12/16/19 12/16/19 Range/Units 17:36 17:36 17:36 WBC 5.71 (4.0-11.0) K/uL RBC 4.29 L (4.50-5.90) M/uL Hgb 13.6 (13.0-17.0) g/dL Hct 39.4 (38.0-50.0) % MCV 91.8 (80.0-98.0) fL MCH 31.7 (27.0-32.0) pg MCHC 34.5 (31.0-37.0) g/dL RDW Std Deviation 45.8 (28.0-62.0) fl RDW Coeff of Qing 14 (11.0-15.0) % Plt Count 80 L (150-400) K/uL MPV 11.30 (7.40-12.00) fL Neut % (Auto) 69.0 (48.0-80.0) % Lymph % (Auto) 16.1 (16.0-40.0) % Swain % (Auto) 11.9 (0.0-15.0) % Eos % (Auto) 2.5 (0.0-7.0) % Baso % (Auto) 0.5 (0.0-1.5) % Neut # (Auto) 3.9 (1.4-5.7) K/uL Lymph # (Auto) 0.9 (0.6-2.4) K/uL Swain # (Auto) 0.7 (0.0-0.8) K/uL Eos # (Auto) 0.1 (0.0-0.7) K/uL Baso # (Auto) 0.0 (0.0-0.1) K/uL INR 1.20 APTT 25.9 (18.6-31.3) SEC Lactate 9.0 H* (0.20-2.00) mmol/L Sodium (136-148) mmol/L Potassium (3.5-5.1) mmol/L Chloride (98-107) mmol/L Carbon Dioxide (21.0-32.0) mmol/L BUN (7.0-18.0) mg/dL Creatinine (0.8-1.3) mg/dL Est Cr Clr Drug Dosing mL/min Estimated GFR (MDRD) ml/min Glucose (74-106) mg/dL Calcium (8.5-10.1) mg/dL Magnesium (1.8-2.4) mg/dL Total Bilirubin (0.2-1.0) mg/dL AST (15-37) IU/L ALT (14-63) IU/L Alkaline Phosphatase (46-116) U/L Total Protein (6.4-8.2) g/dL Albumin (3.4-5.0) g/dL Globulin (2.6-4.0) g/dL Albumin/Globulin Ratio (0.9-1.6) Ethyl Alcohol mg/dL 12/16/19 Range/Units 17:36 WBC (4.0-11.0) K/uL RBC (4.50-5.90) M/uL Hgb (13.0-17.0) g/dL Hct (38.0-50.0) % MCV (80.0-98.0) fL MCH (27.0-32.0) pg MCHC (31.0-37.0) g/dL RDW Std Deviation (28.0-62.0) fl RDW Coeff of Qing (11.0-15.0) % Plt Count (150-400) K/uL MPV (7.40-12.00) fL Neut % (Auto) (48.0-80.0) % Lymph % (Auto) (16.0-40.0) % Swain % (Auto) (0.0-15.0) % Eos % (Auto) (0.0-7.0) % Baso % (Auto) (0.0-1.5) % Neut # (Auto) (1.4-5.7) K/uL Lymph # (Auto) (0.6-2.4) K/uL Swain # (Auto) (0.0-0.8) K/uL Eos # (Auto) (0.0-0.7) K/uL Baso # (Auto) (0.0-0.1) K/uL INR APTT (18.6-31.3) SEC Lactate (0.20-2.00) mmol/L Sodium 137 (136-148) mmol/L Potassium 3.3 L (3.5-5.1) mmol/L Chloride 100 (98-107) mmol/L Carbon Dioxide 14.7 L (21.0-32.0) mmol/L BUN 10 (7.0-18.0) mg/dL Creatinine 0.8 (0.8-1.3) mg/dL Est Cr Clr Drug Dosing 104.52 mL/min Estimated GFR (MDRD) > 60.0 ml/min Glucose 120 H (74-106) mg/dL Calcium 8.8 (8.5-10.1) mg/dL Magnesium 1.5 L (1.8-2.4) mg/dL Total Bilirubin 1.2 H (0.2-1.0) mg/dL AST 94 H (15-37) IU/L ALT 60 (14-63) IU/L Alkaline Phosphatase 92 (46-116) U/L Total Protein 8.1 (6.4-8.2) g/dL Albumin 4.1 (3.4-5.0) g/dL Globulin 4.0 (2.6-4.0) g/dL Albumin/Globulin Ratio 1.0 (0.9-1.6) Ethyl Alcohol 18 mg/dL Result Diagrams: 12/16/19 17:36 12/16/19 17:36 Sepsis Event Note - Evaluation Sepsis Screening Result: No Definite Risk - Focused Exam Vital Signs: Vital Signs Temp Pulse Resp BP Pulse Ox 12/16/19 17:18 97.8 F 116 H 20 173/105 H 97 Problem List Initiated/Reviewed/Updated: Yes Orders Last 24hrs: Active Orders 24 hr Category Date Time Status Patient Status [ADT] Routine ADT 12/16/19 18:31 Active Blood Glucose Check, Bedside [RC] ONETIME Care 12/16/19 17:22 Active Cardiac Monitoring [RC] . DIRECTED Care 12/16/19 17:21 Active EKG Documentation Completion [RC] STAT Care 12/16/19 17:21 Active Pulse Oximetry [RC] ASDIRECTED Care 12/16/19 17:21 Active CBC WITH AUTO DIFF [HEME] AM Lab 12/17/19 05:11 Ordered CMP [COMPREHENSIVE METABOLIC PN,CMP] [CHEM] AM Lab 12/17/19 05:11 Ordered CORONAVIRUS COVID-19 GLORIA [MOLEC] Stat Lab 12/16/19 18:53 Received DRUG SCREEN, URINE [URCHEM] Routine Lab 12/16/19 19:37 Ordered DRUG SCREEN, URINE [URCHEM] Stat Lab 12/16/19 17:22 Ordered LACTATE WITH REFLEX [BG] Routine Lab 12/16/19 19:36 Ordered UA RFX ANTONINO AND CULT IF INDIC [URIN] Routine Lab 12/16/19 19:37 Ordered Folic Acid Med 12/17/19 09:00 Ordered 1 mg PO DAILY LORazepam [Ativan] Med 12/16/19 19:34 Ordered See Protocol IVPUSH Q4H PRN Sodium Chloride 0.9% [Saline Flush] Med 12/16/19 17:21 Active 10 ml FLUSH ASDIRECTED PRN Sodium Chloride 0.9% [Saline Flush] Med 12/16/19 17:21 Active 2.5 ml FLUSH ASDIRECTED PRN Thiamine [Vitamin B-1] Med 12/16/19 21:00 Ordered 100 mg PO BEDTIME Saline Lock Insert [OM.PC] Stat Oth 12/16/19 17:21 Ordered Medication Orders Folic Acid (Folic Acid) 1 mg PO DAILY JOE Lorazepam (Ativan) 0 mg IVPUSH Q4H PRN; Protocol PRN Reason: CIWAA Sodium Chloride (Saline Flush) 10 ml FLUSH ASDIRECTED PRN PRN Reason: Keep Vein Open Last Admin: 12/16/19 17:43 Dose: 10 ml Documented by: VIALMEL Sodium Chloride (Saline Flush) 2.5 ml FLUSH ASDIRECTED PRN PRN Reason: Keep Vein Open Last Admin: 12/16/19 17:43 Dose: 2.5 ml Documented by: VIALMEL Thiamine HCl (Vitamin B-1) 100 mg PO BEDTIME JOE Assessment/Plan Comment:: Alcohol withdrawal with seizures- Ativan protocol (CIWA), Patient given Folic acid and Thiamine in the ED. Patients magnesium and potassium were low. Given 2g Mag Sulfate and 40meg K+ in the ED. LR 125ML/HR
[2019-12-16] MEDS: Lactated Ringers 1,000 ML IV SCH (20:20)
[2019-12-16] MEDS ORDERED: Thiamine 100 MG Tab PO SCH (21:00)
[2019-12-17] MEDS: Lactated Ringers 1,000 ML IV SCH (03:53)
[2019-12-17 06:12] LABS: BLOOD UREA NITROGEN,BUN 8 mg/dL (7.0-18.0); CARBON DIOXIDE,CO2 22.8 mmol/L (21.0-32.0); CHLORIDE,CL 102 mmol/L (98-107); GLUCOSE RANDOM 83 mg/dL (74-106); POTASSIUM,K 3.9 mmol/L (3.5-5.1); SODIUM,NA 136 mmol/L (136-148)
[2019-12-17] MEDS: Folic Acid 1 MG Tab PO SCH (09:29)
--- NOTE | 2019-12-17 11:08 | PCM.PN ---
- General Info Date of Service: 12/17/19 Subjective Update: Bedside: feeling better; just c/o fatigue. No significant acute complaints brought up by patient - Review of Systems General: Reports: No Symptoms HEENT: Reports: No Symptoms Pulmonary: Reports: No Symptoms Cardiovascular: Reports: No Symptoms Gastrointestinal: Reports: No Symptoms Genitourinary: Reports: No Symptoms Musculoskeletal: Reports: No Symptoms Skin: Reports: No Symptoms Neurological: Reports: No Symptoms Psychiatric: Denies: Confusion, Anxiety, Agitation, Hallucinations, Suicidal Ideation, Homicidal Ideation - Patient Data Vitals - Most Recent: Last Vital Signs Temp 97.9 F 12/17/19 08:00 Pulse 70 12/17/19 08:00 Resp 18 12/17/19 08:00 BP 153/77 H 12/17/19 08:00 Pulse Ox 96 12/17/19 08:00 Weight - Most Recent: 76.5 kg I&O - Last 24 Hours: Intake & Output 12/16/19 12/17/19 12/17/19 22:59 06:59 14:59 Intake Total 1772 840 Output Total 1500 Balance 272 840 Lab Results Last 24 Hours: Laboratory Results - last 24 hr 12/16/19 12/16/19 12/16/19 Range/Units 17:36 17:36 17:36 WBC 5.71 (4.0-11.0) K/uL RBC 4.29 L (4.50-5.90) M/uL Hgb 13.6 (13.0-17.0) g/dL Hct 39.4 (38.0-50.0) % MCV 91.8 (80.0-98.0) fL MCH 31.7 (27.0-32.0) pg MCHC 34.5 (31.0-37.0) g/dL RDW Std Deviation 45.8 (28.0-62.0) fl RDW Coeff of Qing 14 (11.0-15.0) % Plt Count 80 L (150-400) K/uL MPV 11.30 (7.40-12.00) fL Neut % (Auto) 69.0 (48.0-80.0) % Lymph % (Auto) 16.1 (16.0-40.0) % [place] % (Auto) 11.9 (0.0-15.0) % Eos % (Auto) 2.5 (0.0-7.0) % Baso % (Auto) 0.5 (0.0-1.5) % Neut # (Auto) 3.9 (1.4-5.7) K/uL Lymph # (Auto) 0.9 (0.6-2.4) K/uL [place] # (Auto) 0.7 (0.0-0.8) K/uL Eos # (Auto) 0.1 (0.0-0.7) K/uL Baso # (Auto) 0.0 (0.0-0.1) K/uL INR 1.20 APTT 25.9 (18.6-31.3) SEC Lactate 9.0 H* (0.20-2.00) mmol/L Sodium (136-148) mmol/L Potassium (3.5-5.1) mmol/L Chloride (98-107) mmol/L Carbon Dioxide (21.0-32.0) mmol/L BUN (7.0-18.0) mg/dL Creatinine (0.8-1.3) mg/dL Est Cr Clr Drug Dosing mL/min Estimated GFR (MDRD) ml/min Glucose (74-106) mg/dL Calcium (8.5-10.1) mg/dL Phosphorus (2.6-4.7) mg/dL Magnesium (1.8-2.4) mg/dL Total Bilirubin (0.2-1.0) mg/dL AST (15-37) IU/L ALT (14-63) IU/L Alkaline Phosphatase (46-116) U/L Total Protein (6.4-8.2) g/dL Albumin (3.4-5.0) g/dL Globulin (2.6-4.0) g/dL Albumin/Globulin Ratio (0.9-1.6) Urine Color Urine Appearance Urine pH (5.0-8.0) Ur Specific [place] (1.001-1.035) Urine Protein (NEGATIVE) mg/dL Urine Glucose (UA) (NEGATIVE) mg/dL Urine Ketones (NEGATIVE) mg/dL Urine Occult Blood (NEGATIVE) Urine Nitrite (NEGATIVE) Urine Bilirubin (NEGATIVE) Urine Urobilinogen (<2.0) EU/dL Ur Leukocyte Esterase (NEGATIVE) U Hyaline Cast (Auto) (0-2/LPF) Urine RBC (0-2/HPF) Urine WBC (0-5/HPF) Ur Epithelial Cells (NONE-FEW) Urine Bacteria (NEGATIVE) Urine Mucus (NONE-MOD) Urine Opiates Screen (NEGATIVE) Ur Oxycodone Screen (NEGATIVE) Urine Methadone Screen (NEGATIVE) Ur Barbiturates Screen (NEGATIVE) Ur Phencyclidine Scrn (NEGATIVE) Ur Amphetamine Screen (NEGATIVE) U Methamphetamines Scrn (NEGATIVE) U Benzodiazepines Scrn (NEGATIVE) U Cocaine Metab Screen (NEGATIVE) U Marijuana (THC) Screen (NEGATIVE) Ethyl Alcohol mg/dL SARS Virus RNA (PCR) (NEGATIVE) 12/16/19 12/16/19 12/16/19 Range/Units 17:36 18:53 19:44 WBC (4.0-11.0) K/uL RBC (4.50-5.90) M/uL Hgb (13.0-17.0) g/dL Hct (38.0-50.0) % MCV (80.0-98.0) fL MCH (27.0-32.0) pg MCHC (31.0-37.0) g/dL RDW Std Deviation (28.0-62.0) fl RDW Coeff of Qing (11.0-15.0) % Plt Count (150-400) K/uL MPV (7.40-12.00) fL Neut % (Auto) (48.0-80.0) % Lymph % (Auto) (16.0-40.0) % [place] % (Auto) (0.0-15.0) % Eos % (Auto) (0.0-7.0) % Baso % (Auto) (0.0-1.5) % Neut # (Auto) (1.4-5.7) K/uL Lymph # (Auto) (0.6-2.4) K/uL [place] # (Auto) (0.0-0.8) K/uL Eos # (Auto) (0.0-0.7) K/uL Baso # (Auto) (0.0-0.1) K/uL INR APTT (18.6-31.3) SEC Lactate 1.5 (0.20-2.00) mmol/L Sodium 137 (136-148) mmol/L Potassium 3.3 L (3.5-5.1) mmol/L Chloride 100 (98-107) mmol/L Carbon Dioxide 14.7 L (21.0-32.0) mmol/L BUN 10 (7.0-18.0) mg/dL Creatinine 0.8 (0.8-1.3) mg/dL Est Cr Clr Drug Dosing 104.52 mL/min Estimated GFR (MDRD) > 60.0 ml/min Glucose 120 H (74-106) mg/dL Calcium 8.8 (8.5-10.1) mg/dL Phosphorus (2.6-4.7) mg/dL Magnesium 1.5 L (1.8-2.4) mg/dL Total Bilirubin 1.2 H (0.2-1.0) mg/dL AST 94 H (15-37) IU/L ALT 60 (14-63) IU/L Alkaline Phosphatase 92 (46-116) U/L Total Protein 8.1 (6.4-8.2) g/dL Albumin 4.1 (3.4-5.0) g/dL Globulin 4.0 (2.6-4.0) g/dL Albumin/Globulin Ratio 1.0 (0.9-1.6) Urine Color Urine Appearance Urine pH (5.0-8.0) Ur Specific [place] (1.001-1.035) Urine Protein (NEGATIVE) mg/dL Urine Glucose (UA) (NEGATIVE) mg/dL Urine Ketones (NEGATIVE) mg/dL Urine Occult Blood (NEGATIVE) Urine Nitrite (NEGATIVE) Urine Bilirubin (NEGATIVE) Urine Urobilinogen (<2.0) EU/dL Ur Leukocyte Esterase (NEGATIVE) U Hyaline Cast (Auto) (0-2/LPF) Urine RBC (0-2/HPF) Urine WBC (0-5/HPF) Ur Epithelial Cells (NONE-FEW) Urine Bacteria (NEGATIVE) Urine Mucus (NONE-MOD) Urine Opiates Screen (NEGATIVE) Ur Oxycodone Screen (NEGATIVE) Urine Methadone Screen (NEGATIVE) Ur Barbiturates Screen (NEGATIVE) Ur Phencyclidine Scrn (NEGATIVE) Ur Amphetamine Screen (NEGATIVE) U Methamphetamines Scrn (NEGATIVE) U Benzodiazepines Scrn (NEGATIVE) U Cocaine Metab Screen (NEGATIVE) U Marijuana (THC) Screen (NEGATIVE) Ethyl Alcohol 18 mg/dL SARS Virus RNA (PCR) NEGATIVE (NEGATIVE) 12/16/19 12/16/19 12/17/19 Range/Units 19:51 19:51 05:15 WBC 4.74 (4.0-11.0) K/uL RBC 4.12 L (4.50-5.90) M/uL Hgb 13.0 (13.0-17.0) g/dL Hct 37.9 L (38.0-50.0) % MCV 92.0 (80.0-98.0) fL MCH 31.6 (27.0-32.0) pg MCHC 34.3 (31.0-37.0) g/dL RDW Std Deviation 46.1 (28.0-62.0) fl RDW Coeff of Qing 14 (11.0-15.0) % Plt Count 68 L (150-400) K/uL MPV 12.30 H (7.40-12.00) fL Neut % (Auto) 57.4 (48.0-80.0) % Lymph % (Auto) 22.6 (16.0-40.0) % [place] % (Auto) 15.0 (0.0-15.0) % Eos % (Auto) 4.2 (0.0-7.0) % Baso % (Auto) 0.8 (0.0-1.5) % Neut # (Auto) 2.7 (1.4-5.7) K/uL Lymph # (Auto) 1.1 (0.6-2.4) K/uL [place] # (Auto) 0.7 (0.0-0.8) K/uL Eos # (Auto) 0.2 (0.0-0.7) K/uL Baso # (Auto) 0.0 (0.0-0.1) K/uL INR APTT (18.6-31.3) SEC Lactate (0.20-2.00) mmol/L Sodium (136-148) mmol/L Potassium (3.5-5.1) mmol/L Chloride (98-107) mmol/L Carbon Dioxide (21.0-32.0) mmol/L BUN (7.0-18.0) mg/dL Creatinine (0.8-1.3) mg/dL Est Cr Clr Drug Dosing mL/min Estimated GFR (MDRD) ml/min Glucose (74-106) mg/dL Calcium (8.5-10.1) mg/dL Phosphorus (2.6-4.7) mg/dL Magnesium (1.8-2.4) mg/dL Total Bilirubin (0.2-1.0) mg/dL AST (15-37) IU/L ALT (14-63) IU/L Alkaline Phosphatase (46-116) U/L Total Protein (6.4-8.2) g/dL Albumin (3.4-5.0) g/dL Globulin (2.6-4.0) g/dL Albumin/Globulin Ratio (0.9-1.6) Urine Color DARK YELLOW Urine Appearance CLEAR Urine pH 6.0 (5.0-8.0) Ur Specific [place] >= 1.030 (1.001-1.035) Urine Protein 100 H (NEGATIVE) mg/dL Urine Glucose (UA) NEGATIVE (NEGATIVE) mg/dL Urine Ketones 15 H (NEGATIVE) mg/dL Urine Occult Blood SMALL H (NEGATIVE) Urine Nitrite NEGATIVE (NEGATIVE) Urine Bilirubin NEGATIVE (NEGATIVE) Urine Urobilinogen 0.2 (<2.0) EU/dL Ur Leukocyte Esterase NEGATIVE (NEGATIVE) U Hyaline Cast (Auto) 0-1 (0-2/LPF) Urine RBC 0-2 (0-2/HPF) Urine WBC 0-1 (0-5/HPF) Ur Epithelial Cells RARE (NONE-FEW) Urine Bacteria FEW (NEGATIVE) Urine Mucus LIGHT (NONE-MOD) Urine Opiates Screen NEGATIVE (NEGATIVE) Ur Oxycodone Screen NEGATIVE (NEGATIVE) Urine Methadone Screen NEGATIVE (NEGATIVE) Ur Barbiturates Screen NEGATIVE (NEGATIVE) Ur Phencyclidine Scrn NEGATIVE (NEGATIVE) Ur Amphetamine Screen NEGATIVE (NEGATIVE) U Methamphetamines Scrn NEGATIVE (NEGATIVE) U Benzodiazepines Scrn NEGATIVE (NEGATIVE) U Cocaine Metab Screen NEGATIVE (NEGATIVE) U Marijuana (THC) Screen NEGATIVE (NEGATIVE) Ethyl Alcohol mg/dL SARS Virus RNA (PCR) (NEGATIVE) 12/17/19 12/17/19 Range/Units 05:15 05:15 WBC (4.0-11.0) K/uL RBC (4.50-5.90) M/uL Hgb (13.0-17.0) g/dL Hct (38.0-50.0) % MCV (80.0-98.0) fL MCH (27.0-32.0) pg MCHC (31.0-37.0) g/dL RDW Std Deviation (28.0-62.0) fl RDW Coeff of Qing (11.0-15.0) % Plt Count (150-400) K/uL MPV (7.40-12.00) fL Neut % (Auto) (48.0-80.0) % Lymph % (Auto) (16.0-40.0) % [place] % (Auto) (0.0-15.0) % Eos % (Auto) (0.0-7.0) % Baso % (Auto) (0.0-1.5) % Neut # (Auto) (1.4-5.7) K/uL Lymph # (Auto) (0.6-2.4) K/uL [place] # (Auto) (0.0-0.8) K/uL Eos # (Auto) (0.0-0.7) K/uL Baso # (Auto) (0.0-0.1) K/uL INR APTT (18.6-31.3) SEC Lactate (0.20-2.00) mmol/L Sodium 136 (136-148) mmol/L Potassium 3.9 (3.5-5.1) mmol/L Chloride 102 (98-107) mmol/L Carbon Dioxide 22.8 (21.0-32.0) mmol/L BUN 8 (7.0-18.0) mg/dL Creatinine 0.7 L (0.8-1.3) mg/dL Est Cr Clr Drug Dosing 127.50 mL/min Estimated GFR (MDRD) > 60.0 ml/min Glucose 83 (74-106) mg/dL Calcium 8.5 (8.5-10.1) mg/dL Phosphorus 2.9 (2.6-4.7) mg/dL Magnesium 2.0 (1.8-2.4) mg/dL Total Bilirubin 2.0 H (0.2-1.0) mg/dL AST 82 H (15-37) IU/L ALT 51 (14-63) IU/L Alkaline Phosphatase 83 (46-116) U/L Total Protein 7.5 (6.4-8.2) g/dL Albumin 3.7 (3.4-5.0) g/dL Globulin 3.8 (2.6-4.0) g/dL Albumin/Globulin Ratio 1.0 (0.9-1.6) Urine Color Urine Appearance Urine pH (5.0-8.0) Ur Specific [place] (1.001-1.035) Urine Protein (NEGATIVE) mg/dL Urine Glucose (UA) (NEGATIVE) mg/dL Urine Ketones (NEGATIVE) mg/dL Urine Occult Blood (NEGATIVE) Urine Nitrite (NEGATIVE) Urine Bilirubin (NEGATIVE) Urine Urobilinogen (<2.0) EU/dL Ur Leukocyte Esterase (NEGATIVE) U Hyaline Cast (Auto) (0-2/LPF) Urine RBC (0-2/HPF) Urine WBC (0-5/HPF) Ur Epithelial Cells (NONE-FEW) Urine Bacteria (NEGATIVE) Urine Mucus (NONE-MOD) Urine Opiates Screen (NEGATIVE) Ur Oxycodone Screen (NEGATIVE) Urine Methadone Screen (NEGATIVE) Ur Barbiturates Screen (NEGATIVE) Ur Phencyclidine Scrn (NEGATIVE) Ur Amphetamine Screen (NEGATIVE) U Methamphetamines Scrn (NEGATIVE) U Benzodiazepines Scrn (NEGATIVE) U Cocaine Metab Screen (NEGATIVE) U Marijuana (THC) Screen (NEGATIVE) Ethyl Alcohol mg/dL SARS Virus RNA (PCR) (NEGATIVE) Med Orders - Current: Current Medications Folic Acid (Folic Acid) 1 mg PO DAILY [facility] Last Admin: 12/17/19 09:29 Dose: 1 mg Documented by: Lorazepam (Ativan) 0 mg IVPUSH Q4H PRN; Protocol PRN Reason: CIWAA Last Admin: 12/17/19 00:15 Dose: 2 mg Documented by: Sodium Chloride (Saline Flush) 10 ml FLUSH ASDIRECTED PRN PRN Reason: Keep Vein Open Last Admin: 12/16/19 17:43 Dose: 10 ml Documented by: Sodium Chloride (Saline Flush) 2.5 ml FLUSH ASDIRECTED PRN PRN Reason: Keep Vein Open Last Admin: 12/16/19 17:43 Dose: 2.5 ml Documented by: Thiamine HCl (Vitamin B-1) 100 mg PO BEDTIME [facility] Last Admin: 12/16/19 20:38 Dose: 100 mg Documented by: Discontinued Medications Folic Acid (Folic Acid) 1 mg PO ONETIME ONE Stop: 12/16/19 17:24 Last Admin: 12/16/19 17:47 Dose: 1 mg Documented by: Sodium Chloride (Normal Saline) 1,000 mls @ 999 mls/hr IV .Bolus ONE Stop: 12/16/19 18:21 Last Admin: 12/16/19 17:43 Dose: 999 mls/hr Documented by: Sodium Chloride (Normal Saline) 1,000 mls @ 999 mls/hr IV .BOLUS ONE Stop: 12/16/19 18:59 Last Admin: 12/16/19 18:33 Dose: 999 mls/hr Documented by: Magnesium Sulfate (Magnesium Sulfate In Water Premix) 50 mls @ 50 mls/hr IV ONETIME ONE Stop: 12/16/19 19:29 Last Admin: 12/16/19 18:34 Dose: 50 mls/hr Documented by: Lactated Ringer's (Ringers, Lactated) 1,000 mls @ 125 mls/hr IV ASDIRECTED [facility] Last Admin: 12/17/19 03:53 Dose: 125 mls/hr Documented by: Lorazepam (Ativan) 2 mg IVPUSH ONETIME ONE Stop: 12/16/19 17:31 Last Admin: 12/16/19 17:43 Dose: 2 mg Documented by: Magnesium Sulfate (Magnesium Sulfate 50%) 2 gm IV ONETIME ONE Stop: 12/16/19 18:21 Ondansetron HCl (Zofran) 4 mg IVPUSH ONETIME ONE Stop: 12/16/19 17:36 Last Admin: 12/16/19 17:43 Dose: 4 mg Documented by: Potassium Chloride (Klor-Con M20) 40 meq PO ONETIME ONE Stop: 12/16/19 18:21 Last Admin: 12/16/19 18:47 Dose: 40 meq Documented by: Thiamine HCl (Vitamin B-1) 100 mg PO ONETIME ONE Stop: 12/16/19 17:24 Last Admin: 12/16/19 17:47 Dose: 100 mg Documented by: - Exam Quality Assessment: No: Supplemental Oxygen General: Alert, Oriented, Cooperative, No Acute Distress HEENT: EOMI, Mucous Membr. Moist/[place] Neck: Supple Lungs: Clear to Auscultation, Normal Respiratory Effort Cardiovascular: Regular Rate, Regular Rhythm GI/Abdominal Exam: Soft, Other (liver edge palapted below costal margin ) Extremities: Normal Inspection Skin: Warm, Dry Neurological: No New Focal Deficit Psy/Mental Status: Alert, Normal Affect, Normal Mood Sepsis Event Note - Evaluation Sepsis Screening Result: No Definite Risk - Focused Exam Vital Signs: Vital Signs Temp Pulse Resp BP Pulse Ox 12/17/19 08:00 97.9 F 70 18 153/77 H 96 12/17/19 04:00 98.5 F 71 18 144/80 H 95 - Problem List Review Problem List Initiated/Reviewed/Updated: Yes - My Orders Last 24 Hours: My Active Orders 12/17/19 08:17 Antiembolic Devices [RC] PER UNIT ROUTINE Sequential Compression Device [OM.PC] Routine - Plan Plan:: Assessment: 1. Seizure in setting of chronic ETOH abuse 2. Transaminitis Plan Discussed with patient need for ETOH detoxification due to his precarious seizure history, pt endorsed wanting to detox but also mentioned wanting discharge; will continue to monitor throughout day ; will try to ambulate and possibly increase Thiamine secondary to concerns for [place]ern[place]ke (high risk potential) Continue Ativan+CIWAA protocol Continue seizure precautions
[2019-12-17] MEDS: Nicotine 21 MG/24 Hr Patch TRDERM SCH (17:42)
[2019-12-18 05:59] LABS: BLOOD UREA NITROGEN,BUN 11 mg/dL (7.0-18.0); CARBON DIOXIDE,CO2 22.9 mmol/L (21.0-32.0); CHLORIDE,CL 103 mmol/L (98-107); GLUCOSE RANDOM 101 mg/dL (74-106); POTASSIUM,K 4.1 mmol/L (3.5-5.1); SODIUM,NA 136 mmol/L (136-148)
[2019-12-18] MEDS: Folic Acid 1 MG Tab PO SCH (08:30)
[2019-12-18] MEDS: Nicotine 21 MG/24 Hr Patch TRDERM SCH (08:31)
[2019-12-18] MEDS ORDERED: Magnesium Sulfate/Water 2 GM in Premix Bag 1 BAG IV ONE (08:42)
[2019-12-18] MEDS ORDERED: Thiamine 250 MG in Sodium Chloride 0.9% 100 ML IV SCH (09:00)
[2019-12-18] MEDS ORDERED: Thiamine 200 MG/2 ML MDV IVPUSH SCH (09:00)
--- NOTE | 2019-12-18 11:29 | PCM.DCSUM1 ---
Discharge Summary - Hospital Course Free Text/Narrative:: 54 male admitted for alcohol withdrawal with seizures. Patient states that he was at work and believes he had a seizure. Past medical history includes alcohol abuse, alcohol withdrawal with seizures, cirrhosis . Patient has been drinking every night and states that "I probably shouldn't be doing that". Patient does not recall the events of today or yesterday very well. He knows that he was at work, and was admitted for a seizure but his recollection to today events are vague. Patient does recall that he was admitted to the hospital previously for alcohol withdrawal. Patient states that he fells dizzy, has slight SOB and chest pain Hospital course: pt .was placed on seizure precaution and given Ativan per CIWAA protocol. Received Thiamin and folic acid with electrolyte repletion PRN. Following morning discussed with pt. ETOH detox plan; pt was willing to detox and was continued on this particular regimen. Day of discharge pt. was asking to be discharged has he had too many things going on outside of the hospital that needed to be attended to (e.g work, apartment rent etc); and states this was causing much anxiety. Pt was recommended to stay for detox and avoid further ETOH. pt deferred and was discharged in stable condition vitals stable Discharged home. explained to avoid driving as his hx of seizures is related to ETOH and since pt. states he will not hold back on ETOHl this will become dangerous. pt understood Discharged home in stable condition - Discharge Data Discharge Date: 12/18/19 Discharge Disposition: Home, Self-Care 01 Condition: Fair - Referral to Home Health Primary Care Physician: PCP None - Discharge Plan Prescriptions/Med Rec: Thiamine HCl [B-1] 100 mg PO DAILY 30 Days #30 tablet Folic Acid 1 mg PO DAILY 30 Days #30 tablet Home Medications: Home Meds Folic Acid 1 mg PO DAILY 30 Days #30 tablet 12/18/19 [Rx] Thiamine HCl [B-1] 100 mg PO DAILY 30 Days #30 tablet 12/18/19 [Rx] Patient Handouts: Alcohol Abuse and Dependence Information, Adult, Thiamine, Vitamin B1 tablets, Folic Acid, Vitamin B9 tablets, Alcohol Withdrawal Syndrome, [id number] Referrals: Nayana Sibley NP [Nurse Practitioner] - 12/31/19 11:30 am (Please arrive 15 minutes early with your identification, insurance and your own facemask.) - Discharge Summary/Plan Comment DC Time >30 min.: No - Patient Data Vitals - Most Recent: Last Vital Signs Temp 98.1 F 12/18/19 07:30 Pulse 68 12/18/19 07:30 Resp 16 12/18/19 07:30 BP 139/87 12/18/19 07:30 Pulse Ox 99 12/18/19 07:30 Weight - Most Recent: 76.5 kg I&O - Last 24 hours: Intake & Output 12/17/19 12/18/19 12/18/19 22:59 06:59 14:59 Intake Total 450 600 Output Total 500 400 Balance -50 200 Lab Results - Last 24 hrs: Laboratory Results - last 24 hr 12/18/19 12/18/19 Range/Units 04:55 04:55 WBC 5.82 (4.0-11.0) K/uL RBC 4.16 L (4.50-5.90) M/uL Hgb 13.0 (13.0-17.0) g/dL Hct 38.9 (38.0-50.0) % MCV 93.5 (80.0-98.0) fL MCH 31.3 (27.0-32.0) pg MCHC 33.4 (31.0-37.0) g/dL RDW Std Deviation 49.3 (28.0-62.0) fl RDW Coeff of Qing 15 (11.0-15.0) % Plt Count 75 L (150-400) K/uL MPV 13.30 H (7.40-12.00) fL Neut % (Auto) 60.5 (48.0-80.0) % Lymph % (Auto) 22.3 (16.0-40.0) % [place] % (Auto) 12.9 (0.0-15.0) % Eos % (Auto) 3.6 (0.0-7.0) % Baso % (Auto) 0.7 (0.0-1.5) % Neut # (Auto) 3.5 (1.4-5.7) K/uL Lymph # (Auto) 1.3 (0.6-2.4) K/uL [place] # (Auto) 0.8 (0.0-0.8) K/uL Eos # (Auto) 0.2 (0.0-0.7) K/uL Baso # (Auto) 0.0 (0.0-0.1) K/uL Nucleated RBC % 0.0 /100WBC Nucleated RBCs # 0 K/uL Sodium 136 (136-148) mmol/L Potassium 4.1 (3.5-5.1) mmol/L Chloride 103 (98-107) mmol/L Carbon Dioxide 22.9 (21.0-32.0) mmol/L BUN 11 (7.0-18.0) mg/dL Creatinine 0.7 L (0.8-1.3) mg/dL Est Cr Clr Drug Dosing 127.50 mL/min Estimated GFR (MDRD) > 60.0 ml/min Glucose 101 (74-106) mg/dL Calcium 8.9 (8.5-10.1) mg/dL Phosphorus 2.8 (2.6-4.7) mg/dL Magnesium 1.9 (1.8-2.4) mg/dL Total Bilirubin 1.1 H (0.2-1.0) mg/dL AST 80 H (15-37) IU/L ALT 49 (14-63) IU/L Alkaline Phosphatase 93 (46-116) U/L Total Protein 7.6 (6.4-8.2) g/dL Albumin 3.7 (3.4-5.0) g/dL Globulin 3.9 (2.6-4.0) g/dL Albumin/Globulin Ratio 0.9 (0.9-1.6) Med Orders - Current: Current Medications Folic Acid (Folic Acid) 1 mg PO DAILY [facility] Last Admin: 12/18/19 08:30 Dose: 1 mg Documented by: Thiamine HCl 250 mg/ Sodium (Chloride) 102.5 mls @ 102.5 mls/hr IV DAILY [facility] Last Admin: 12/18/19 08:31 Dose: 102.5 mls/hr Documented by: Lorazepam (Ativan) 0 mg IVPUSH Q4H PRN; Protocol PRN Reason: CIWAA Last Admin: 12/17/19 00:15 Dose: 2 mg Documented by: Nicotine (Habitrol) 21 mg TRDERM DAILY [facility] Last Admin: 12/18/19 08:31 Dose: 21 mg Documented by: Sodium Chloride (Saline Flush) 10 ml FLUSH ASDIRECTED PRN PRN Reason: Keep Vein Open Last Admin: 12/16/19 17:43 Dose: 10 ml Documented by: Sodium Chloride (Saline Flush) 2.5 ml FLUSH ASDIRECTED PRN PRN Reason: Keep Vein Open Last Admin: 12/16/19 17:43 Dose: 2.5 ml Documented by: Discontinued Medications Folic Acid (Folic Acid) 1 mg PO ONETIME ONE Stop: 12/16/19 17:24 Last Admin: 12/16/19 17:47 Dose: 1 mg Documented by: Sodium Chloride (Normal Saline) 1,000 mls @ 999 mls/hr IV .Bolus ONE Stop: 12/16/19 18:21 Last Admin: 12/16/19 17:43 Dose: 999 mls/hr Documented by: Sodium Chloride (Normal Saline) 1,000 mls @ 999 mls/hr IV .BOLUS ONE Stop: 12/16/19 18:59 Last Admin: 12/16/19 18:33 Dose: 999 mls/hr Documented by: Magnesium Sulfate (Magnesium Sulfate In Water Premix) 50 mls @ 50 mls/hr IV ONETIME ONE Stop: 12/16/19 19:29 Last Admin: 12/16/19 18:34 Dose: 50 mls/hr Documented by: Lactated Ringer's (Ringers, Lactated) 1,000 mls @ 125 mls/hr IV ASDIRECTED [facility] Last Admin: 12/17/19 03:53 Dose: 125 mls/hr Documented by: Magnesium Sulfate 2 gm/ Premix 50 mls @ 50 mls/hr IV ONETIME ONE Stop: 12/18/19 09:41 Last Admin: 12/18/19 10:30 Dose: 50 mls/hr Documented by: Lorazepam (Ativan) 2 mg IVPUSH ONETIME ONE Stop: 12/16/19 17:31 Last Admin: 12/16/19 17:43 Dose: 2 mg Documented by: Magnesium Sulfate (Magnesium Sulfate 50%) 2 gm IV ONETIME ONE Stop: 12/16/19 18:21 Ondansetron HCl (Zofran) 4 mg IVPUSH ONETIME ONE Stop: 12/16/19 17:36 Last Admin: 12/16/19 17:43 Dose: 4 mg Documented by: Potassium Chloride (Klor-Con M20) 40 meq PO ONETIME ONE Stop: 12/16/19 18:21 Last Admin: 12/16/19 18:47 Dose: 40 meq Documented by: Thiamine HCl (Vitamin B-1) 100 mg PO ONETIME ONE Stop: 12/16/19 17:24 Last Admin: 12/16/19 17:47 Dose: 100 mg Documented by: Thiamine HCl (Vitamin B-1) 100 mg PO BEDTIME [facility] Last Admin: 12/16/19 20:38 Dose: 100 mg Documented by:
[2019-12-18 15:08] VITALS: BP 132/82; PULSE 93
== END 2019-12-18 12:05 | disposition home or self-care (01) | DRG 897 ==
LOC: MW.ED 17:13 → MW.MS 18:31
PROVIDERS: ADMIT Internal Medicine; ATTEND Internal Medicine
DX: F10.239 Alcohol dependence with withdrawal, unspecified (principal); K74.60 Unspecified cirrhosis of liver; F41.9 Anxiety disorder, unspecified; R56.9 Unspecified convulsions; H54.7 Unspecified visual loss; N42.9 Disorder of prostate, unspecified; F32.9 Major depressive disorder, single episode, unspecified; Z79.899 Other long term (current) drug therapy; Z90.49 Acquired absence of other specified parts of digestive tract; R74.8 Abnormal levels of other serum enzymes
CPT/HCPCS: 36415; 70450; 70450-26; 72125; 72125-26; 80053; 80305-QW; 80307; 81001; 83605; 83735; 84100; 85025; 85610; 85730; 93005; 96361; 96374; 96375; 99285; 99285-25; A9270-GY; J2060; J2405; J3411; J3475; J7030; J7050; J7120; U0002

== ENCOUNTER 2020-02-02 10:12 | Emergency (ER) | payer MEDICAID ==
[2020-02-02] MEDS ORDERED: cefTRIAXone 1 GM Vial IV ONE (10:15)
[2020-02-02] MEDS ORDERED: Pantoprazole 40 MG in Sodium Chloride 0.9% 10 ML IV ONE (10:15)
[2020-02-02] MEDS ORDERED: Sodium Chloride 0.9% 10 ML Syringe FLUSH PRN (10:15)
[2020-02-02] MEDS ORDERED: Ondansetron 4 MG/2 ML SDV IVPUSH ONE (10:15)
[2020-02-02] MEDS ORDERED: Sodium Chloride 0.9% 2.5 ML Syringe FLUSH PRN (10:15)
[2020-02-02] MEDS ORDERED: Pantoprazole 80 MG in Sodium Chloride 0.9% 20 ML IVPUSH ONE (10:19)
[2020-02-02] MEDS ORDERED: Octreotide 50 MCG/1 ML Amp IV ONE (10:19)
[2020-02-02] MEDS ORDERED: Sodium Chloride 0.9% 1,000 ML IV ONE (10:25)
--- NOTE | 2020-02-02 10:25 | EDM.PDOC ---
ED HPI GENERAL MEDICAL PROBLEM - General Chief Complaint: Gastrointestinal Problem Stated Complaint: FALL Time Seen by Provider: 02/02/20 10:15 Source of Information: Reports: Patient History Limitations: Reports: No Limitations - History of Present Illness INITIAL COMMENTS - FREE TEXT/NARRATIVE: 54-year-old male past medical history alcoholic cirrhosis, alcoholism, gastritis, pancreatitis presents for vomiting blood. Patient states that he drinks alcohol daily. This morning drink about a liter of vodka, and had taken 1000 mg of Motrin for lower back pain. Had multiple episodes of bloody emesis described as bright red blood. Syncopized falling backwards although he denies he hit his head. He notes generalized abdominal pain. He denies ever having had endoscopy, denies diagnosis of esophageal varices or gastritis. He is a poor historian secondary to alcohol intoxication and clinical condition. back Pain Score (Numeric/FACES): 4 - Related Data Allergies Allergy/AdvReac Type Severity Reaction Status Date / Time No Known Allergies Allergy Verified 02/02/20 10:46 Home Meds: Home Meds . [No Known Home Meds] 02/02/20 [History] Past Medical History - Past Health History Medical/Surgical History: Denies Medical/Surgical History HEENT History: Reports: Impaired Vision, Other (See Below) Other HEENT History: uses corrective glasses Cardiovascular History: Reports: None Respiratory History: Reports: None Gastrointestinal History: Reports: Cholelithiasis, Cirrhosis, Other (See Below) Other Gastrointestinal History: Had Paracentesis done twice November or December 2018 Genitourinary History: Reports: Prostate Disorder, Other (See Below) Other Genitourinary History: unable to see urologist- no insurance. Difficulty emptying his bladder. Stated "it takes forever to empty it." Musculoskeletal History: Reports: None Neurological History: Reports: None Psychiatric History: Reports: Addiction, Depression, Other (See Below) Other Psychiatric History: Alcoholic. seasonal depression Endocrine/Metabolic History: Reports: None Insulin Pump Model and Materials Technician: None Hematologic History: Reports: None Immunologic History: Reports: None Oncologic (Cancer) History: Reports: None Dermatologic History: Reports: Other (See Below) Other Dermatologic History: claimed he has "acne all over his body" - Infectious Disease History Infectious Disease History: Reports: Chicken Pox - Past Surgical History Head Surgeries/Procedures: Reports: None HEENT Surgical History: Reports: None GI Surgical History: Reports: Cholecystectomy Male Surgical History: Reports: None Musculoskeletal Surgical History: Reports: None Social & Family History - Family History Family Medical History: Noncontributory HEENT: Reports: None Cardiac: Reports: Bypass, CAD, [place], Other (See Below) Other Cardiac Family History: pt states, "my brother dropped over from a heart attack, my dad has had several bypasses and heart failure." GI: Reports: Irritable Bowel Syndrome Psychiatric: Reports: Anxiety, Depression, Panic Attack, Psych Hospitalization(s), Psychosis, Schizophrenia, Suicide Attempt Oncologic: Reports: Leukemia, Other (See Below) Other Oncologic Family History: brother and dad had leukemia, pt states, "my brother had it twice and my dad because of it." - Caffeine Use Caffeine Use: Reports: None Other Caffeine Use: 1 cup coffee - Living Situation & Occupation Living situation: Reports: Single Occupation: Unemployed ED ROS GENERAL - Review of Systems Review Of Systems: Comprehensive ROS is negative, except as noted in HPI. ED EXAM, GENERAL - Physical Exam Exam: See Below Exam Limited By: Other (alcohol intoxication, clinical condition) General Appearance: Alert Eye Exam: Bilateral Eye: PERRL Throat/Mouth: Other (Blood around mouth and and oropharynx) Head: Atraumatic, Normocephalic Neck: Normal Inspection. No: Tender Midline Respiratory/Chest: No Respiratory Distress, Lungs Clear, Normal Breath Sounds, No Accessory Muscle Use Cardiovascular: Normal Peripheral Pulses, Tachycardia GI/Abdominal: Soft, Other (Diffuse tenderness to palpation without guarding or rebound) Extremities: Normal Inspection Neurological: Alert Psychiatric: Normal Affect Skin Exam: Warm, Dry, Intact ED GENERAL MEDICAL PROCEDURES - Endotracheal Intubation Time of Intubation: 10:30 ET Intubation Indication: Airway Protection Preparation: Suction, Balloon Tested, BVM Set Up, Difficult Airway Equip Pre-Oxygenation: Assisted with BVM, 100% FiO2 Anesthesia Meds: Etomidate, Succinylcholine Placement: Orotracheal Cords Visualized: Yes ETT Size In mm: 7.5 Number of Attempts: 1 Confirmed By: CO2 Indicator, Bilateral Breath Sounds, Chest Xray Tube Secured By: By RT ED CENTRAL LINE INSERTION - Central Line Insertion Central Line Indication: IV access, medication administration Site: femoral (R) Prep: CDC/MBT Guidelines, Sterile Drapes, Betadine, Chlorhexidine Lumen: triple Gauge: 7Fr Ultrasound guided: No Guidewire and dilator removed intact: Yes Complications: No Secured with suture: Yes Post placement confirmation: all ports aspirated, all ports flushed Dressing applied: by provider Course - Vital Signs Last Recorded V/S: Last Vital Signs Temp 97.8 F 02/02/20 12:26 Pulse 106 H 02/02/20 10:15 Resp 16 02/02/20 10:15 BP 70/45 L 02/02/20 10:15 Pulse Ox 99 02/02/20 10:15 - Orders/Labs/Meds Orders: Active Orders 24 hr Category Date Time Status Blood Glucose Check, Bedside [RC] ONETIME Care 02/02/20 10:16 Active Cardiac Monitoring [RC] . DIRECTED Care 02/02/20 10:15 Active EKG Documentation Completion [RC] STAT Care 02/02/20 10:15 Active Pulse Oximetry [RC] ASDIRECTED Care 02/02/20 10:15 Active RASS Sedation Scale [RC] ASDIRECTED Care 02/02/20 12:26 Active RED BLOOD CELLS LP [BBK] Stat Lab 02/02/20 11:00 Results TYPE AND SCREEN [BBK] Stat Lab 02/02/20 11:00 Results Norepinephrine Bit/0.9 % NaCl [Norepinephr-0.9% NaCl 4 Med 02/02/20 13:00 Active mg/250] 4 mg in 250 ml IV TITRATE Octreotide [SandoSTATIN] 500 mcg Med 02/02/20 10:30 Active Sodium Chloride 0.9% [Normal Saline] 495 ml IV Q10H Pantoprazole [ProTONIX IV] 200 mg Med 02/02/20 11:30 Active Sodium Chloride 0.9% [Normal Saline] 250 ml IV ONETIME Sodium Chloride 0.9% [Saline Flush] Med 02/02/20 10:15 Active 10 ml FLUSH ASDIRECTED PRN Sodium Chloride 0.9% [Saline Flush] Med 02/02/20 10:15 Active 2.5 ml FLUSH ASDIRECTED PRN fentaNYL [Sublimaze] 1,000 mcg Med 02/02/20 12:45 Active Sodium Chloride 0.9% [Normal Saline] 480 ml IV ONETIME fentaNYL [Sublimaze] 250 mcg Med 02/02/20 10:45 Active Sodium Chloride 0.9% [Normal Saline] 245 ml IV ONETIME propofoL [Diprivan 100 ML] 100 ml Med 02/02/20 12:30 Active IV TITRATE Desired Level of Sedation (RASS) [AST] Click to Edit Ot 02/02/20 12:26 Ordered Saline Lock Insert [OM.PC] Stat Ot 02/02/20 10:15 Ordered Transfuse PRBC [Transfuse Red Blood Cells] [COMM] Stat Ot 02/02/20 11:01 Ordered Transfuse Red Blood Cells [COMM] Stat Ot 02/02/20 12:08 Ordered Medication Orders Octreotide Acetate 500 mcg/ (Sodium Chloride) 500 mls @ 50 mls/hr IV Q10H JOE Last Admin: 02/02/20 12:15 Dose: 50 mcg/hr, 50 mls/hr Documented by: CRISS Fentanyl 250 mcg/ Sodium (Chloride) 250 mls @ 72.575 mls/hr IV ONETIME ONE Stop: 02/02/20 14:11 Last Admin: 02/02/20 11:00 Dose: 1 mcg/kg/hr, 72.575 mls/hr Documented by: CRISS Pantoprazole Sodium 200 mg/ (Sodium Chloride) 250 mls @ 10 mls/hr IV ONETIME ONE Stop: 02/03/20 12:29 Last Admin: 02/02/20 11:54 Dose: 10 mls/hr Documented by: CRISS Propofol (Diprivan 100 Ml) 100 mls @ 4.355 mls/hr IV TITRATE JOE; Protocol Fentanyl 1,000 mcg/ Sodium (Chloride) 500 mls @ 36.288 mls/hr IV ONETIME ONE Stop: 02/03/20 02:31 Norepinephrine Bitartrate (Norepinephr-0.9% Nacl 4 Mg/250) 4 mg in 250 mls @ 7.5 mls/hr IV TITRATE JOE; Protocol Sodium Chloride (Saline Flush) 10 ml FLUSH ASDIRECTED PRN PRN Reason: Keep Vein Open Last Admin: 02/02/20 12:34 Dose: 10 ml Documented by: CRISS Sodium Chloride (Saline Flush) 2.5 ml FLUSH ASDIRECTED PRN PRN Reason: Keep Vein Open Last Admin: 02/02/20 12:33 Dose: 2.5 ml Documented by: CRISS Labs: Laboratory Tests 02/02/20 02/02/20 02/02/20 Range/Units 10:48 10:51 10:51 WBC 7.57 (4.0-11.0) K/uL RBC 2.90 L (4.50-5.90) M/uL Hgb 9.0 L (13.0-17.0) g/dL Hct 27.5 L (38.0-50.0) % MCV 94.8 (80.0-98.0) fL MCH 31.0 (27.0-32.0) pg MCHC 32.7 (31.0-37.0) g/dL RDW Std Deviation 50.0 (28.0-62.0) fl RDW Coeff of Qing 15 (11.0-15.0) % Plt Count 74 L (150-400) K/uL MPV 12.00 (7.40-12.00) fL Neut % (Auto) 76.1 (48.0-80.0) % Lymph % (Auto) 12.5 L (16.0-40.0) % Bee % (Auto) 11.2 (0.0-15.0) % Eos % (Auto) 0.1 (0.0-7.0) % Baso % (Auto) 0.1 (0.0-1.5) % Neut # (Auto) 5.8 H (1.4-5.7) K/uL Lymph # (Auto) 1.0 (0.6-2.4) K/uL Bee # (Auto) 0.9 H (0.0-0.8) K/uL Eos # (Auto) 0.0 (0.0-0.7) K/uL Baso # (Auto) 0.0 (0.0-0.1) K/uL Nucleated RBC % 0.0 /100WBC Nucleated RBCs # 0 K/uL INR APTT (18.6-31.3) SEC Lactate 11.0 H* (0.20-2.00) mmol/L Sodium (136-148) mmol/L Potassium (3.5-5.1) mmol/L Chloride (98-107) mmol/L Carbon Dioxide (21.0-32.0) mmol/L BUN (7.0-18.0) mg/dL Creatinine (0.8-1.3) mg/dL Est Cr Clr Drug Dosing mL/min Estimated GFR (MDRD) ml/min Glucose (74-106) mg/dL Calcium (8.5-10.1) mg/dL Phosphorus (2.6-4.7) mg/dL Magnesium (1.8-2.4) mg/dL Total Bilirubin (0.2-1.0) mg/dL AST (15-37) IU/L ALT (14-63) IU/L Alkaline Phosphatase (46-116) U/L Ammonia (19-54) ug/dL Troponin I (0.000-0.056) ng/mL Total Protein (6.4-8.2) g/dL Albumin (3.4-5.0) g/dL Globulin (2.6-4.0) g/dL Albumin/Globulin Ratio (0.9-1.6) Lipase (73-393) U/L Urine Color Urine Appearance Urine pH (5.0-8.0) Ur Specific [place] (1.001-1.035) Urine Protein (NEGATIVE) mg/dL Urine Glucose (UA) (NEGATIVE) mg/dL Urine Ketones (NEGATIVE) mg/dL Urine Occult Blood (NEGATIVE) Urine Nitrite (NEGATIVE) Urine Bilirubin (NEGATIVE) Urine Urobilinogen (<2.0) EU/dL Ur Leukocyte Esterase (NEGATIVE) Urine RBC (0-2/HPF) Urine WBC (0-5/HPF) Ur Epithelial Cells (NONE-FEW) Ur Renal Epithelial Cell Amorphous Sediment (NEGATIVE) Urine Bacteria (NEGATIVE) Coarse Granular Casts (NEGATIVE) Ethyl Alcohol mg/dL SARS-CoV-2 RNA (GLORIA) NEGATIVE (NEGATIVE) Blood Type Antibody Screen Crossmatch 02/02/20 02/02/20 02/02/20 Range/Units 10:51 10:51 10:51 WBC (4.0-11.0) K/uL RBC (4.50-5.90) M/uL Hgb (13.0-17.0) g/dL Hct (38.0-50.0) % MCV (80.0-98.0) fL MCH (27.0-32.0) pg MCHC (31.0-37.0) g/dL RDW Std Deviation (28.0-62.0) fl RDW Coeff of Qing (11.0-15.0) % Plt Count (150-400) K/uL MPV (7.40-12.00) fL Neut % (Auto) (48.0-80.0) % Lymph % (Auto) (16.0-40.0) % Bee % (Auto) (0.0-15.0) % Eos % (Auto) (0.0-7.0) % Baso % (Auto) (0.0-1.5) % Neut # (Auto) (1.4-5.7) K/uL Lymph # (Auto) (0.6-2.4) K/uL Bee # (Auto) (0.0-0.8) K/uL Eos # (Auto) (0.0-0.7) K/uL Baso # (Auto) (0.0-0.1) K/uL Nucleated RBC % /100WBC Nucleated RBCs # K/uL INR 1.52 APTT 24.2 (18.6-31.3) SEC Lactate (0.20-2.00) mmol/L Sodium 140 (136-148) mmol/L Potassium 4.4 (3.5-5.1) mmol/L Chloride 105 (98-107) mmol/L Carbon Dioxide 16.7 L (21.0-32.0) mmol/L BUN 32 H (7.0-18.0) mg/dL Creatinine 1.3 (0.8-1.3) mg/dL Est Cr Clr Drug Dosing 65.13 mL/min Estimated GFR (MDRD) 57.1 ml/min Glucose 147 H (74-106) mg/dL Calcium 7.7 L (8.5-10.1) mg/dL Phosphorus 3.7 (2.6-4.7) mg/dL Magnesium 1.8 (1.8-2.4) mg/dL Total Bilirubin 2.2 H (0.2-1.0) mg/dL AST 449 H (15-37) IU/L ALT 183 H (14-63) IU/L Alkaline Phosphatase 64 (46-116) U/L Ammonia 101 H (19-54) ug/dL Troponin I < 0.050 (0.000-0.056) ng/mL Total Protein 5.2 L (6.4-8.2) g/dL Albumin 2.7 L (3.4-5.0) g/dL Globulin 2.5 L (2.6-4.0) g/dL Albumin/Globulin Ratio 1.1 (0.9-1.6) Lipase 333 (73-393) U/L Urine Color Urine Appearance Urine pH (5.0-8.0) Ur Specific [place] (1.001-1.035) Urine Protein (NEGATIVE) mg/dL Urine Glucose (UA) (NEGATIVE) mg/dL Urine Ketones (NEGATIVE) mg/dL Urine Occult Blood (NEGATIVE) Urine Nitrite (NEGATIVE) Urine Bilirubin (NEGATIVE) Urine Urobilinogen (<2.0) EU/dL Ur Leukocyte Esterase (NEGATIVE) Urine RBC (0-2/HPF) Urine WBC (0-5/HPF) Ur Epithelial Cells (NONE-FEW) Ur Renal Epithelial Cell Amorphous Sediment (NEGATIVE) Urine Bacteria (NEGATIVE) Coarse Granular Casts (NEGATIVE) Ethyl Alcohol 223 mg/dL SARS-CoV-2 RNA ([place]ORIA) (NEGATIVE) Blood Type Antibody Screen Crossmatch 02/02/20 02/02/20 Range/Units 11:00 11:43 WBC (4.0-11.0) K/uL RBC (4.50-5.90) M/uL Hgb (13.0-17.0) g/dL Hct (38.0-50.0) % MCV (80.0-98.0) fL MCH (27.0-32.0) pg MCHC (31.0-37.0) g/dL RDW Std Deviation (28.0-62.0) fl RDW Coeff of Qing (11.0-15.0) % Plt Count (150-400) K/uL MPV (7.40-12.00) fL Neut % (Auto) (48.0-80.0) % Lymph % (Auto) (16.0-40.0) % Bee % (Auto) (0.0-15.0) % Eos % (Auto) (0.0-7.0) % Baso % (Auto) (0.0-1.5) % Neut # (Auto) (1.4-5.7) K/uL Lymph # (Auto) (0.6-2.4) K/uL Bee # (Auto) (0.0-0.8) K/uL Eos # (Auto) (0.0-0.7) K/uL Baso # (Auto) (0.0-0.1) K/uL Nucleated RBC % /100WBC Nucleated RBCs # K/uL INR APTT (18.6-31.3) SEC Lactate (0.20-2.00) mmol/L Sodium (136-148) mmol/L Potassium (3.5-5.1) mmol/L Chloride (98-107) mmol/L Carbon Dioxide (21.0-32.0) mmol/L BUN (7.0-18.0) mg/dL Creatinine (0.8-1.3) mg/dL Est Cr Clr Drug Dosing mL/min Estimated GFR (MDRD) ml/min Glucose (74-106) mg/dL Calcium (8.5-10.1) mg/dL Phosphorus (2.6-4.7) mg/dL Magnesium (1.8-2.4) mg/dL Total Bilirubin (0.2-1.0) mg/dL AST (15-37) IU/L ALT (14-63) IU/L Alkaline Phosphatase (46-116) U/L Ammonia (19-54) ug/dL Troponin I (0.000-0.056) ng/mL Total Protein (6.4-8.2) g/dL Albumin (3.4-5.0) g/dL Globulin (2.6-4.0) g/dL Albumin/Globulin Ratio (0.9-1.6) Lipase (73-393) U/L Urine Color YELLOW Urine Appearance HAZY Urine pH 6.0 (5.0-8.0) Ur Specific [place] 1.020 (1.001-1.035) Urine Protein TRACE H (NEGATIVE) mg/dL Urine Glucose (UA) NEGATIVE (NEGATIVE) mg/dL Urine Ketones 40 H (NEGATIVE) mg/dL Urine Occult Blood SMALL H (NEGATIVE) Urine Nitrite NEGATIVE (NEGATIVE) Urine Bilirubin NEGATIVE (NEGATIVE) Urine Urobilinogen 0.2 (<2.0) EU/dL Ur Leukocyte Esterase NEGATIVE (NEGATIVE) Urine RBC 0-4 (0-2/HPF) Urine WBC 0-3 (0-5/HPF) Ur Epithelial Cells OCCASIONAL (NONE-FEW) Ur Renal Epithelial Cell FEW Amorphous Sediment LIGHT (NEGATIVE) Urine Bacteria FEW (NEGATIVE) Coarse Granular Casts 0-4 (NEGATIVE) Ethyl Alcohol mg/dL SARS-CoV-2 RNA ([place]) (NEGATIVE) Blood Type A POSITIVE Antibody Screen NEGATIVE Crossmatch See Detail Meds: Medications Generic Name Dose Route Start Last Admin Trade Name Arbenq PRN Reason Stop Dose Admin Octreotide Acetate 500 mcg/ 500 mls @ 50 mls/hr 02/02/20 10:30 02/02/20 12:15 Sodium Chloride IV 50 mcg/hr Q10H JOE 50 mls/hr Administration 50 MCG/HR Fentanyl 250 mcg/ Sodium 250 mls @ 72.575 mls/hr 02/02/20 10:45 02/02/20 11:00 Chloride IV 02/02/20 14:11 1 mcg/kg/hr ONETIME ONE 72.575 mls/hr Administration 1 MCG/KG/HR Pantoprazole Sodium 200 mg/ 250 mls @ 10 mls/hr 02/02/20 11:30 02/02/20 11:54 Sodium Chloride IV 02/03/20 12:29 10 mls/hr ONETIME ONE Administration Propofol 100 mls @ 4.355 mls/hr 02/02/20 12:30 Diprivan 100 Ml IV TITRATE JOE Protocol 10 MCG/KG/MIN Fentanyl 1,000 mcg/ Sodium 500 mls @ 36.288 mls/hr 02/02/20 12:45 Chloride IV 02/03/20 02:31 ONETIME ONE 1 MCG/KG/HR Norepinephrine Bitartrate 4 mg in 250 mls @ 7.5 mls/hr 02/02/20 13:00 Norepinephr-0.9% Nacl 4 Mg/250 IV TITRATE JOE Protocol 2 MCG/MIN Sodium Chloride 10 ml 02/02/20 10:15 02/02/20 12:34 Saline Flush FLUSH 10 ml ASDIRECTED PRN Administration Keep Vein Open Sodium Chloride 2.5 ml 02/02/20 10:15 02/02/20 12:33 Saline Flush FLUSH 2.5 ml ASDIRECTED PRN Administration Keep Vein Open Discontinued Medications Generic Name Dose Route Start Last Admin Trade Name Arbenq PRN Reason Stop Dose Admin Ceftriaxone Sodium 1 gm 02/02/20 10:15 02/02/20 12:22 Rocephin IV 02/02/20 10:16 Not Given ONETIME ONE Fentanyl Confirm 10/31/20 11:23 02/02/20 12:12 Fentanyl Administered 02/02/20 11:24 Not Given Dose 50 mcg .ROUTE .STK-MED ONE Fentanyl Confirm 02/02/20 11:24 02/02/20 12:12 Fentanyl Administered 02/02/20 11:25 Not Given Dose 50 mcg .ROUTE .STK-MED ONE Fentanyl 100 mcg 02/02/20 11:47 02/02/20 12:25 Fentanyl IVPUSH 02/02/20 11:48 100 mcg ONETIME ONE Administration Sodium Chloride 1,000 mls @ 999 mls/hr 02/02/20 10:15 02/02/20 10:56 Normal Saline IV 02/02/20 11:15 999 mls/hr .Bolus ONE Administration Pantoprazole Sodium 40 mg/ 10 mls @ 300 mls/hr 02/02/20 10:15 02/02/20 10:58 Sodium Chloride IV 02/02/20 10:16 Not Given NOW ONE Pantoprazole Sodium 80 mg/ 20 mls @ 420 mls/hr 02/02/20 10:19 02/02/20 10:58 Sodium Chloride IVPUSH 02/02/20 10:21 420 mls/hr ONETIME ONE Administration Sodium Chloride 1,000 mls @ 999 mls/hr 02/02/20 10:25 02/02/20 10:55 Normal Saline IV 02/02/20 11:25 999 mls/hr .Bolus ONE Administration Sodium Chloride Confirm 02/02/20 10:40 02/02/20 10:59 Normal Saline Administered 02/02/20 10:41 Not Given Dose 20 mls @ as directed .ROUTE .STK-MED ONE Propofol Confirm 02/02/20 11:26 02/02/20 12:31 Diprivan 50 Ml Administered 02/02/20 11:27 Not Given Dose 50 mls @ as directed .ROUTE .STK-MED ONE Ceftriaxone Sodium/Dextrose Confirm 02/02/20 11:49 02/02/20 12:22 Rocephin In Dextrose,Iso-Osm 1 Gm/50 Ml Administered 02/02/20 11:50 Not Given Dose 50 mls @ as directed .ROUTE .STK-MED ONE Ceftriaxone Sodium/Dextrose 1 50 mls @ 100 mls/hr 02/02/20 11:52 02/02/20 11:52 gm/ Premix IV 02/02/20 12:21 100 mls/hr ONETIME ONE Administration Octreotide Acetate 50 mcg 02/02/20 12:30 02/02/20 12:22 Sandostatin IV 02/02/20 12:31 50 mcg ONETIME ONE Administration Ondansetron HCl 4 mg 02/02/20 10:15 02/02/20 10:58 Zofran IVPUSH 02/02/20 10:16 4 mg ONETIME ONE Administration Ondansetron HCl Confirm 02/02/20 10:45 02/02/20 10:58 Zofran Administered 02/02/20 10:46 Not Given Dose 4 mg .ROUTE .STK-MED ONE Pantoprazole Sodium Confirm 02/02/20 10:40 02/02/20 10:59 Protonix Iv Administered 02/02/20 10:41 Not Given Dose 80 mg .ROUTE .STK-MED ONE - Re-Assessments/Exams Free Text/Narrative Re-Assessment/Exam: 02/02/20 10:24 Patient's history and exam is concerning for upper GI bleed likely secondary to alcoholic gastritis versus more concerning esophageal varices. Patient is hypotensive to 70s over 40s. Will start aggressive fluid resuscitation. Labs ordered. Protonix push and drip ordered. Octreotide push and drip ordered. 02/02/20 12:18 Patient had large-volume emesis in ED. Decision was made to intubate patient for airway protection. Patient was intubated successfully on the first try. 3 L IV fluid bolus has been given, patient remains borderline hypotensive systolics ranging from 70s to 100s. Patient is on a fentanyl drip initially for sedation, but this was inadequate so propofol drip was ordered and is being titrated carefully to avoid hypotension. 2 units of blood were ordered. A right femoral central line 3 lm catheter was placed. An OG tube was placed and roughly 600cc of dark red blood was suctioned. Labs were remarkable for lactate of 11, initial hemoglobin 9. Spoke with hospitalist at [facility], he will call back shortly for likely acceptance pending superintendent transportation consultation. Flight crew is on standby. 02/02/20 12:33 Dr. Floyd agrees to admit patient to his service. Fixed wing air transportation has been called. 2 units PRBCs will be given prior to transfer. 02/02/20 12:37 Patient was unable to get CT imaging of head, neck, abdomen and pelvis secondary to deteriorating clinical condition. It was communicated to the hospitalist at [facility] that patient did fall, and when stabilized should get a CT of the head, neck. 02/02/20 13:00 Flight crew has arrived. Additional unit of PRBC has been ordered for the flight. First unit is going on now and second unit is starting. Levophed has been ordered for standby in case BP is not responsive to blood transfusion. Departure - Departure Time of Disposition: 12:34 Disposition: DC/Tfer to Other 70 Condition: Critical Clinical Impression: UGIB (upper gastrointestinal bleed) - Discharge Information Referrals: PCP,None [Primary Care Provider] - Forms: ED Department Discharge Critical Care Note - Critical Care Note Total Time (mins): 60 Comments: Patient was at risk of or permanent disability due to hemorrhage 2/2 UGIB. Sepsis Event Note (ED) - Focused Exam Vital Signs: Vital Signs Temp Pulse Resp BP Pulse Ox 02/02/20 12:26 97.8 F 02/02/20 10:15 95.7 F L 106 H 16 70/45 L 99 - My Orders Last 24 Hours: My Active Orders 02/02/20 10:15 Cardiac Monitoring [RC] . DIRECTED EKG Documentation Completion [RC] STAT Pulse Oximetry [RC] ASDIRECTED Sodium Chloride 0.9% [Saline Flush] 10 ml FLUSH ASDIRECTED PRN Sodium Chloride 0.9% [Saline Flush] 2.5 ml FLUSH ASDIRECTED PRN Saline Lock Insert [OM.PC] Stat 02/02/20 10:16 Blood Glucose Check, Bedside [RC] ONETIME 02/02/20 10:30 Octreotide [SandoSTATIN] 500 mcg Sodium Chloride 0.9% [Normal Saline] 495 ml IV Q10H 02/02/20 10:45 fentaNYL [Sublimaze] 250 mcg Sodium Chloride 0.9% [Normal Saline] 245 ml IV ONETIME 02/02/20 11:00 RED BLOOD CELLS LP [BBK] Stat TYPE AND SCREEN [BBK] Stat 02/02/20 11:01 Transfuse PRBC [Transfuse Red Blood Cells] [COMM] Stat 02/02/20 11:30 Pantoprazole [ProTONIX IV] 200 mg Sodium Chloride 0.9% [Normal Saline] 250 ml IV ONETIME 02/02/20 12:08 Transfuse Red Blood Cells [COMM] Stat 02/02/20 12:26 RASS Sedation Scale [RC] ASDIRECTED Desired Level of Sedation (RASS) [AST] Click to Edit 02/02/20 12:30 propofoL [Diprivan 100 ML] 100 ml IV TITRATE 02/02/20 12:45 fentaNYL [Sublimaze] 1,000 mcg Sodium Chloride 0.9% [Normal Saline] 480 ml IV ONETIME 02/02/20 13:00 Norepinephrine Bit/0.9 % NaCl [Norepinephr-0.9% NaCl 4 mg/250] 4 mg in 250 ml IV TITRATE - Assessment/Plan Last 24 Hours: My Active Orders 02/02/20 10:15 Cardiac Monitoring [RC] . DIRECTED EKG Documentation Completion [RC] STAT Pulse Oximetry [RC] ASDIRECTED Sodium Chloride 0.9% [Saline Flush] 10 ml FLUSH ASDIRECTED PRN Sodium Chloride 0.9% [Saline Flush] 2.5 ml FLUSH ASDIRECTED PRN Saline Lock Insert [OM.PC] Stat 02/02/20 10:16 Blood Glucose Check, Bedside [RC] ONETIME 02/02/20 10:30 Octreotide [SandoSTATIN] 500 mcg Sodium Chloride 0.9% [Normal Saline] 495 ml IV Q10H 02/02/20 10:45 fentaNYL [Sublimaze] 250 mcg Sodium Chloride 0.9% [Normal Saline] 245 ml IV ONETIME 02/02/20 11:00 RED BLOOD CELLS LP [BBK] Stat TYPE AND SCREEN [BBK] Stat 02/02/20 11:01 Transfuse PRBC [Transfuse Red Blood Cells] [COMM] Stat 02/02/20 11:30 Pantoprazole [ProTONIX IV] 200 mg Sodium Chloride 0.9% [Normal Saline] 250 ml IV ONETIME 02/02/20 12:08 Transfuse Red Blood Cells [COMM] Stat 02/02/20 12:26 RASS Sedation Scale [RC] ASDIRECTED Desired Level of Sedation (RASS) [AST] Click to Edit 02/02/20 12:30 propofoL [Diprivan 100 ML] 100 ml IV TITRATE 02/02/20 12:45 fentaNYL [Sublimaze] 1,000 mcg Sodium Chloride 0.9% [Normal Saline] 480 ml IV ONETIME 02/02/20 13:00 Norepinephrine Bit/0.9 % NaCl [Norepinephr-0.9% NaCl 4 mg/250] 4 mg in 250 ml IV TITRATE
[2020-02-02] MEDS ORDERED: Octreotide 500 MCG in Sodium Chloride 0.9% 495 ML IV SCH (10:30)
[2020-02-02] MEDS ORDERED: Sodium Chloride 0.9% 20 ML ONE (10:40)
[2020-02-02] MEDS ORDERED: Pantoprazole 40 MG Vial ONE (10:40)
[2020-02-02] MEDS ORDERED: SODIUM CHLORIDE 0.9% IV ONE ×6 (10:45→12:45)
[2020-02-02] MEDS ORDERED: FENTANYL IV ONE ×2 (10:45→12:45)
[2020-02-02] MEDS ORDERED: Ondansetron 4 MG/2 ML SDV ONE (10:45)
[2020-02-02] MEDS: Sodium Chloride 0.9% 1,000 ML IV ONE ×3 (10:55→20:41)
[2020-02-02] MEDS ORDERED: Etomidate 2 MG/ML 20 ML SDV IVPUSH ONE (11:07)
[2020-02-02] MEDS ORDERED: Succinylcholine 200 MG/10 ML MDV IV ONE (11:08)
[2020-02-02] MEDS ORDERED: fentaNYL 50 MCG/ML SDV ONE ×2 (11:23→11:24)
[2020-02-02] MEDS ORDERED: propofoL 50 ML ONE (11:26)
[2020-02-02 11:28] LABS: BLOOD UREA NITROGEN,BUN 32 mg/dL (7.0-18.0); CARBON DIOXIDE,CO2 16.7 mmol/L (21.0-32.0); CHLORIDE,CL 105 mmol/L (98-107); GLUCOSE RANDOM 147 mg/dL (74-106); LIPASE 333 U/L (73-393); POTASSIUM,K 4.4 mmol/L (3.5-5.1); SODIUM,NA 140 mmol/L (136-148)
[2020-02-02] MEDS ORDERED: PANTOPRAZOLE IV ONE ×4 (11:30)
[2020-02-02] MEDS ORDERED: fentaNYL 50 MCG/ML SDV IVPUSH ONE (11:47)
[2020-02-02] MEDS ORDERED: cefTRIAXone 1 GM in Premix Bag 1 BAG IV ONE (11:52)
--- NOTE | 2020-02-02 12:09 | CR ---
HISTORY: Hematemesis. Post intubation. COMPARISON: 12/06/2019. TECHNIQUE: Chest one-view. FINDINGS: The patient is intubated. The endotracheal tube tip is approximately 9 cm above the ella. Tip of the catheter is at the level of the thoracic inlet, and may be advanced 3-4 cm to the level of the clavicular heads. Indeterminate left perihilar opacity. Stable calcified granuloma the left mid lung zone, which measures 6 mm. There is no pneumothorax. The central airway is normal. Osseous structures are intact. IMPRESSION: Tip of the endotracheal tube is at the level of the thoracic inlet, and may be repositioned to the level of the clavicular heads as above. Dictated by Parker Beltran MD @ Feb 02 2020 12:05PM Signed by Dr. Parker Beltran @ Feb 02 2020 12:07PM
[2020-02-02] MEDS ORDERED: Octreotide 100 MCG/1 ML Amp IV ONE (12:30)
[2020-02-02] MEDS ORDERED: propofoL 100 ML IV SCH (12:30)
[2020-02-02 19:48] VITALS: BP 103/63; PULSE 111
== END 2020-02-02 13:40 | disposition other institution (70) ==
LOC: MW.ED 10:12
DX: K92.2 Gastrointestinal hemorrhage, unspecified (principal); M54.5 Low back pain; F10.129 Alcohol abuse with intoxication, unspecified
CPT/HCPCS: 31500; 36415; 36430; 36556; 43752; 51702; 71045; 80053; 80307; 81001; 82140; 83605; 83690; 83735; 84100; 84484; 85025; 85610; 85730; 86850; 86900; 86901; 86920; 86921; 86922; 87635; 96365; 96366; 96367; 96368; 96375; 96376; 99285; C9113; J0330; J0696; J2354; J2405; J3010; J3490; J7030; J7040; J7050; P9016; 99291; U0002